=== PATIENT | male | born 1940 | race Caucasian/White ===

== ENCOUNTER → 2017-09-14 10:49 | Outpatient (CLI) | payer MEDICARE, SELFPAY ==
[2017-09-14 12:02] LABS: Absolute Lymphocyte Count 0.99 X10^3/ul (0.83-4.51); Absolute Neutrophil Count 6.1 X10^3/uL (2.0-7.7); Basophil# 0.03 X10^3/uL; Basophil% 0.4 % (0-1); Eosinophil# 0.18 X10^3/uL; Eosinophils% 2.3 % (0-5); Hemoglobin 9.7 g/dl (13.0-16.5); Lymphocyte # 0.99 X10^3/ul (4.0); Lymphocyte % 12.7 % (19-41); Mean Corp Hgb Conc 31.3 g/gl (32-36); Mean Corpuscular Hgb 34.4 pg (27.0-32.0); Mean Corpuscular Volume 109.9 fL (80-94); Mean Platelet Vol. 10.3 fl (6.2-12.0); Monocyte# 0.43 X10^3/uL; Monocyte% 5.5 % (0-10); Neutrophil # 6.14 X10^3/uL (2.7-7.7); Neutrophil % 78.8 % (47-70); Platelet Count 239 K/mm3 (150-450); RBC Distribution Width CV 14.2 % (11.6-14.6); RBC Distribution Width SD 55.8 fl (35.1-43.9); Red Blood Count 2.82 M/mm3 (4.6-6.2); White Blood Count 7.8 K/mm3 (4.4-11.0)
[2017-09-14 12:03] LABS: POSITIVE COUNT NO; POSITIVE DIFFERENTIAL NO; POSITIVE MORPHOLOGY NO
[2017-09-14 12:07] LABS: ALB/GLOB Ratio 0.5 RATIO (0.9-2.4); AST(SGOT) 14 U/L (15-37); Alanine Aminotransfer ALT/SGPT 16 U/L (16-61); Albumin, Serum 2.5 g/dL (3.2-5.0); Alkaline Phosphatase 128 U/L (45-117); Anion Gap 10 (5-15); BUN 34 mg/dL (7-18); BUN/Creat Ratio 19.5 RATIO (10-20); Calcium,Total 8.3 mg/dL (8.5-10.1); Chloride 110 mmol/L (98-107); Cholesterol 58 mg/dL (200); Creatinine, Serum 1.74 mg/dL (0.70-1.30); EST Glomerular Filtration Rate 41 mL/min (>60); Est Glom Filt Rate - Afr Amer 49 mL/min (>60); Globulin 5.4 g/dL (2.2-4.2); Glucose 94 mg/dL (74-106); High Density Lipoprotein 27 mg/dL; Potassium 4.1 mmol/L (3.5-5.1); Protein, Total 7.9 g/dL (6.4-8.2); Sodium Level 140 mmol/L (136-145); Triglycerides 82 mg/dL; Very Low Density Lipoprotein 16 mg/dL (5-40)
[2017-09-14 12:18] LABS: Hemoglobin A1c 6.7 % (4.2-6.3)
[2017-09-14 12:22] LABS: Microalbumin,Random Urine 16.5 mg/L (NO RANGE EST.); Microalbumin:Creatinine Ratio 15.1 mg/g CRE (<30 mg/g CRE)
== END ==
PROVIDERS: Family Provider Family Medicine; PCP Family Medicine; Visit Provider Family Medicine
DX: E11.40 Type 2 diabetes mellitus with diabetic neuropathy, unspecified (principal); E11.65 Type 2 diabetes mellitus with hyperglycemia; E78.5 Hyperlipidemia, unspecified; I50.9 Heart failure, unspecified; N18.3 Chronic kidney disease, stage 3 (moderate); Z79.899 Other long term (current) drug therapy
CPT/HCPCS: 80053; 80061; 82043; 82570; 83036; 85025

== ENCOUNTER 2017-09-19 09:06 | Inpatient (IN) | payer MEDICARE, SELFPAY ==
[2017-09-19] VITALS (11 sets, daily range): BP systolic 111–136; BP diastolic 52–69; PULSE 68–90; RESP 16–20; TEMP 36.1–37.3; O2SAT 94–98; BMI 42.5; BMI 40.2
--- NOTE | 2017-09-19 09:16 | RAD_ITS ---
STUDY: X-RAY - LEFT FOOT CLINICAL: Male, 77 years old. Ulcer. TECHNIQUE: 4view(s) of the foot. COMPARISON: None. FINDINGS: There is demineralization of the bones. Arthritic change of the hindfoot and midfoot. There is soft tissue lucency the plantar aspect of the heel consistent with ulcer. There is demineralization of the metatarsi. There is degenerative arthrosis of the metatarsophalangeal joint of the hallux . There are cystic regions. Normal tibial and fibular sesamoid bones. Normal interphalangeal joint of the great toe. Normal phalanges of the great toe. Arthrosis at the second through fifth metatarsophalangeal joints. Normal interphalangeal joints and phalanges of the lesser toes. The soft tissue structures are unremarkable. There is no demonstrated fracture. RAD/Foot min 3 Views IMPRESSION: No focal erosion. Soft tissue lucency consistent with ulcer. Demineralization. Arthritic change. Electronically Signed: Rupesh Carter MD at 10:20 EDT , Service support ,
--- NOTE | 2017-09-19 09:16 | RAD_ITS ---
STUDY: X-RAY - LEFT ANKLE REASON FOR EXAM: Male, 77 years old. Ulcer TECHNIQUE: 3 view(s) of the ankle. COMPARISON: None. FINDINGS: Demineralization of the visualized distal tibia and fibula. Spurring of the medial and lateral malleoli. Arthritic change at the tibiotalar articulation . Demineralization of the visualized talus and calcaneus. Mild arthritic change of the hindfoot. There are atherosclerotic calcifications. There is soft tissue lucency along the plantar aspect consistent with ulcer. RAD/Ankle min 3 Views IMPRESSION: Soft tissue ulcer. No focal erosion. Arthritic change. Demineralization. Electronically Signed: Rupesh Carter MD at 10:17 EDT , Service support ,
[2017-09-19] MEDS: 0.9% Normal Saline 1,000 ML 1000 ML IV (09:34)
--- NOTE | 2017-09-19 09:34 | ED.VISSUMM ---
- ER Visit Summary Date of Service: 09/19/17 Chief Complaint: Left foot infection History of Present Illness: The patient is a 77 M with a history of gout who presents with a left foot infection. Patient has noticed increased swelling, redness, and clear liquid drainage from his left foot and ankle. This is gradually worsening over the past 2 weeks. He takes aspirin. He does not take any other medications for gout specifically. Does report a history of CHF. Denies any history of DVT. Denies trauma. Denies fever. Physical Examination: Afebrile and vital signs unremarkable. Patient is alert and oriented. Sitting comfortably. Left foot and lower leg diffusely swollen, erythematous, warm, seeping serous fluid. Superficial ulcer to dorsal foot, medial left foot, and left heel. Neurovascularly intact distally. Test Results: Labs, ESR, CRP, cultures pending. X-rays of the foot and ankle are pending. Emergency Department Course and Treatment: Patient has signs of venous stasis from CHF. He also has a history of diabetes and gout. He has multiple foot and ankle ulcerations and signs of cellulitis. Labs, x-rays, cultures pending. Will start the patient on Zosyn and vancomycin. White count normal. No signs of sepsis. Hemoglobin 9.2. Glucose 44, BUN 55, creatinine 3.04. His creatinine has basically doubled. He received cookies and orange juice for his hypoglycemia. We will continue to monitor. ESR 80 and CRP 37. X-rays show chronic changes and skin ulcers. Blood cultures pending. Patient has acute kidney injury and says he has not urinated since yesterday. A Sosa catheter was placed to monitor urine output. Patient continued to be hypoglycemic. He has a normal mental status and no complaints. We will continue to have him eat and drink. We will continue to monitor. Patient will need inpatient care and the hospitalist was contacted. Treatment Plan: As above Disposition: Admission Impression: 1. Left leg cellulitis 2. Acute kidney injury 3. Anemia 4. Hypoglycemia This note was generated with [employer] dictation software. It may contain incorrect words, spelling, and punctuation that were not noted in review of the chart prior to signing ED Disposition - Plan for ED Patient: Chief Complaint: Lower Extremity Injury Referrals: Kian Valdez III, MD [Primary Care Provider] -
[2017-09-19 09:54] LABS: Absolute Lymphocyte Count 1.07 X10^3/ul (0.83-4.51); Absolute Neutrophil Count 5.7 X10^3/uL (2.0-7.7); Basophil# 0.02 X10^3/uL; Basophil% 0.3 % (0-1); Eosinophil# 0.16 X10^3/uL; Eosinophils% 2.2 % (0-5); Hemoglobin 9.2 g/dl (13.0-16.5); Lymphocyte # 1.07 X10^3/ul (4.0); Lymphocyte % 14.7 % (19-41); Mean Corp Hgb Conc 30.7 g/gl (32-36); Mean Corpuscular Hgb 33.3 pg (27.0-32.0); Mean Corpuscular Volume 108.7 fL (80-94); Mean Platelet Vol. 10.1 fl (6.2-12.0); Monocyte# 0.36 X10^3/uL; Monocyte% 4.9 % (0-10); Neutrophil # 5.66 X10^3/uL (2.7-7.7); Neutrophil % 77.8 % (47-70); Platelet Count 204 K/mm3 (150-450); RBC Distribution Width CV 15.1 % (11.6-14.6); RBC Distribution Width SD 59.5 fl (35.1-43.9); Red Blood Count 2.76 M/mm3 (4.6-6.2); White Blood Count 7.3 K/mm3 (4.4-11.0)
[2017-09-19 09:58] LABS: POSITIVE COUNT NO; POSITIVE DIFFERENTIAL NO; POSITIVE MORPHOLOGY NO
[2017-09-19 10:06] LABS: Erythrocyte Sedimentation Rate 80 mm/hr (0-20)
[2017-09-19 10:12] LABS: Anion Gap 11 (5-15); BUN 55 mg/dL (7-18); BUN/Creat Ratio 18.1 RATIO (10-20); Calcium,Total 8.2 mg/dL (8.5-10.1); Chloride 110 mmol/L (98-107); Creatinine, Serum 3.04 mg/dL (0.70-1.30); EST Glomerular Filtration Rate 21 mL/min (>60); Est Glom Filt Rate - Afr Amer 26 mL/min (>60); Estimated Creatinine Clearance 19.38 ml/min; Glucose 44 mg/dL (74-106); Potassium 4.4 mmol/L (3.5-5.1); Sodium Level 139 mmol/L (136-145)
--- NOTE | 2017-09-19 10:13 | ED.RN ---
DR ALSTON NOTIFIED OF BLOOD SUGAR RESULTS. PT GIVEN PEANUT BUTTER, ANJANA DOONES, AND ORANGE JUICE
[2017-09-19 10:41] LABS: Bedside Glucose 40 mg/dL (70-110)
[2017-09-19] MEDS: Dextrose 50%-Water 25 GM/50 ML DISP.SYRIN IV (11:16)
[2017-09-19] MEDS: Piperacil/Tazobactam 3.375 GM/50 ML ML IV ×2 (11:17→21:31)
[2017-09-19 11:20] LABS: Bedside Glucose 46 mg/dL (70-110)
--- NOTE | 2017-09-19 11:28 | ED.RN ---
PCU WILL CALL BACK.
--- NOTE | 2017-09-19 12:26 | VDLE_ITS ---
Reason For Study: swelling Procedure LEFT Exam performed portable in patient room. CFV is compressible, spontaneous, phasic, The exam was diagnostic. competent, and demonstrates normal A preliminary report was called and/or faxed augmentation. to the pt's RN. FV is compressible, spontaneous, phasic, competent and demonstrates normal augmentation. POP V is compressible, spontaneous, phasic, competent and demonstrates normal augmentation. T/P Trunk is compressible. PTV is compressible. LT PerV is compressible. GSV is harvested. Interpretation Summary There is no evidence of left lower extremity deep vein thrombosis. Surgically harvested left great saphenous vein. Ordering Physician: Sebastien Love Referring Physician: Kian Valdez Performed By: Lior Mar RVT
[2017-09-19 12:27] LABS: International Normalized Ratio 1.3
--- NOTE | 2017-09-19 12:28 | PCM.HP.STD ---
Problem List (1) Stage III chronic kidney disease Status: Chronic (2) Type 2 diabetes mellitus Status: Chronic (3) Status post coronary artery bypass graft Status: Chronic (4) Coronary artery disease Status: Chronic (5) Hyperlipidemia Status: Chronic (6) Hypertension Status: Chronic History of Present Illness Date of Admission: 09/19/17 Chief Complaint: Left foot/leg swelling and redness, pain. The patient is a 77 year old M with past medical history as mentioned above presented to the emergency room because of left foot/left leg swelling, redness and pain. The patient is poor informant and was not able to provide detailed history. He states that 2 weeks ago, he had acute on chronic flare up of left ankle gout with left ankle joint pain, swelling and erythema. Within couple of days, he started noticing swelling and erythema going up to the left leg, has been getting worse with increasing pain. He described this pain as dull aching pain, not radiating, could not rate his pain, no aggravating or relieving factors. He denies fever or chills. He mentioned that he has been getting gout flareups over the last 27 years. He had blisters on the dorsum of the left foot as well as the back of the left lower leg that was ruptured and he has been losing serous fluids from there and he described it as urine. He had a history of type 2 diabetes mellitus and he has been on glimepiride, metformin and pioglitazone. His most recent hemoglobin A1c was few days ago and it was 6.7. He mentioned that his blood sugar usually in the 60s-70s in the morning and in the emergency room today, blood sugar was 44 mg/dL. He had history of CAD status post CABG and that has been stable and he is on aspirin, statins, beta blockers and YOSSI inhibitors. His EKG revealed normal sinus rhythm without evidence of acute ischemic changes. He had a history of gout and he has been on allopurinol for maintenance. He has history of hypertension and his blood pressure has been under control with lisinopril and metoprolol. In the emergency room, his vital signs were stable, was afebrile. His routine blood work was remarkable for hemoglobin of 9.2 g/dL, BUN of 55 and creatinine of 3.04. His blood glucose was 44 mg/dL. His EKG revealed normal sinus rhythm, no evidence of acute ischemic changes. His ESR and C-reactive protein was elevated. Left ankle x-ray revealed soft tissue swelling/ulcer without evidence of acute fractures or focal erosion. X-ray of the left foot revealed soft tissue swelling/ulcer. He is being admitted for acute left lower extremity cellulitis, probably infected stage I left leg ulcers, acute on chronic renal failure, anemia and hypoglycemia. Past Medical History Past Medical History (Chronic Problems): Chronic Problems Stage III chronic kidney disease (Chronic) Type 2 diabetes mellitus (Chronic) Status post coronary artery bypass graft (Chronic) Coronary artery disease (Chronic) Hyperlipidemia (Chronic) Hypertension (Chronic) Allergies No Known Allergies Allergy (Verified 09/19/17 09:11) Home Medications: Ambulatory Orders Medication Instructions Recorded Aspirin 325 mg PO DAILY@0800 03/25/15 Furosemide 40 mg PO DAILY 03/25/15 Glimepiride 4 mg PO BID 03/25/15 Metformin [Metformin HCl] 500 mg PO BID 03/25/15 Allopurinol [Zyloprim] 300 mg PO DAILYCM #30 tablet 04/05/15 Atorvastatin Calcium [Lipitor] 40 mg PO QHS #30 tablet 04/05/15 Lisinopril [Zestril] 5 mg PO DAILY #30 tablet 04/05/15 Metoprolol Tartrate [Lopressor 100 mg PO BID #60 tablet 04/05/15 (beta dixon)] Pioglitazone [Actos] 45 mg PO DAILY 09/19/17 Surgical History: coronary bypass surgery, herniorrhaphy Psychiatric History: No pertinent psych hx Lives: Spouse/ Significant Other Smoking Status: Former smoker Alcohol: None Drugs: None - *Family History Maternal History Items: No pertinent history Paternal History Items: No pertinent history Review of Systems Constitutional: Denies: Anorexia, Chills, Fever, Weakness Eyes: Denies: Blurred vision, Double vision, Drainage, Redness HEENT: Denies: Difficulty Hearing, Ear Pain, Eye Pain, Nasal Congestion, Sore Throat Cardiovascular: Reports: Edema. Denies: Chest Pain, Chest Pressure, Chest Tightness, Heaviness, Light Headedness, Palpitations, Paroxysmal Noc. Dyspnea, Syncope Respiratory: Denies: Cough, Pleuritic Pain, Shortness of Breath, Sputum production, Wheezing Gastrointestinal: Denies: Abdominal Pain, Constipation, Diarrhea, Nausea, Vomiting Genitourinary: Denies: Dysuria, Frequency, Hematuria Musculoskeletal: Reports: Leg Pain. Denies: Arm Pain, Back Pain Skin: Denies: Dryness, Rash Neurological: Denies: Balance problems, Double vision, Change in Speech, Slurred speech, Confusion, Headaches, Incoordination, Numbness Psychiatric: Denies: Anxiety, Depression Endocrine: Denies: Change in Body Habitus, Polydipsia VTE Information - Inpt Only VTE Present on Admission: No VTE Mechan Device Prophylaxis: None VTE Pharm Prophylaxis ordered?: Yes - Physical Exam General: Alert, Oriented x3, Cooperative, No apparent distress HEENT: Atraumatic, PERRLA, EOMI Oral: Moist Mucosa, No Gingival or Mucosal Lesions/ Ulcerations Neck: Supple, No JVD, Negative Carotid Bruits, Trachea Midline, Thyroid Normal Size and Texture Lungs: Clear to auscultation, No rhonchi, No wheeze, No rales, Diminished Cardiovascular: Regular rate, Regular Rhythm, Normal S1, Normal S2, PMI Normal Abdomen: Bowel Sounds Present, Soft, Non Tender, Non-Distended, No Hepato-splenomegaly, Obese Extremities: No clubbing, No cyanosis, Edema - ++ Edema. Left lower extremity: Erythema and swelling from just below left knee down to the left foot, hot to palpation, nontender. Stage I multiple ulcers on the dorsum of the left foot measuring about 2 x 2 centimeters, left medial malleolar ulcer measuring about 3 x 3 cm and another ulcer at the back of the lower left leg measuring about 5 x 5 cm with oozing and serous drainage. Skin: No rashes, Ulcer/ Wound Lymphatic: No Cervical, Supraclavicular, or Inguinal Adenopathy Neurological: Cranial nerves II-XII grossly intact, Motor Exam 5/5 strength throughout Psych/Mental Status: Normal Affect, Appropriate, Alert and oriented to time, place, person, mood and affect Vital Signs Temp Pulse Resp BP Pulse Ox 97.7 F L 74 20 H 112/52 L 97 09/19/17 12:06 09/19/17 12:06 09/19/17 12:06 09/19/17 12:06 09/19/17 12:06 Oxygen Delivery Method Room Air Weight: 264 lb 8.875 oz Body Mass Index (BMI) 40.2 POC Glucose 09/19/17 11:13 POC Glucose 46 L Laboratory Tests 09/19/17 09/19/17 09/19/17 Range/Units 12:38 12:35 11:13 WBC (4.4-11.0) K/mm3 RBC (4.6-6.2) M/mm3 Hgb (13.0-16.5) g/dl Hct (40-54) % MCV (80-94) fL MCH (27.0-32.0) pg MCHC (32-36) g/gl RDW (11.6-14.6) % RDW Differential (35.1-43.9) fl Plt Count (150-450) K/mm3 MPV (6.2-12.0) fl Immature Gran % (Auto) (0.0-0.9) % Neut % (Auto) (47-70) % Lymph % (Auto) (19-41) % [place] % (Auto) (0-10) % Eos % (Auto) (0-5) % Baso % (Auto) (0-1) % Absolute Neuts (auto) (2.0-7.7) X10^3/uL Absolute Lymphs (auto) (0.83-4.51) X10^3/ul Total Counted ESR (0-20) mm/hr PT (11.7-14.9) SECONDS INR Sodium (136-145) mmol/L Potassium (3.5-5.1) mmol/L Chloride (98-107) mmol/L Carbon Dioxide (21.0-32.0) mmol/L Anion Gap (5-15) BUN (7-18) mg/dL Creatinine (0.70-1.30) mg/dL Estim Creat Clear Calc ml/min Est GFR (MDRD) Af Amer (>60) mL/min Est GFR (MDRD) Non-Af (>60) mL/min BUN/Creatinine Ratio (10-20) RATIO Glucose (74-106) mg/dL Uric Acid (3.5-7.2) mg/dL Calcium (8.5-10.1) mg/dL Iron (65-175) ug/dL TIBC (250-450) ug/dL Iron Saturation (15.0-55.0) % Ferritin (26-388) ng/mL Total Bilirubin (0.20-1.00) mg/dL Direct Bilirubin (0.00-0.30) mg/dL AST (15-37) U/L ALT (16-61) U/L Alkaline Phosphatase (45-117) U/L C-React Prot Ext Range (0.0-3.0) mg/L Total Protein (6.4-8.2) g/dL Albumin (3.2-5.0) g/dL Globulin (2.2-4.2) g/dL Urine Color Yellow (Yellow) Urine Clarity Clear (Clear) Urine pH 5.0 (5.0 - 8.0) Ur Specific [place] 1.020 (1.002-1.030) Urine Protein 30 H (Negative) mg/dl Urine Glucose (UA) Normal (Normal) mg/dl Urine Ketones Negative (Negative) mg/dl Urine Occult Blood 250 H (Negative) /ul Urine Nitrite Negative (Negative) Urine Bilirubin Negative (Negative) mg/dL Urine Urobilinogen Normal (Normal) mg/dl Ur Leukocyte Esterase 500 H (Negative) /ul POC Glucose 145 H 46 L (70-110) mg/dL 09/19/17 09/19/17 09/19/17 Range/Units 10:34 10:25 09:30 WBC (4.4-11.0) K/mm3 RBC (4.6-6.2) M/mm3 Hgb (13.0-16.5) g/dl Hct (40-54) % MCV (80-94) fL MCH (27.0-32.0) pg MCHC (32-36) g/gl RDW (11.6-14.6) % RDW Differential (35.1-43.9) fl Plt Count (150-450) K/mm3 MPV (6.2-12.0) fl Immature Gran % (Auto) (0.0-0.9) % Neut % (Auto) (47-70) % Lymph % (Auto) (19-41) % [place] % (Auto) (0-10) % Eos % (Auto) (0-5) % Baso % (Auto) (0-1) % Absolute Neuts (auto) (2.0-7.7) X10^3/uL Absolute Lymphs (auto) (0.83-4.51) X10^3/ul Total Counted ESR (0-20) mm/hr PT 16.0 H (11.7-14.9) SECONDS INR 1.3 Sodium (136-145) mmol/L Potassium (3.5-5.1) mmol/L Chloride (98-107) mmol/L Carbon Dioxide (21.0-32.0) mmol/L Anion Gap (5-15) BUN (7-18) mg/dL Creatinine (0.70-1.30) mg/dL Estim Creat Clear Calc ml/min Est GFR (MDRD) Af Amer (>60) mL/min Est GFR (MDRD) Non-Af (>60) mL/min BUN/Creatinine Ratio (10-20) RATIO Glucose (74-106) mg/dL Uric Acid 6.2 (3.5-7.2) mg/dL Calcium (8.5-10.1) mg/dL Iron 42 L (65-175) ug/dL TIBC 346 (250-450) ug/dL Iron Saturation 12.1 L (15.0-55.0) % Ferritin 87 (26-388) ng/mL Total Bilirubin 0.20 (0.20-1.00) mg/dL Direct Bilirubin 0.11 (0.00-0.30) mg/dL AST 15 (15-37) U/L ALT 11 L (16-61) U/L Alkaline Phosphatase 118 H (45-117) U/L C-React Prot Ext Range (0.0-3.0) mg/L Total Protein 7.5 (6.4-8.2) g/dL Albumin 2.5 L (3.2-5.0) g/dL Globulin 5.0 H (2.2-4.2) g/dL Urine Color (Yellow) Urine Clarity (Clear) Urine pH (5.0 - 8.0) Ur Specific [place] (1.002-1.030) Urine Protein (Negative) mg/dl Urine Glucose (UA) (Normal) mg/dl Urine Ketones (Negative) mg/dl Urine Occult Blood (Negative) /ul Urine Nitrite (Negative) Urine Bilirubin (Negative) mg/dL Urine Urobilinogen (Normal) mg/dl Ur Leukocyte Esterase (Negative) /ul POC Glucose 40 L* (70-110) mg/dL 09/19/17 09/19/17 Range/Units 09:30 09:30 WBC 7.3 (4.4-11.0) K/mm3 RBC 2.76 L (4.6-6.2) M/mm3 Hgb 9.2 L (13.0-16.5) g/dl Hct 30.0 L (40-54) % MCV 108.7 H (80-94) fL MCH 33.3 H (27.0-32.0) pg MCHC 30.7 L (32-36) g/gl RDW 15.1 H (11.6-14.6) % RDW Differential 59.5 H (35.1-43.9) fl Plt Count 204 (150-450) K/mm3 MPV 10.1 (6.2-12.0) fl Immature Gran % (Auto) 0.100 (0.0-0.9) % Neut % (Auto) 77.8 H (47-70) % Lymph % (Auto) 14.7 L (19-41) % [place] % (Auto) 4.9 (0-10) % Eos % (Auto) 2.2 (0-5) % Baso % (Auto) 0.3 (0-1) % Absolute Neuts (auto) 5.7 (2.0-7.7) X10^3/uL Absolute Lymphs (auto) 1.07 (0.83-4.51) X10^3/ul Total Counted Not Reportable ESR 80 H (0-20) mm/hr PT (11.7-14.9) SECONDS INR Sodium 139 (136-145) mmol/L Potassium 4.4 (3.5-5.1) mmol/L Chloride 110 H (98-107) mmol/L Carbon Dioxide 18.0 L (21.0-32.0) mmol/L Anion Gap 11 (5-15) BUN 55 H (7-18) mg/dL Creatinine 3.04 H (0.70-1.30) mg/dL Estim Creat Clear Calc 19.38 ml/min Est GFR (MDRD) Af Amer 26 L (>60) mL/min Est GFR (MDRD) Non-Af 21 L (>60) mL/min BUN/Creatinine Ratio 18.1 (10-20) RATIO Glucose 44 L* (74-106) mg/dL Uric Acid (3.5-7.2) mg/dL Calcium 8.2 L (8.5-10.1) mg/dL Iron (65-175) ug/dL TIBC (250-450) ug/dL Iron Saturation (15.0-55.0) % Ferritin (26-388) ng/mL Total Bilirubin (0.20-1.00) mg/dL Direct Bilirubin (0.00-0.30) mg/dL AST (15-37) U/L ALT (16-61) U/L Alkaline Phosphatase (45-117) U/L C-React Prot Ext Range 37.70 H (0.0-3.0) mg/L Total Protein (6.4-8.2) g/dL Albumin (3.2-5.0) g/dL Globulin (2.2-4.2) g/dL Urine Color (Yellow) Urine Clarity (Clear) Urine pH (5.0 - 8.0) Ur Specific [place] (1.002-1.030) Urine Protein (Negative) mg/dl Urine Glucose (UA) (Normal) mg/dl Urine Ketones (Negative) mg/dl Urine Occult Blood (Negative) /ul Urine Nitrite (Negative) Urine Bilirubin (Negative) mg/dL Urine Urobilinogen (Normal) mg/dl Ur Leukocyte Esterase (Negative) /ul POC Glucose (70-110) mg/dL Clinical Impression(s) from Imaging Studies Ankle X-Ray 09/19/17 09:16 IMPRESSION: Soft tissue ulcer. No focal erosion. Arthritic change. Demineralization. Electronically Signed: Rupesh Carter MD at 10:17 EDT , Service support , Foot X-Ray 09/19/17 09:16 IMPRESSION: No focal erosion. Soft tissue lucency consistent with ulcer. Demineralization. Arthritic change. Electronically Signed: Rupesh Carter MD at 10:20 EDT , Service support , Assessment/Plan This is a 77 years old male patient presented to the emergency room because of left leg/left foot pain, swelling and erythema in context of history of recent flareup, found to have acute left lower extremity cellulitis with infected left leg/foot ulcers, acute kidney injury on top of stage III chronic kidney disease, hypoglycemia and anemia. #1 acute left lower extremity cellulitis/infected left leg/left foot ulcers: Patient had chronic gout with frequent flareups, most recently was couple weeks ago. Since then, he has been having increasing left leg/left foot swelling and erythema as well as blistering that was ruptured. No evidence of sepsis or severe sepsis. X-ray of the left foot and left ankle reveals soft tissue swelling, no bony erosions. ESR and C-reactive protein are high. Plan: Admit to PCU, cardiac monitoring, blood culture, wound culture, venous Doppler to rule out DVT, start IV vancomycin and Zosyn, wound care nurse consult, podiatry consult, PT OT evaluation and treatment. #2 probable acute gouty arthritis of the left ankle/left foot: Left leg and left foot is diffusely red and erythematous, patient complained of left ankle pain. At this time, underlying acute gouty attacks cannot be ruled out. Plan: Check serum uric acid, start prednisone, hold allopurinol. #3 acute kidney injury on top of stage III chronic kidney disease: With oliguria. This is likely due to medication side effects including Lasix, metformin, glimepiride and allopurinol. Plan for IV fluids, input output chart, hold nephrotoxic drugs, repeat BMP tomorrow morning. #4 hypoglycemia: Blood sugar was in the 40s in the emergency room. Patient mentioned that his blood sugar in the mornings is around 60s-70s, he does check his blood sugar once a day. He was given D50 in the emergency room. Plan: IV fluids with D5 percent normal saline, Accu-Cheks every 4 hours, insulin sliding scale, hold metformin, glimepiride and pioglitazone. #5 anemia: Unknown if this is acute on chronic. His hemoglobin back in July, was 14.3. Few days ago, hemoglobin was 9.7 g/dL and admission hemoglobin is 9.2 g/dL. Patient denied any active bleeding from his body orifices. His macrocytic anemia, MCV is high. Platelet count is normal. Plan: Iron, serum ferritin, TIBC, B12, RBC folate, pro time and INR, stool for occult blood. #6 CAD status post CABG: Stable, no acute issues. EKG reviewed, no acute ischemic changes. Continue aspirin and metoprolol, hold lisinopril because of acute kidney injury. #7 type 2 diabetes mellitus: Regular diet, Accu-Cheks every 4 hours, insulin sliding scale, hold metformin, glimepiride and pioglitazone. #8 hypertension: Blood pressure stable, continue metoprolol, hold lisinopril. #9 hyperlipidemia: Continue statins. #10 DVT prophylaxis: Subcu heparin. This note was generated with [employer] dictation software. It may contain incorrect words, spelling, and punctuation that were not noted in checking the note before signing. Code Visit Inpatient E&M: 81650 Init Hosp L3
--- NOTE | 2017-09-19 12:34 | HP.PCM_ITS ---
Problem List (1) Stage III chronic kidney disease Status: Chronic (2) Type 2 diabetes mellitus Status: Chronic (3) Status post coronary artery bypass graft Status: Chronic (4) Coronary artery disease Status: Chronic (5) Hyperlipidemia Status: Chronic (6) Hypertension Status: Chronic History of Present Illness Date of Admission: 09/19/17 Chief Complaint: Left foot/leg swelling and redness, pain. The patient is a 77 year old M with past medical history as mentioned above presented to the emergency room because of left foot/left leg swelling, redness and pain. The patient is poor informant and was not able to provide detailed history. He states that 2 weeks ago, he had acute on chronic flare up of left ankle gout with left ankle joint pain, swelling and erythema. Within couple of days, he started noticing swelling and erythema going up to the left leg, has been getting worse with increasing pain. He described this pain as dull aching pain, not radiating, could not rate his pain, no aggravating or relieving factors. He denies fever or chills. He mentioned that he has been getting gout flareups over the last 27 years. He had blisters on the dorsum of the left foot as well as the back of the left lower leg that was ruptured and he has been losing serous fluids from there and he described it as urine. He had a history of type 2 diabetes mellitus and he has been on glimepiride, metformin and pioglitazone. His most recent hemoglobin A1c was few days ago and it was 6.7. He mentioned that his blood sugar usually in the 60s-70s in the morning and in the emergency room today, blood sugar was 44 mg/dL. He had history of CAD status post CABG and that has been stable and he is on aspirin, statins, beta blockers and YOSSI inhibitors. His EKG revealed normal sinus rhythm without evidence of acute ischemic changes. He had a history of gout and he has been on allopurinol for maintenance. He has history of hypertension and his blood pressure has been under control with lisinopril and metoprolol. In the emergency room, his vital signs were stable, was afebrile. His routine blood work was remarkable for hemoglobin of 9.2 g/dL, BUN of 55 and creatinine of 3.04. His blood glucose was 44 mg/dL. His EKG revealed normal sinus rhythm, no evidence of acute ischemic changes. His ESR and C-reactive protein was elevated. Left ankle x-ray revealed soft tissue swelling/ulcer without evidence of acute fractures or focal erosion. X-ray of the left foot revealed soft tissue swelling/ulcer. He is being admitted for acute left lower extremity cellulitis, probably infected stage I left leg ulcers, acute on chronic renal failure, anemia and hypoglycemia. Past Medical History Past Medical History (Chronic Problems): Chronic Problems Stage III chronic kidney disease (Chronic) Type 2 diabetes mellitus (Chronic) Status post coronary artery bypass graft (Chronic) Coronary artery disease (Chronic) Hyperlipidemia (Chronic) Hypertension (Chronic) Allergies No Known Allergies Allergy (Verified 09/19/17 09:11) Home Medications: Ambulatory Orders Medication Instructions Recorded Aspirin 325 mg PO DAILY@0800 03/25/15 Furosemide 40 mg PO DAILY 03/25/15 Glimepiride 4 mg PO BID 03/25/15 Metformin [Metformin HCl] 500 mg PO BID 03/25/15 Allopurinol [Zyloprim] 300 mg PO DAILYCM #30 tablet 04/05/15 Atorvastatin Calcium [Lipitor] 40 mg PO QHS #30 tablet 04/05/15 Lisinopril [Zestril] 5 mg PO DAILY #30 tablet 04/05/15 Metoprolol Tartrate [Lopressor 100 mg PO BID #60 tablet 04/05/15 (beta dixon)] Pioglitazone [Actos] 45 mg PO DAILY 09/19/17 Surgical History: coronary bypass surgery, herniorrhaphy Psychiatric History: No pertinent psych hx Lives: Spouse/ Significant Other Smoking Status: Former smoker Alcohol: None Drugs: None - *Family History Maternal History Items: No pertinent history Paternal History Items: No pertinent history Review of Systems Constitutional: Denies: Anorexia, Chills, Fever, Weakness Eyes: Denies: Blurred vision, Double vision, Drainage, Redness HEENT: Denies: Difficulty Hearing, Ear Pain, Eye Pain, Nasal Congestion, Sore Throat Cardiovascular: Reports: Edema. Denies: Chest Pain, Chest Pressure, Chest Tightness, Heaviness, Light Headedness, Palpitations, Paroxysmal Noc. Dyspnea, Syncope Respiratory: Denies: Cough, Pleuritic Pain, Shortness of Breath, Sputum production, Wheezing Gastrointestinal: Denies: Abdominal Pain, Constipation, Diarrhea, Nausea, Vomiting Genitourinary: Denies: Dysuria, Frequency, Hematuria Musculoskeletal: Reports: Leg Pain. Denies: Arm Pain, Back Pain Skin: Denies: Dryness, Rash Neurological: Denies: Balance problems, Double vision, Change in Speech, Slurred speech, Confusion, Headaches, Incoordination, Numbness Psychiatric: Denies: Anxiety, Depression Endocrine: Denies: Change in Body Habitus, Polydipsia VTE Information - Inpt Only VTE Present on Admission: No VTE Mechan Device Prophylaxis: None VTE Pharm Prophylaxis ordered?: Yes - Physical Exam General: Alert, Oriented x3, Cooperative, No apparent distress HEENT: Atraumatic, PERRLA, EOMI Oral: Moist Mucosa, No Gingival or Mucosal Lesions/ Ulcerations Neck: Supple, No JVD, Negative Carotid Bruits, Trachea Midline, Thyroid Normal Size and Texture Lungs: Clear to auscultation, No rhonchi, No wheeze, No rales, Diminished Cardiovascular: Regular rate, Regular Rhythm, Normal S1, Normal S2, PMI Normal Abdomen: Bowel Sounds Present, Soft, Non Tender, Non-Distended, No Hepato- splenomegaly, Obese Extremities: No clubbing, No cyanosis, Edema - ++ Edema. Left lower extremity: Erythema and swelling from just below left knee down to the left foot, hot to palpation, nontender. Stage I multiple ulcers on the dorsum of the left foot measuring about 2 x 2 centimeters, left medial malleolar ulcer measuring about 3 x 3 cm and another ulcer at the back of the lower left leg measuring about 5 x 5 cm with oozing and serous drainage. Skin: No rashes, Ulcer/ Wound Lymphatic: No Cervical, Supraclavicular, or Inguinal Adenopathy Neurological: Cranial nerves II-XII grossly intact, Motor Exam 5/5 strength throughout Psych/Mental Status: Normal Affect, Appropriate, Alert and oriented to time, place, person, mood and affect Vital Signs Temp Pulse Resp BP Pulse Ox 97.7 F L 74 20 H 112/52 L 97 09/19/17 12:06 09/19/17 12:06 09/19/17 12:06 09/19/17 12:06 09/19/17 12:06 Oxygen Delivery Method Room Air Weight: 264 lb 8.875 oz Body Mass Index (BMI) 40.2 POC Glucose 09/19/17 11:13 POC Glucose 46 L Laboratory Tests 3 09/19/17 09/19/17 09/19/17 Range/Units 12:38 12:35 11:13 WBC (4.4-11.0) K/mm3 RBC (4.6-6.2) M/mm3 Hgb (13.0-16.5) g/dl Hct (40-54) % MCV (80-94) fL MCH (27.0-32.0) pg MCHC (32-36) g/gl RDW (11.6-14.6) % RDW Differential (35.1-43.9) fl Plt Count (150-450) K/mm3 MPV (6.2-12.0) fl Immature Gran % (Auto) (0.0-0.9) % Neut % (Auto) (47-70) % Lymph % (Auto) (19-41) % [place] % (Auto) (0-10) % Eos % (Auto) (0-5) % Baso % (Auto) (0-1) % Absolute Neuts (auto) (2.0-7.7) X10^3/uL Absolute Lymphs (auto) (0.83-4.51) X10^3/ul Total Counted ESR (0-20) mm/hr PT (11.7-14.9) SECONDS INR Sodium (136-145) mmol/L Potassium (3.5-5.1) mmol/L Chloride (98-107) mmol/L Carbon Dioxide (21.0-32.0) mmol/L Anion Gap (5-15) BUN (7-18) mg/dL Creatinine (0.70-1.30) mg/dL Estim Creat Clear Calc ml/min Est GFR (MDRD) Af Amer (>60) mL/min Est GFR (MDRD) Non-Af (>60) mL/min BUN/Creatinine Ratio (10-20) RATIO Glucose (74-106) mg/dL Uric Acid (3.5-7.2) mg/dL Calcium (8.5-10.1) mg/dL Iron (65-175) ug/dL TIBC (250-450) ug/dL Iron Saturation (15.0-55.0) % Ferritin (26-388) ng/mL Total Bilirubin (0.20-1.00) mg/dL Direct Bilirubin (0.00-0.30) mg/dL AST (15-37) U/L ALT (16-61) U/L Alkaline Phosphatase (45-117) U/L C-React Prot Ext Range (0.0-3.0) mg/L Total Protein (6.4-8.2) g/dL Albumin (3.2-5.0) g/dL Globulin (2.2-4.2) g/dL Urine Color Yellow (Yellow) Urine Clarity Clear (Clear) Urine pH 5.0 (5.0 - 8.0) Ur Specific [place] 1.020 (1.002-1.030) Urine Protein 30 H (Negative) mg/dl Urine Glucose (UA) Normal (Normal) mg/dl Urine Ketones Negative (Negative) mg/dl Urine Occult Blood 250 H (Negative) /ul Urine Nitrite Negative (Negative) Urine Bilirubin Negative (Negative) mg/dL Urine Urobilinogen Normal (Normal) mg/dl Ur Leukocyte Esterase 500 H (Negative) /ul POC Glucose 145 H 46 L (70-110) mg/dL 3 09/19/17 09/19/17 09/19/17 Range/Units 10:34 10:25 09:30 WBC (4.4-11.0) K/mm3 RBC (4.6-6.2) M/mm3 Hgb (13.0-16.5) g/dl Hct (40-54) % MCV (80-94) fL MCH (27.0-32.0) pg MCHC (32-36) g/gl RDW (11.6-14.6) % RDW Differential (35.1-43.9) fl Plt Count (150-450) K/mm3 MPV (6.2-12.0) fl Immature Gran % (Auto) (0.0-0.9) % Neut % (Auto) (47-70) % Lymph % (Auto) (19-41) % [place] % (Auto) (0-10) % Eos % (Auto) (0-5) % Baso % (Auto) (0-1) % Absolute Neuts (auto) (2.0-7.7) X10^3/uL Absolute Lymphs (auto) (0.83-4.51) X10^3/ul Total Counted ESR (0-20) mm/hr PT 16.0 H (11.7-14.9) SECONDS INR 1.3 Sodium (136-145) mmol/L Potassium (3.5-5.1) mmol/L Chloride (98-107) mmol/L Carbon Dioxide (21.0-32.0) mmol/L Anion Gap (5-15) BUN (7-18) mg/dL Creatinine (0.70-1.30) mg/dL Estim Creat Clear Calc ml/min Est GFR (MDRD) Af Amer (>60) mL/min Est GFR (MDRD) Non-Af (>60) mL/min BUN/Creatinine Ratio (10-20) RATIO Glucose (74-106) mg/dL Uric Acid 6.2 (3.5-7.2) mg/dL Calcium (8.5-10.1) mg/dL Iron 42 L (65-175) ug/dL TIBC 346 (250-450) ug/dL Iron Saturation 12.1 L (15.0-55.0) % Ferritin 87 (26-388) ng/mL Total Bilirubin 0.20 (0.20-1.00) mg/dL Direct Bilirubin 0.11 (0.00-0.30) mg/dL AST 15 (15-37) U/L ALT 11 L (16-61) U/L Alkaline Phosphatase 118 H (45-117) U/L C-React Prot Ext Range (0.0-3.0) mg/L Total Protein 7.5 (6.4-8.2) g/dL Albumin 2.5 L (3.2-5.0) g/dL Globulin 5.0 H (2.2-4.2) g/dL Urine Color (Yellow) Urine Clarity (Clear) Urine pH (5.0 - 8.0) Ur Specific [place] (1.002-1.030) Urine Protein (Negative) mg/dl Urine Glucose (UA) (Normal) mg/dl Urine Ketones (Negative) mg/dl Urine Occult Blood (Negative) /ul Urine Nitrite (Negative) Urine Bilirubin (Negative) mg/dL Urine Urobilinogen (Normal) mg/dl Ur Leukocyte Esterase (Negative) /ul POC Glucose 40 L* (70-110) mg/dL 3 09/19/17 09/19/17 Range/Units 09:30 09:30 WBC 7.3 (4.4-11.0) K/mm3 RBC 2.76 L (4.6-6.2) M/mm3 Hgb 9.2 L (13.0-16.5) g/dl Hct 30.0 L (40-54) % MCV 108.7 H (80-94) fL MCH 33.3 H (27.0-32.0) pg MCHC 30.7 L (32-36) g/gl RDW 15.1 H (11.6-14.6) % RDW Differential 59.5 H (35.1-43.9) fl Plt Count 204 (150-450) K/mm3 MPV 10.1 (6.2-12.0) fl Immature Gran % (Auto) 0.100 (0.0-0.9) % Neut % (Auto) 77.8 H (47-70) % Lymph % (Auto) 14.7 L (19-41) % [place] % (Auto) 4.9 (0-10) % Eos % (Auto) 2.2 (0-5) % Baso % (Auto) 0.3 (0-1) % Absolute Neuts (auto) 5.7 (2.0-7.7) X10^3/uL Absolute Lymphs (auto) 1.07 (0.83-4.51) X10^3/ul Total Counted Not Reportable ESR 80 H (0-20) mm/hr PT (11.7-14.9) SECONDS INR Sodium 139 (136-145) mmol/L Potassium 4.4 (3.5-5.1) mmol/L Chloride 110 H (98-107) mmol/L Carbon Dioxide 18.0 L (21.0-32.0) mmol/L Anion Gap 11 (5-15) BUN 55 H (7-18) mg/dL Creatinine 3.04 H (0.70-1.30) mg/dL Estim Creat Clear Calc 19.38 ml/min Est GFR (MDRD) Af Amer 26 L (>60) mL/min Est GFR (MDRD) Non-Af 21 L (>60) mL/min BUN/Creatinine Ratio 18.1 (10-20) RATIO Glucose 44 L* (74-106) mg/dL Uric Acid (3.5-7.2) mg/dL Calcium 8.2 L (8.5-10.1) mg/dL Iron (65-175) ug/dL TIBC (250-450) ug/dL Iron Saturation (15.0-55.0) % Ferritin (26-388) ng/mL Total Bilirubin (0.20-1.00) mg/dL Direct Bilirubin (0.00-0.30) mg/dL AST (15-37) U/L ALT (16-61) U/L Alkaline Phosphatase (45-117) U/L C-React Prot Ext Range 37.70 H (0.0-3.0) mg/L Total Protein (6.4-8.2) g/dL Albumin (3.2-5.0) g/dL Globulin (2.2-4.2) g/dL Urine Color (Yellow) Urine Clarity (Clear) Urine pH (5.0 - 8.0) Ur Specific [place] (1.002-1.030) Urine Protein (Negative) mg/dl Urine Glucose (UA) (Normal) mg/dl Urine Ketones (Negative) mg/dl Urine Occult Blood (Negative) /ul Urine Nitrite (Negative) Urine Bilirubin (Negative) mg/dL Urine Urobilinogen (Normal) mg/dl Ur Leukocyte Esterase (Negative) /ul POC Glucose (70-110) mg/dL Clinical Impression(s) from Imaging Studies Ankle X-Ray 09/19/17 09:16 IMPRESSION: Soft tissue ulcer. No focal erosion. Arthritic change. Demineralization. Electronically Signed: Rupesh Carter MD at 10:17 EDT , Service support , Foot X-Ray 09/19/17 09:16 IMPRESSION: No focal erosion. Soft tissue lucency consistent with ulcer. Demineralization. Arthritic change. Electronically Signed: Rupesh Carter MD at 10:20 EDT , Service support , Assessment/Plan This is a 77 years old male patient presented to the emergency room because of left leg/left foot pain, swelling and erythema in context of history of recent flareup, found to have acute left lower extremity cellulitis with infected left leg/foot ulcers, acute kidney injury on top of stage III chronic kidney disease , hypoglycemia and anemia. #1 acute left lower extremity cellulitis/infected left leg/left foot ulcers: Patient had chronic gout with frequent flareups, most recently was couple weeks ago. Since then, he has been having increasing left leg/left foot swelling and erythema as well as blistering that was ruptured. No evidence of sepsis or severe sepsis. X-ray of the left foot and left ankle reveals soft tissue swelling, no bony erosions. ESR and C-reactive protein are high. Plan: Admit to PCU, cardiac monitoring, blood culture, wound culture, venous Doppler to rule out DVT, start IV vancomycin and Zosyn, wound care nurse consult, podiatry consult, PT OT evaluation and treatment. #2 probable acute gouty arthritis of the left ankle/left foot: Left leg and left foot is diffusely red and erythematous, patient complained of left ankle pain. At this time, underlying acute gouty attacks cannot be ruled out. Plan: Check serum uric acid, start prednisone, hold allopurinol. #3 acute kidney injury on top of stage III chronic kidney disease: With oliguria. This is likely due to medication side effects including Lasix, metformin, glimepiride and allopurinol. Plan for IV fluids, input output chart , hold nephrotoxic drugs, repeat BMP tomorrow morning. #4 hypoglycemia: Blood sugar was in the 40s in the emergency room. Patient mentioned that his blood sugar in the mornings is around 60s-70s, he does check his blood sugar once a day. He was given D50 in the emergency room. Plan: IV fluids with D5 percent normal saline, Accu-Cheks every 4 hours, insulin sliding scale, hold metformin, glimepiride and pioglitazone. #5 anemia: Unknown if this is acute on chronic. His hemoglobin back in July was 14.3. Few days ago, hemoglobin was 9.7 g/dL and admission hemoglobin is 9.2 g/dL. Patient denied any active bleeding from his body orifices. His macrocytic anemia, MCV is high. Platelet count is normal. Plan : Iron, serum ferritin, TIBC, B12, RBC folate, pro time and INR, stool for occult blood. #6 CAD status post CABG: Stable, no acute issues. EKG reviewed, no acute ischemic changes. Continue aspirin and metoprolol, hold lisinopril because of acute kidney injury. #7 type 2 diabetes mellitus: Regular diet, Accu-Cheks every 4 hours, insulin sliding scale, hold metformin, glimepiride and pioglitazone. #8 hypertension: Blood pressure stable, continue metoprolol, hold lisinopril. #9 hyperlipidemia: Continue statins. #10 DVT prophylaxis: Subcu heparin. This note was generated with [employer] dictation software. It may contain incorrect words, spelling, and punctuation that were not noted in checking the note before signing. Code Visit Inpatient E&M: 16936 Init Hosp L3
[2017-09-19 12:35] LABS: AST(SGOT) 15 U/L (15-37); Alanine Aminotransfer ALT/SGPT 11 U/L (16-61); Albumin, Serum 2.5 g/dL (3.2-5.0); Alkaline Phosphatase 118 U/L (45-117); Bilirubin, Direct 0.11 mg/dL (0.00-0.30); Ferritin 87 ng/mL (26-388); Iron 42 ug/dL (65-175); Iron Binding Capacity,Total 346 ug/dL (250-450); PERCENT IRON SATURATION 12.1 % (15.0-55.0); Protein, Total 7.5 g/dL (6.4-8.2); Uric Acid 6.2 mg/dL (3.5-7.2)
--- NOTE | 2017-09-19 12:45 | NURSING ---
this RN entered room to obtain urine sample from catheter. catheter was out and lying on bed. Pt denied pain. Reinserted new catheter without complications.
[2017-09-19 12:55] LABS: Bedside Glucose 145 mg/dL (70-110)
[2017-09-19 13:09] LABS: Mucous, Urine 0 SEEN /hpf (<or=2+); Squamous Epithelial Cells - UA 0 SEEN /hpf (0-5)
[2017-09-19 13:14] LABS: Color, Urine Yellow (Yellow); Glucose, Dipstick Normal (Normal); Ketone-Dipstick Negative (Negative); Leukocyte Esterase-Dipstick 500 /ul (Negative); Nitrite-Dipstick Negative (Negative); Occult Blood-Urine 250 /ul (Negative); Protein-Dipstick 30 mg/dl (Negative); Urine Bilirubin Dipstick Negative (Negative); Urine Clarity Clear (Clear); Urine Urobilinogen Normal (Normal)
[2017-09-19 13:25] LABS: Bacteria 1+ /hpf (None Seen); Red Blood Cells-Urine 10-25 SEEN /hpf (0-5); White Blood Cells 25-50 SEEN /hpf (0-5)
[2017-09-19] MEDS: Dextrose 5%/0.9% NaCl 1,000 ML 100 ML IV (13:25)
[2017-09-19] MEDS: predniSONE 20 MG Tablet 60 MG PO (13:27)
[2017-09-19] MEDS: Heparin Injection 5,000 UNITS/ML Syringe 5000 UNITS SC ×2 (13:27→21:31)
[2017-09-19 15:08] LABS: M R Staph aureus DNA By PCR Negative (Negative); Probe Check PASS; Specimen Processing Control PASS; Staph aureus DNA By PCR POSITIVE (Negative)
[2017-09-19 17:00] LABS: Bedside Glucose 195 mg/dL (70-110)
[2017-09-19] MEDS: Metoprolol Tartrate 100 MG Tablet PO (21:31)
[2017-09-19] MEDS: Atorvastatin Calcium 40 MG Tablet PO (21:31)
[2017-09-19 22:51] LABS: Bedside Glucose 339 mg/dL (70-110)
--- NOTE | 2017-09-19 23:35 | CON.PCM_ITS ---
Reason for Consult Date of Consultation: 09/19/17 Reason for Consultation: Left lower extremity ulcerations and cellulitis History of Present Illness: The patient is a 77 year old gentleman with history of multiple medical problems including diabetes, chronic kidney disease, CAD, and gout was seen for left foot/ankle ulcerations and cellulitis. Patient has ulcerations to the top of the foot, heel as well as the back of his leg. Patient relates the heel ulceration has been present for a couple of weeks, he relates he has been treating the ulcerations with bandaids and A+D ointment. He relates the left heel ulceration is painful when walking, but he relates he does not walk much and uses wheelchair. Patient attributes swelling and redness to his gout, he relates he has had gout for 27 years, relates to multiple acute gout attacked in the past. He has been started on prednisone for gout. He is on IV antibiotic therapy for the cellulitis. Patient was resting in bed, with no complaints, afebrile, and WBC normal. ESR and CRP are elevated. Uric acid normal. Past Medical History Past Medical History (Chronic Problems): Chronic Problems Stage III chronic kidney disease (Chronic) Type 2 diabetes mellitus (Chronic) Status post coronary artery bypass graft (Chronic) Coronary artery disease (Chronic) Hyperlipidemia (Chronic) Hypertension (Chronic) Allergies No Known Allergies Allergy (Verified 09/19/17 09:11) Home Medications: Ambulatory Orders Medication Instructions Recorded Aspirin 325 mg PO DAILY@0800 03/25/15 Furosemide 40 mg PO DAILY 03/25/15 Glimepiride 4 mg PO BID 03/25/15 Metformin [Metformin HCl] 500 mg PO BID 03/25/15 Allopurinol [Zyloprim] 300 mg PO DAILYCM #30 tablet 04/05/15 Atorvastatin Calcium [Lipitor] 40 mg PO QHS #30 tablet 04/05/15 Lisinopril [Zestril] 5 mg PO DAILY #30 tablet 04/05/15 Metoprolol Tartrate [Lopressor 100 mg PO BID #60 tablet 04/05/15 (beta dixon)] Pioglitazone [Actos] 45 mg PO DAILY 09/19/17 Surgical History: coronary bypass surgery, herniorrhaphy Psychiatric History: No pertinent psych hx Lives: Spouse/ Significant Other Smoking Status: Former smoker Alcohol: None Drugs: None - *Family History Maternal History Items: No pertinent history Paternal History Items: No pertinent history Review of Systems Constitutional: Denies: Chills, Fever, Malaise Gastrointestinal: Denies: Nausea, Vomiting Skin: Reports: Skin Changes, Wounds - Physical Exam General: Alert, Oriented x3, Cooperative, No apparent distress Extremities: Capillary Refill Less than 3 Seconds, Diminished Peripheral Pulses , - - Left foot with dorsal left foot ulceration measuring 2.4cm x 2.9cm and down to subcutaneous tissue layer prior to debridement with fibrotic nonviable tissue to base and margins, there is some maloder present, ulceration to the plantar left heel measuring 1.0cm x 1.0cm down to the fascia layer and with necrotic tissue to the base and margins prior to debridement, large ulceration to the posterior distal leg with fibrogranular base and serous drainage, there is a small ulceration to the anterior medial left ankle with fibrotic tissue as well, there ic cellulitis to the foot, ankle and to the leg with edema and increased temperature present; no open lesions to the right foot/ankle or leg, no cellulitis or drainage to the right foot/ankle/leg. CFT < 2 seconds to all toes bilateral. Pedal pulses nonpalpable bilateral, there is no evidence of acute ischemia to the foot or ankle bilateral. Sensation is significant diminished bilateral foot/ankle consistent with peripheral neuropathy. Toenails are chronicly thickened, and dystrophic bilateral. Motor function intact, however there is diffuse muscle weakness to the major muscle groups of the lower extremity. There is some pain on palpation to the plantar heel ulceration left foot, otherwise no other POP or pain on ROM to the foot or ankle bilateral. Musculoskeletal: No Tenderness to Palpation of Joints or Extremities - of the foot/ankle bilateral. Psych/Mental Status: Alert and oriented to time, place, person, mood and affect Vital Signs Temp Pulse Resp BP Pulse Ox 97.8 F 86 16 124/65 H 95 09/19/17 21:26 09/19/17 21:31 09/19/17 21:26 09/19/17 21:31 09/19/17 21:26 Oxygen Delivery Method Room Air Weight: 120 kg Body Mass Index (BMI) 40.2 Intake and Output for Last 24 Hours 09/17/17 09/18/17 09/19/17 23:59 23:59 23:59 Intake Total 974 / 974 Output Total 450 / 450 Balance 524 / 524 Microbiology Past 72 Hours 09/19/17 12:35 Gram Stain - Final Wound - Leg, Left Laboratory Tests Past 24 Hrs 09/19/17 09/19/17 09/19/17 12:35 12:35 13:25 RBC Folate Hemolysate Pending RBC Folate Pending Hematocrit Pending Urine Color Yellow Urine Clarity Clear Urine pH 5.0 Ur Specific [place] 1.020 Urine Protein 30 H Urine Glucose (UA) Normal Urine Ketones Negative Urine Occult Blood 250 H Urine Nitrite Negative Urine Bilirubin Negative Urine Urobilinogen Normal Ur Leukocyte Esterase 500 H Urine RBC 10-25 SEEN Urine WBC 25-50 SEEN Ur Squamous Epith Cells 0 SEEN Urine Bacteria 1+ Urine Mucus 0 SEEN S.aureus Protein A PCR POSITIVE H MRSA (PCR) Negative POC Glucose 09/19/17 09/19/17 09/19/17 21:29 16:53 12:38 POC Glucose 339 H 195 H 145 H 09/19/17 11:13 POC Glucose 46 L Assessment/Plan Cellulitis left lower extremity Left dorsal foot ulceration down to the subcutaneous tissue layer Left plantar heel ulceration with necrosis down to the fascia layer Left posterior leg ulceration down to the subcutaneous tissue layer Left anterior medial ankle ulceration down to the subcutaneous tissue layer Diabetes with peripheral neuropathy Peripheral Vascular Disease bilateral lower extremity History of Gout Reviewed findings and diagnostic data. Patient is on IV antibiotic therapy at this time - Vancomycin and Zosyn, wound culture has been obtained, and results pending. Left foot/ankle xrays reviewed, there is no clear evidence of osteomyelitis, there is soft tissue defect to the plantar heel consistent with deep ulceration which is present to that area, no gas seen. Given depth of ulceration to the plantar heel along with elevated ESR/CRP and cellulitis concern for possible osteomyelitis, will speak with medicine team regarding possible MRI for further evaluation. Otherwise there is no visible abscess; and recommend continuing with antibiotic therapy for associated cellulitis, local wound care, and follow culture results. Keep ulcerations offloaded at all times , no weight on left heel. Also concern for lower extremity arterial disease. Noninvasive lower extremity arterial studies were ordered for further evaluation. Ulcerations were debrided and dressings were applied as noted below. Podiatry will continue to follow, thank you for consultation. After obtaining patient consent, the ulceration dorsal left foot was debrided in excisional fashion using a 15 blade down to the subcutaneous tissue layer and the ulceration left plantar heel was debrided in excisional fashion using a 15 blade down to the fascia layer. Hemostasis was achieved with light pressure and gauze. No anesthesia was needed due to patient's neuropathy. Post debridement the left dorsal foot ulceration measured 2.5cm x 3.0cm and down to the subcutaneous tissue layer. Post debridement the left plantar heel ulceration measured 1.4cm x 1.5cm and down to the subcutaneous tissue layer.
[2017-09-20] VITALS (13 sets, daily range): BP systolic 106–136; BP diastolic 54–71; PULSE 57–93; RESP 16–24; TEMP 36.1–36.7; O2SAT 92–96
[2017-09-20 03:11] LABS: Bedside Glucose 354 mg/dL (70-110)
[2017-09-20] MEDS: Dextrose 5%/0.9% NaCl 1,000 ML 100 ML IV (05:48)
[2017-09-20] MEDS: Heparin Injection 5,000 UNITS/ML Syringe 5000 UNITS SC ×2 (05:50→14:06)
[2017-09-20 06:01] LABS: Bedside Glucose 370 mg/dL (70-110)
[2017-09-20 07:04] LABS: Absolute Lymphocyte Count 0.39 X10^3/ul (0.83-4.51); Absolute Neutrophil Count 6.6 X10^3/uL (2.0-7.7); Hematocrit 29.2 % (40-54); Hemoglobin 9.1 g/dl (13.0-16.5); Lymphocyte # 0.39 X10^3/ul (4.0); Lymphocyte % 5.5 % (19-41); Mean Corp Hgb Conc 31.2 g/gl (32-36); Mean Corpuscular Hgb 33.5 pg (27.0-32.0); Mean Corpuscular Volume 107.4 fL (80-94); Mean Platelet Vol. 10.7 fl (6.2-12.0); Monocyte# 0.02 X10^3/uL; Monocyte% 0.3 % (0-10); Neutrophil # 6.61 X10^3/uL (2.7-7.7); Neutrophil % 94.1 % (47-70); Platelet Count 193 K/mm3 (150-450); RBC Distribution Width CV 14.9 % (11.6-14.6); RBC Distribution Width SD 58.6 fl (35.1-43.9); Red Blood Count 2.72 M/mm3 (4.6-6.2)
[2017-09-20 07:14] LABS: Differential Indicated SCAN CRITERIA MET; POSITIVE COUNT NO; POSITIVE DIFFERENTIAL YES; POSITIVE MORPHOLOGY NO
[2017-09-20 07:26] LABS: Anisocytosis 2+; Differential Comment SCANNED; Macrocytosis 2+
[2017-09-20] MEDS: predniSONE 20 MG Tablet 60 MG PO (07:45)
[2017-09-20] MEDS: 0.9% Normal Saline 1,000 ML 75 ML IV ×2 (07:45→20:42)
[2017-09-20] MEDS: Aspirin 325 MG Tablet PO (07:46)
--- NOTE | 2017-09-20 07:51 | PCM.PROGNOTE ---
Subjective: Chief complaint: Follow-up after admission for left lower extremity cellulitis/infected left leg and left foot ulcers, acute kidney injury on top of stage III chronic kidney disease, anemia and hypoglycemia. Patient seen and examined. No acute events overnight. He still complaining of left flank pain, described as soreness, visiting yesterday he had bedside excisional debridement of the dorsum of the left foot ulcer as well as left plantar ulcer by virtual customer assistant yesterday. He denies fever chills. Denied chest pain or shortness of breath. Denied abdominal pain, nausea vomiting. His vital signs are stable. - Physical Exam General: Alert, Oriented x3, Cooperative, No apparent distress HEENT: Atraumatic, PERRLA, EOMI Oral: Moist Mucosa, No Gingival or Mucosal Lesions/ Ulcerations Neck: Supple, No JVD, Negative Carotid Bruits, Trachea Midline, Thyroid Normal Size and Texture Lungs: Clear to auscultation, No rhonchi, No wheeze, No rales, Diminished Cardiovascular: Regular rate, Regular Rhythm, Normal S1, Normal S2, PMI Normal Abdomen: Bowel Sounds Present, Soft, Non Tender, Non-Distended, No Hepato-splenomegaly, Obese Extremities: No clubbing, No cyanosis, Edema - ++ Edema. Skin: No rashes, Ulcer/ Wound, - - Left foot/leg: Erythema and swelling from just below the left knee down to the left foot. Dorsum of the left foot stage III skin ulcer. Posterior ulcer of the left leg stage III. Lymphatic: No Cervical, Supraclavicular, or Inguinal Adenopathy Neurological: Cranial nerves II-XII grossly intact, Motor Exam 5/5 strength throughout Psych/Mental Status: Normal Affect, Appropriate, Alert and oriented to time, place, person, mood and affect Vital Signs Temp Pulse Resp BP Pulse Ox 98.1 F 84 16 131/71 H 93 09/20/17 02:57 09/20/17 06:49 09/20/17 02:57 09/20/17 02:57 09/20/17 02:57 Oxygen Delivery Method Room Air Weight: 264 lb 8.875 oz Body Mass Index (BMI) 40.2 Intake and Output for Last 24 Hours 09/18/17 09/19/17 09/20/17 23:59 23:59 23:59 Intake Total 1503 / 1503 543 / 543 Output Total 925 / 925 300 / 300 Balance 578 / 578 243 / 243 Microbiology Past 72 Hours 09/19/17 12:35 Gram Stain - Final Wound - Leg, Left Laboratory Tests Past 24 Hrs 09/19/17 09/19/17 09/19/17 12:35 12:35 13:25 WBC RBC Hgb Hct MCV MCH MCHC RDW RDW Differential Plt Count MPV Immature Gran % (Auto) Neut % (Auto) Lymph % (Auto) [place] % (Auto) Eos % (Auto) Baso % (Auto) Absolute Neuts (auto) Absolute Lymphs (auto) Total Counted Differential Comment Anisocytosis Macrocytosis Sodium Potassium Chloride Carbon Dioxide Anion Gap BUN Creatinine Est GFR (MDRD) Af Amer Est GFR (MDRD) Non-Af BUN/Creatinine Ratio Glucose Calcium RBC Folate Hemolysate Pending RBC Folate Pending Hematocrit Pending Urine Color Yellow Urine Clarity Clear Urine pH 5.0 Ur Specific [place] 1.020 Urine Protein 30 H Urine Glucose (UA) Normal Urine Ketones Negative Urine Occult Blood 250 H Urine Nitrite Negative Urine Bilirubin Negative Urine Urobilinogen Normal Ur Leukocyte Esterase 500 H Urine RBC 10-25 SEEN Urine WBC 25-50 SEEN Ur Squamous Epith Cells 0 SEEN Urine Bacteria 1+ Urine Mucus 0 SEEN S.aureus Protein A PCR POSITIVE H MRSA (PCR) Negative 09/20/17 09/20/17 05:30 05:30 WBC 7.0 RBC 2.72 L Hgb 9.1 L Hct 29.2 L MCV 107.4 H MCH 33.5 H MCHC 31.2 L RDW 14.9 H RDW Differential 58.6 H Plt Count 193 MPV 10.7 Immature Gran % (Auto) 0.100 Neut % (Auto) 94.1 H Lymph % (Auto) 5.5 L [place] % (Auto) 0.3 Eos % (Auto) 0.0 Baso % (Auto) 0.0 Absolute Neuts (auto) 6.6 Absolute Lymphs (auto) 0.39 L Total Counted Not Reportable Differential Comment SCANNED Anisocytosis 2+ Macrocytosis 2+ Sodium Pending Potassium Pending Chloride Pending Carbon Dioxide Pending Anion Gap Pending BUN Pending Creatinine Pending Est GFR (MDRD) Af Amer Pending Est GFR (MDRD) Non-Af Pending BUN/Creatinine Ratio Pending Glucose Pending Calcium Pending RBC Folate Hemolysate RBC Folate Hematocrit Urine Color Urine Clarity Urine pH Ur Specific [place] Urine Protein Urine Glucose (UA) Urine Ketones Urine Occult Blood Urine Nitrite Urine Bilirubin Urine Urobilinogen Ur Leukocyte Esterase Urine RBC Urine WBC Ur Squamous Epith Cells Urine Bacteria Urine Mucus S.aureus Protein A PCR MRSA (PCR) POC Glucose 09/20/17 09/20/17 09/19/17 05:52 02:54 21:29 POC Glucose 370 H 354 H 339 H 09/19/17 09/19/17 09/19/17 16:53 12:38 11:13 POC Glucose 195 H 145 H 46 L Medical Necessity - Tobacco Use Smoking Status: Former smoker Assessment/Plan This is a 77 years old male patient presented to the emergency room because of left leg/left foot pain, swelling and erythema in context of history of recent flareup, found to have acute left lower extremity cellulitis with infected left leg/foot ulcers, acute kidney injury on top of stage III chronic kidney disease, hypoglycemia and anemia. #1 acute left lower extremity cellulitis/infected left leg/left foot stage III ulcers: Status post bedside excisional debridement that was done by podiatry medicine. He is on IV vancomycin and Zosyn. Blood and urine cultures are pending. Patient remained afebrile, no leukocytosis. X-ray of the left foot and left ankle reveals soft tissue swelling, no bony erosions. Podiatry medicine on the case, plan for MRI left leg and left foot to rule out osteomyelitis because of elevated ESR and C-reactive protein. #2 probable acute gouty arthritis of the left ankle/left foot: Uric acid is normal. Patient was started on prednisone yesterday. Left leg and left foot is diffusely red and erythematous, patient complained of left ankle pain. Plan as above. #3 acute kidney injury on top of stage III chronic kidney disease: He is on IV fluids, creatinine improved came down to 2.57. This is likely due to medication side effects including Lasix, metformin, glimepiride and allopurinol. Nephrotoxic medications held. Plan to repeat BMP tomorrow morning. #4 hypoglycemia: Patient has been on the 5% normal saline, sugar has been in the 300s. Plan to change fluids to normal saline at 75 cc/h, change sliding scale to medium dose, keep holding metformin, pioglitazone and restart glimepiride. #5 anemia: Seems to be combination of iron deficiency anemia as well as anemia of chronic disease. Serum iron and iron saturation are low, TIBC and serum ferritin are normal. Vitamin B12 and RBC folate are pending. Today's hemoglobin is 9.1 g/dL, remained stable. No indication for transfusion. Plan to start iron supplement. #6 CAD status post CABG: Stable, no acute issues. EKG reviewed, no acute ischemic changes. Continue aspirin and metoprolol, hold lisinopril because of acute kidney injury. #7 type 2 diabetes mellitus: Regular diet, Accu-Cheks every 4 hours, plan as above. #8 hypertension: Blood pressure stable, continue metoprolol, hold lisinopril. #9 hyperlipidemia: Continue statins. #10 DVT prophylaxis: Subcu heparin. This note was generated with [employer] dictation software. It may contain incorrect words, spelling, and punctuation that were not noted in checking the note before signing. Code Visit Inpatient E&M: 07367 Subs Hosp L2
--- NOTE | 2017-09-20 07:57 | PN_ITS ---
Subjective: Chief complaint: Follow-up after admission for left lower extremity cellulitis/ infected left leg and left foot ulcers, acute kidney injury on top of stage III chronic kidney disease, anemia and hypoglycemia. Patient seen and examined. No acute events overnight. He still complaining of left flank pain, described as soreness, visiting yesterday he had bedside excisional debridement of the dorsum of the left foot ulcer as well as left plantar ulcer by yard operator yesterday. He denies fever chills. Denied chest pain or shortness of breath. Denied abdominal pain, nausea vomiting. His vital signs are stable. - Physical Exam General: Alert, Oriented x3, Cooperative, No apparent distress HEENT: Atraumatic, PERRLA, EOMI Oral: Moist Mucosa, No Gingival or Mucosal Lesions/ Ulcerations Neck: Supple, No JVD, Negative Carotid Bruits, Trachea Midline, Thyroid Normal Size and Texture Lungs: Clear to auscultation, No rhonchi, No wheeze, No rales, Diminished Cardiovascular: Regular rate, Regular Rhythm, Normal S1, Normal S2, PMI Normal Abdomen: Bowel Sounds Present, Soft, Non Tender, Non-Distended, No Hepato- splenomegaly, Obese Extremities: No clubbing, No cyanosis, Edema - ++ Edema. Skin: No rashes, Ulcer/ Wound, - - Left foot/leg: Erythema and swelling from just below the left knee down to the left foot. Dorsum of the left foot stage III skin ulcer. Posterior ulcer of the left leg stage III. Lymphatic: No Cervical, Supraclavicular, or Inguinal Adenopathy Neurological: Cranial nerves II-XII grossly intact, Motor Exam 5/5 strength throughout Psych/Mental Status: Normal Affect, Appropriate, Alert and oriented to time, place, person, mood and affect Vital Signs Temp Pulse Resp BP Pulse Ox 98.1 F 84 16 131/71 H 93 09/20/17 02:57 09/20/17 06:49 09/20/17 02:57 09/20/17 02:57 09/20/17 02:57 Oxygen Delivery Method Room Air Weight: 264 lb 8.875 oz Body Mass Index (BMI) 40.2 Intake and Output for Last 24 Hours 09/18/17 09/19/17 09/20/17 23:59 23:59 23:59 Intake Total 1503 / 1503 543 / 543 Output Total 925 / 925 300 / 300 Balance 578 / 578 243 / 243 Microbiology Past 72 Hours 09/19/17 12:35 Gram Stain - Final Wound - Leg, Left Laboratory Tests Past 24 Hrs 09/19/17 09/19/17 09/19/17 12:35 12:35 13:25 WBC RBC Hgb Hct MCV MCH MCHC RDW RDW Differential Plt Count MPV Immature Gran % (Auto) Neut % (Auto) Lymph % (Auto) [place] % (Auto) Eos % (Auto) Baso % (Auto) Absolute Neuts (auto) Absolute Lymphs (auto) Total Counted Differential Comment Anisocytosis Macrocytosis Sodium Potassium Chloride Carbon Dioxide Anion Gap BUN Creatinine Est GFR (MDRD) Af Amer Est GFR (MDRD) Non-Af BUN/Creatinine Ratio Glucose Calcium RBC Folate Hemolysate Pending RBC Folate Pending Hematocrit Pending Urine Color Yellow Urine Clarity Clear Urine pH 5.0 Ur Specific [place] 1.020 Urine Protein 30 H Urine Glucose (UA) Normal Urine Ketones Negative Urine Occult Blood 250 H Urine Nitrite Negative Urine Bilirubin Negative Urine Urobilinogen Normal Ur Leukocyte Esterase 500 H Urine RBC 10-25 SEEN Urine WBC 25-50 SEEN Ur Squamous Epith Cells 0 SEEN Urine Bacteria 1+ Urine Mucus 0 SEEN S.aureus Protein A PCR POSITIVE H MRSA (PCR) Negative 09/20/17 09/20/17 05:30 05:30 WBC 7.0 RBC 2.72 L Hgb 9.1 L Hct 29.2 L MCV 107.4 H MCH 33.5 H MCHC 31.2 L RDW 14.9 H RDW Differential 58.6 H Plt Count 193 MPV 10.7 Immature Gran % (Auto) 0.100 Neut % (Auto) 94.1 H Lymph % (Auto) 5.5 L [place] % (Auto) 0.3 Eos % (Auto) 0.0 Baso % (Auto) 0.0 Absolute Neuts (auto) 6.6 Absolute Lymphs (auto) 0.39 L Total Counted Not Reportable Differential Comment SCANNED Anisocytosis 2+ Macrocytosis 2+ Sodium Pending Potassium Pending Chloride Pending Carbon Dioxide Pending Anion Gap Pending BUN Pending Creatinine Pending Est GFR (MDRD) Af Amer Pending Est GFR (MDRD) Non-Af Pending BUN/Creatinine Ratio Pending Glucose Pending Calcium Pending RBC Folate Hemolysate RBC Folate Hematocrit Urine Color Urine Clarity Urine pH Ur Specific [place] Urine Protein Urine Glucose (UA) Urine Ketones Urine Occult Blood Urine Nitrite Urine Bilirubin Urine Urobilinogen Ur Leukocyte Esterase Urine RBC Urine WBC Ur Squamous Epith Cells Urine Bacteria Urine Mucus S.aureus Protein A PCR MRSA (PCR) POC Glucose 09/20/17 09/20/17 09/19/17 05:52 02:54 21:29 POC Glucose 370 H 354 H 339 H 09/19/17 09/19/17 09/19/17 16:53 12:38 11:13 POC Glucose 195 H 145 H 46 L Medical Necessity - Tobacco Use Smoking Status: Former smoker Assessment/Plan This is a 77 years old male patient presented to the emergency room because of left leg/left foot pain, swelling and erythema in context of history of recent flareup, found to have acute left lower extremity cellulitis with infected left leg/foot ulcers, acute kidney injury on top of stage III chronic kidney disease , hypoglycemia and anemia. #1 acute left lower extremity cellulitis/infected left leg/left foot stage III ulcers: Status post bedside excisional debridement that was done by podiatry medicine. He is on IV vancomycin and Zosyn. Blood and urine cultures are pending. Patient remained afebrile, no leukocytosis. X-ray of the left foot and left ankle reveals soft tissue swelling, no bony erosions. Podiatry medicine on the case, plan for MRI left leg and left foot to rule out osteomyelitis because of elevated ESR and C-reactive protein. #2 probable acute gouty arthritis of the left ankle/left foot: Uric acid is normal. Patient was started on prednisone yesterday. Left leg and left foot is diffusely red and erythematous, patient complained of left ankle pain. Plan as above. #3 acute kidney injury on top of stage III chronic kidney disease: He is on IV fluids, creatinine improved came down to 2.57. This is likely due to medication side effects including Lasix, metformin, glimepiride and allopurinol. Nephrotoxic medications held. Plan to repeat BMP tomorrow morning. #4 hypoglycemia: Patient has been on the 5% normal saline, sugar has been in the 300s. Plan to change fluids to normal saline at 75 cc/h, change sliding scale to medium dose, keep holding metformin, pioglitazone and restart glimepiride. #5 anemia: Seems to be combination of iron deficiency anemia as well as anemia of chronic disease. Serum iron and iron saturation are low, TIBC and serum ferritin are normal. Vitamin B12 and RBC folate are pending. Today's hemoglobin is 9.1 g/dL, remained stable. No indication for transfusion. Plan to start iron supplement. #6 CAD status post CABG: Stable, no acute issues. EKG reviewed, no acute ischemic changes. Continue aspirin and metoprolol, hold lisinopril because of acute kidney injury. #7 type 2 diabetes mellitus: Regular diet, Accu-Cheks every 4 hours, plan as above. #8 hypertension: Blood pressure stable, continue metoprolol, hold lisinopril. #9 hyperlipidemia: Continue statins. #10 DVT prophylaxis: Subcu heparin. This note was generated with [employer] dictation software. It may contain incorrect words, spelling, and punctuation that were not noted in checking the note before signing. Code Visit Inpatient E&M: 12279 Subs Hosp L2
[2017-09-20 08:08] LABS: Anion Gap 12 (5-15); BUN 52 mg/dL (7-18); BUN/Creat Ratio 20.2 RATIO (10-20); Calcium,Total 8.1 mg/dL (8.5-10.1); Chloride 104 mmol/L (98-107); Creatinine, Serum 2.57 mg/dL (0.70-1.30); EST Glomerular Filtration Rate 26 mL/min (>60); Est Glom Filt Rate - Afr Amer 31 mL/min (>60); Estimated Creatinine Clearance 22.92 ml/min; Glucose 365 mg/dL (74-106); Sodium Level 135 mmol/L (136-145)
--- NOTE | 2017-09-20 08:43 | PN_ITS ---
Subjective: Patient seen this morning for follow up on left foot/ankle. Patient resting in bed with no complaints. No acute overnight events. - Physical Exam General: Alert, Oriented x3, Cooperative, No apparent distress Extremities: Capillary Refill Less than 3 Seconds, - - Left foot with dorsal left foot ulceration measuring 2.4cm x 2.9cm and down to subcutaneous tissue with fibrogranular base and viable margins, ulceration to the plantar left heel measuring 1.0cm x 1.0cm down to the fascia layer with viable margins and base ( resolved necrotic tissue), large ulceration to the posterior distal leg with fibrogranular base and viable margins, there is a small ulceration to the anterior medial left ankle with fibrotic tissue as well, there is resolving cellulitis to the foot, ankle and to the leg with edema and increased temperature present; ulcerations healing, CFT < 2 seconds to all toes bilateral. Pedal pulses nonpalpable bilateral, there is no evidence of acute ischemia to the foot or ankle bilateral. Sensation is significant diminished bilateral foot/ankle consistent with peripheral neuropathy. Toenails are chronicly thickened, and dystrophic bilateral. There is some pain on palpation to the plantar heel ulceration left foot, otherwise no other POP or pain on ROM to the foot or ankle bilateral. Vital Signs Temp Pulse Resp BP Pulse Ox 98.1 F 89 18 136/68 H 96 09/20/17 08:00 09/20/17 08:00 09/20/17 08:00 09/20/17 08:00 09/20/17 08:00 Oxygen Delivery Method Room Air Weight: 120 kg Body Mass Index (BMI) 40.2 Intake and Output for Last 24 Hours 09/18/17 09/19/17 09/20/17 23:59 23:59 23:59 Intake Total 1503 / 1503 543 / 543 Output Total 925 / 925 300 / 300 Balance 578 / 578 243 / 243 Microbiology Past 72 Hours 09/19/17 12:35 Gram Stain - Final Wound - Leg, Left Laboratory Tests Past 24 Hrs 09/19/17 09/19/17 09/19/17 12:35 12:35 13:25 WBC RBC Hgb Hct MCV MCH MCHC RDW RDW Differential Plt Count MPV Immature Gran % (Auto) Neut % (Auto) Lymph % (Auto) [place] % (Auto) Eos % (Auto) Baso % (Auto) Absolute Neuts (auto) Absolute Lymphs (auto) Total Counted Differential Comment Anisocytosis Macrocytosis Sodium Potassium Chloride Carbon Dioxide Anion Gap BUN Creatinine Estim Creat Clear Calc Est GFR (MDRD) Af Amer Est GFR (MDRD) Non-Af BUN/Creatinine Ratio Glucose Calcium RBC Folate Hemolysate Pending RBC Folate Pending Hematocrit Pending Urine Color Yellow Urine Clarity Clear Urine pH 5.0 Ur Specific [place] 1.020 Urine Protein 30 H Urine Glucose (UA) Normal Urine Ketones Negative Urine Occult Blood 250 H Urine Nitrite Negative Urine Bilirubin Negative Urine Urobilinogen Normal Ur Leukocyte Esterase 500 H Urine RBC 10-25 SEEN Urine WBC 25-50 SEEN Ur Squamous Epith Cells 0 SEEN Urine Bacteria 1+ Urine Mucus 0 SEEN S.aureus Protein A PCR POSITIVE H MRSA (PCR) Negative 09/20/17 09/20/17 05:30 05:30 WBC 7.0 RBC 2.72 L Hgb 9.1 L Hct 29.2 L MCV 107.4 H MCH 33.5 H MCHC 31.2 L RDW 14.9 H RDW Differential 58.6 H Plt Count 193 MPV 10.7 Immature Gran % (Auto) 0.100 Neut % (Auto) 94.1 H Lymph % (Auto) 5.5 L [place] % (Auto) 0.3 Eos % (Auto) 0.0 Baso % (Auto) 0.0 Absolute Neuts (auto) 6.6 Absolute Lymphs (auto) 0.39 L Total Counted Not Reportable Differential Comment SCANNED Anisocytosis 2+ Macrocytosis 2+ Sodium 135 L Potassium 5.0 Chloride 104 Carbon Dioxide 19.0 L Anion Gap 12 BUN 52 H Creatinine 2.57 H Estim Creat Clear Calc 22.92 Est GFR (MDRD) Af Amer 31 L Est GFR (MDRD) Non-Af 26 L BUN/Creatinine Ratio 20.2 H Glucose 365 H Calcium 8.1 L RBC Folate Hemolysate RBC Folate Hematocrit Urine Color Urine Clarity Urine pH Ur Specific [place] Urine Protein Urine Glucose (UA) Urine Ketones Urine Occult Blood Urine Nitrite Urine Bilirubin Urine Urobilinogen Ur Leukocyte Esterase Urine RBC Urine WBC Ur Squamous Epith Cells Urine Bacteria Urine Mucus S.aureus Protein A PCR MRSA (PCR) POC Glucose 09/20/17 09/20/17 09/19/17 05:52 02:54 21:29 POC Glucose 370 H 354 H 339 H 0309/19/17 09/19/17 16:53 12:38 11:13 POC Glucose 195 H 145 H 46 L Medical Necessity - Tobacco Use Smoking Status: Former smoker Assessment/Plan Cellulitis left lower extremity Left dorsal foot ulceration down to the subcutaneous tissue layer Left plantar heel ulceration with necrosis down to the fascia layer Left posterior leg ulceration down to the subcutaneous tissue layer Left anterior medial ankle ulceration down to the subcutaneous tissue layer Diabetes with peripheral neuropathy Peripheral Vascular Disease bilateral lower extremity History of Gout There has been clinical improvement. Patient is on IV antibiotic therapy at this time - Vancomycin and Zosyn, wound culture as well as blood cultures have been obtained, and results pending. Again left foot/ankle xrays reviewed, there is no clear evidence of osteomyelitis, there is soft tissue defect to the plantar heel consistent with deep ulceration which is present to that area, no gas seen. Given depth of ulceration to the plantar heel along with elevated ESR/ CRP and cellulitis concern for possible osteomyelitis, MRI ordered for further evaluation. Recommend continuing with antibiotic therapy for associated cellulitis, local wound care, and follow culture results. Keep ulcerations offloaded at all times, no weight on left heel. Also concern for lower extremity arterial disease. Noninvasive lower extremity arterial studies have been ordered for further evaluation. Dressing change completed: Wet to dry with Dakin's solution with gauze, kerlix, abd, and raymond dressing - change BID Discharge planning: Recommend home nursing for patient for dressing changes, and patient would benefit with follow up at wound center. Podiatry will continue to follow.
--- NOTE | 2017-09-20 09:03 | NURSING ---
PT & OT in room to attempt eval. Pt became agitated and refused to allow eval. Pt told therapy that once he gets into his house, he just sits in his chair and that's all he needs. Explained to pt the purpose and reasoning for eval. Pt still refused.
[2017-09-20] MEDS: Piperacil/Tazobactam 3.375 GM/50 ML ML IV ×3 (09:12→22:29)
[2017-09-20] MEDS: Metoprolol Tartrate 100 MG Tablet PO ×2 (09:13→22:30)
--- NOTE | 2017-09-20 10:12 | PCM.RX.CS ---
Consult Pharmacy has been consulted to manage selected antiobiotic: Vancomycin Type of Consult: New start Suspected Infection: Skin/Soft tissue Prior Doses of Antibiotics Received/Current Regimen: Vancomycin 2000 mg IV given on 09/19/17 at 15:00 Labs: Sodium 135 mmol/L (136-145) L 09/20/17 05:30 Potassium 5.0 mmol/L (3.5-5.1) 09/20/17 05:30 Chloride 104 mmol/L (98-107) 09/20/17 05:30 Carbon Dioxide 19.0 mmol/L (21.0-32.0) L 09/20/17 05:30 Anion Gap 12 (5-15) 09/20/17 05:30 BUN 52 mg/dL (7-18) H 09/20/17 05:30 Creatinine 2.57 mg/dL (0.70-1.30) H 09/20/17 05:30 Est GFR (MDRD) Af Amer 31 mL/min (>60) L 09/20/17 05:30 Est GFR (MDRD) Non-Af 26 mL/min (>60) L 09/20/17 05:30 BUN/Creatinine Ratio 20.2 RATIO (10-20) H 09/20/17 05:30 Glucose 365 mg/dL (74-106) H 09/20/17 05:30 Microbiology: Microbiology 09/19/17 12:35 Wound - Leg, Left Gram Stain - Final Weight used for dosin kg Estimated Creatinine Clearance: 22 Goal Trough: 10-15 mcg/mL Pharmacy Plan for Drug Dosing: Vancomycin 2000mg IV q48h which was started on 09/19/17 at 15:00. Pharmacy Service will continue to monitor and adjust dosing as required. Follow-Up Labs: Trough Vancomycin Labs to be done on [date and time ordered]: 09/23/17 at 14:30 before the dose at 15:00
[2017-09-20 10:56] LABS: Bedside Glucose 387 mg/dL (70-110)
[2017-09-20] MEDS: Glucerna Shake 120 ML LIQUID PO ×2 (11:30→17:05)
--- NOTE | 2017-09-20 14:12 | CASEMGMT ---
See attached assessment technician. Met face to face with patient earlier today. Denies anticipating any needs upon discharge. instructed that case management will remain available should any needs arise. Verb understanding. Gómez Billy RN, CCM.
[2017-09-20 14:21] LABS: Bedside Glucose 416 mg/dL (70-110)
[2017-09-20] MEDS: Ferrous Sulfate 325 MG Tablet PO (17:06)
[2017-09-20] MEDS: Glimepiride 4 MG Tablet PO (17:06)
[2017-09-20 17:16] LABS: Bedside Glucose 402 mg/dL (70-110)
[2017-09-20] MEDS: Atorvastatin Calcium 40 MG Tablet PO (22:30)
[2017-09-20 22:50] LABS: Bedside Glucose 312 mg/dL (70-110)
[2017-09-21] VITALS (12 sets, daily range): BP systolic 112–156; BP diastolic 60–75; PULSE 68–87; RESP 16–18; TEMP 36.2–36.9; O2SAT 93–97
[2017-09-21 04:36] LABS: Bedside Glucose 283 mg/dL (70-110)
[2017-09-21] MEDS: Piperacil/Tazobactam 3.375 GM/50 ML ML IV ×3 (05:32→22:16)
[2017-09-21 06:11] LABS: Absolute Lymphocyte Count 0.71 X10^3/ul (0.83-4.51); Absolute Neutrophil Count 11.6 X10^3/uL (2.0-7.7); Hemoglobin 8.6 g/dl (13.0-16.5); Lymphocyte # 0.71 X10^3/ul (4.0); Lymphocyte % 5.6 % (19-41); Mean Corp Hgb Conc 31.9 g/gl (32-36); Mean Corpuscular Hgb 34.3 pg (27.0-32.0); Mean Corpuscular Volume 107.6 fL (80-94); Mean Platelet Vol. 10.7 fl (6.2-12.0); Monocyte# 0.42 X10^3/uL; Monocyte% 3.3 % (0-10); Neutrophil # 11.56 X10^3/uL (2.7-7.7); Neutrophil % 90.9 % (47-70); Platelet Count 225 K/mm3 (150-450); RBC Distribution Width CV 14.2 % (11.6-14.6); RBC Distribution Width SD 54.9 fl (35.1-43.9); Red Blood Count 2.51 M/mm3 (4.6-6.2); White Blood Count 12.7 K/mm3 (4.4-11.0)
[2017-09-21 06:22] LABS: Anion Gap 10 (5-15); BUN 54 mg/dL (7-18); BUN/Creat Ratio 23.4 RATIO (10-20); Calcium,Total 8.3 mg/dL (8.5-10.1); Chloride 106 mmol/L (98-107); Creatinine, Serum 2.31 mg/dL (0.70-1.30); EST Glomerular Filtration Rate 29 mL/min (>60); Est Glom Filt Rate - Afr Amer 35 mL/min (>60); Glucose 215 mg/dL (74-106); POSITIVE COUNT NO; POSITIVE DIFFERENTIAL NO; POSITIVE MORPHOLOGY NO; Potassium 4.8 mmol/L (3.5-5.1); Sodium Level 135 mmol/L (136-145)
[2017-09-21 07:01] LABS: Bedside Glucose 222 mg/dL (70-110)
--- NOTE | 2017-09-21 07:53 | PN_ITS ---
Subjective: Chief complaint: Follow-up after admission for left lower extremity cellulitis/ infected left leg and left foot ulcers, acute kidney injury on top of stage III chronic kidney disease, anemia and hypoglycemia. Patient seen and examined. No acute events overnight. He denies any specific complaints. There is minimal soreness of the left leg, otherwise no complaints. Denies fever chills. Denied chest pain or shortness of breath. His vital signs are stable. - Physical Exam General: Alert, Oriented x3, Cooperative, No apparent distress HEENT: Atraumatic, PERRLA, EOMI Oral: Moist Mucosa, No Gingival or Mucosal Lesions/ Ulcerations Neck: Supple, No JVD, Negative Carotid Bruits, Trachea Midline, Thyroid Normal Size and Texture Lungs: Clear to auscultation, No rhonchi, No wheeze, No rales, Diminished Cardiovascular: Regular rate, Regular Rhythm, Normal S1, Normal S2, No murmurs Abdomen: Bowel Sounds Present, Soft, Non Tender, Non-Distended, Obese Extremities: No clubbing, No cyanosis, Edema - ++ Edema. Skin: No rashes, Ulcer/ Wound, - - Left foot/leg: Erythema and swelling from just below the left knee down to the left foot. Dorsum of the left foot stage III skin ulcer. Posterior ulcer of the left leg stage III. Lymphatic: No Cervical, Supraclavicular, or Inguinal Adenopathy Neurological: Cranial nerves II-XII grossly intact, Neuro grossly intact Psych/Mental Status: Normal Affect, Appropriate Vital Signs Temp Pulse Resp BP Pulse Ox 97.8 F 81 16 118/72 95 09/21/17 04:06 09/21/17 07:09 09/21/17 04:06 09/21/17 04:06 09/21/17 04:06 Oxygen Delivery Method Room Air Weight: 264 lb 8.875 oz Body Mass Index (BMI) 40.2 Intake and Output for Last 24 Hours 09/19/17 09/20/17 09/21/17 23:59 23:59 23:59 Intake Total 1503 / 1503 2775 / 2775 1154 / 1154 Output Total 925 / 925 950 / 950 250 / 250 Balance 578 / 578 1825 / 1825 904 / 904 Microbiology Past 72 Hours 09/19/17 12:35 Gram Stain - Final Wound - Leg, Left Wound Culture - Preliminary Beta hemolytic organism Laboratory Tests Past 24 Hrs 09/20/17 09/21/17 09/21/17 05:30 05:20 05:20 WBC 12.7 H RBC 2.51 L Hgb 8.6 L Hct 27.0 L MCV 107.6 H MCH 34.3 H MCHC 31.9 L RDW 14.2 RDW Differential 54.9 H Plt Count 225 MPV 10.7 Immature Gran % (Auto) 0.200 Neut % (Auto) 90.9 H Lymph % (Auto) 5.6 L [place] % (Auto) 3.3 Eos % (Auto) 0.0 Baso % (Auto) 0.0 Absolute Neuts (auto) 11.6 H Absolute Lymphs (auto) 0.71 L Total Counted Not Reportable Sodium 135 L 135 L Potassium 5.0 4.8 Chloride 104 106 Carbon Dioxide 19.0 L 19.0 L Anion Gap 12 10 BUN 52 H 54 H Creatinine 2.57 H 2.31 H Estim Creat Clear Calc 22.92 25.50 Est GFR (MDRD) Af Amer 31 L 35 L Est GFR (MDRD) Non-Af 26 L 29 L BUN/Creatinine Ratio 20.2 H 23.4 H Glucose 365 H 215 H Calcium 8.1 L 8.3 L POC Glucose 09/21/17 09/21/17 09/20/17 05:29 02:05 22:26 POC Glucose 222 H 283 H 312 H 09/20/17 09/20/17 09/20/17 17:04 14:04 10:47 POC Glucose 402 H 416 H 387 H Medical Necessity - Tobacco Use Smoking Status: Former smoker Assessment/Plan This is a 77 years old male patient presented to the emergency room because of left leg/left foot pain, swelling and erythema in context of history of recent flareup, found to have acute left lower extremity cellulitis with infected left leg/foot ulcers, acute kidney injury on top of stage III chronic kidney disease , hypoglycemia and anemia. #1 acute left lower extremity cellulitis/infected left leg/left foot stage III ulcers: Status post bedside excisional debridement that was done by podiatry medicine. He is on IV vancomycin and Zosyn. Wound culture revealed beta hemolytic organism, final is pending. Blood and urine cultures are pending. White blood cell count is slightly elevated today likely because of prednisone. X-ray of the left foot and left ankle reveals soft tissue swelling, no bony erosions. Plan for MRI left foot to rule out osteomyelitis and venous Doppler of the left leg to rule out DVT. #2 probable acute gouty arthritis of the left ankle/left foot: Uric acid is normal. He is on prednisone. Patient reported improvement of his left ankle pain. Plan to decrease prednisone to 40 mg p.o. daily. #3 acute kidney injury on top of stage III chronic kidney disease: He is on IV fluids, creatinine improved came down to 2.31, continued to improve slowly. This is likely due to medication side effects including Lasix, metformin, and allopurinol. Nephrotoxic medications held. #4 hypoglycemia: Blood sugar was elevated in the 300s-400s. D5% discontinued yesterday. He is back on glimepiride. Metformin and pioglitazone on hold. Plan to resume pioglitazone, keep holding metformin. #5 anemia: Seems to be combination of iron deficiency anemia as well as anemia of chronic disease. Serum iron and iron saturation are low, TIBC and serum ferritin are normal. Vitamin B12 and RBC folate are pending. Today's hemoglobin is 8.6 g/dL, remained stable. No indication for transfusion. He is on iron supplement. #6 CAD status post CABG: Stable, no acute issues. EKG reviewed, no acute ischemic changes. Continue aspirin and metoprolol, hold lisinopril because of acute kidney injury. #7 type 2 diabetes mellitus: Regular diet, Accu-Cheks every 4 hours, plan as above. #8 hypertension: Blood pressure stable, continue metoprolol, hold lisinopril. #9 hyperlipidemia: Continue statins. #10 DVT prophylaxis: Subcu heparin. This note was generated with [employer] dictation software. It may contain incorrect words, spelling, and punctuation that were not noted in checking the note before signing. Code Visit Inpatient E&M: 88209 Subs Hosp L2
[2017-09-21] MEDS: Glimepiride 4 MG Tablet PO ×2 (08:35→16:53)
[2017-09-21] MEDS: predniSONE 20 MG Tablet 40 MG PO (08:35)
[2017-09-21] MEDS: Aspirin 325 MG Tablet PO (08:35)
[2017-09-21] MEDS: Glucerna Shake 120 ML LIQUID PO ×3 (08:36→16:53)
[2017-09-21] MEDS: Ferrous Sulfate 325 MG Tablet PO ×2 (08:36→16:53)
--- NOTE | 2017-09-21 08:38 | MRI_ITS ---
STUDY: MRI LEFT HINDFOOT/MIDFOOT REASON FOR EXAM: Ulcerations of dorsal foot and plantar heel with cellulitis, pain and swelling. History of gout. TECHNIQUE: Standardized fat and water weighted pulse sequences were obtained in all 3 orthogonal planes. COMPARISON: Radiographs 09/19/2017. FINDINGS: Normal tibiotalar and posterior subtalar articulations. There is talonavicular arthrosis with small marginal osteophytes, chondral thinning (T1 sagittal 16) and a subchondral cyst of the proximal navicular. Normal calcaneocuboid articulation. Normal navicular-cuneiform articulations. Normal intercuneiform articulations. 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 There is no bone edema of the tarsal bones of the midfoot or hindfoot. Normal Lisfranc ligament. There is arthrosis of the first through fifth tarsometatarsal joints with chondral thinning (T1 sagittal images 12-24). There is no bone edema of the visualized metatarsals. There are osseous erosions of the first metatarsal head with adjacent tophi (T1 sagittal images 8-12). There is also a tophus adjacent to the fifth metatarsophalangeal joint (T1 sagittal image 28). There is a focal lesion of the medial tibialis anterior tendon at the level of the tibiotalar articulation (inversion recovery sagittal images 14-16; T2 coronal images 24-26) measuring 1.8 cm in length, suggestive of tophus. Normal extensor hallucis longus tendon. Normal extensor digitorum longus tendons. Normal peroneus longus tendon and distal insertion. Normal peroneus brevis tendon and distal insertion. There is atrophy with fat replacement of the intrinsic muscles of the visualized foot. There is edema in the subcutis adipose space without focal fluid collection to indicate soft tissue abscess. There is an ulcer of the heel. MRI/Lower Ext/No Jt/w/o IMPRESSION: Edema in the subcutis adipose space without demonstrated soft tissue abscess or osteomyelitis. 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 Talonavicular arthrosis and arthrosis of the first through fifth tarsometatarsal joints. 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 Atrophy of the intrinsic muscles of the foot suggestive of peripheral neuropathy. Electronically Signed: Richard Bunn MD at 10:35 EDT Tel , Service support ,
[2017-09-21 10:06] LABS: Vitamin B12 276 pg/mL (211-911)
--- NOTE | 2017-09-21 10:56 | CASEMGMT ---
SW spoke with patient and his , introduced self and role at [facility]. Discussed discharge options. They said the plan is home. Patient normally uses a walker at home. He said he is not allowed to walk right now as he cannot put weight on his foot. SW asked him if he is going to be able to manage at home with this restriction. They said they will be fine. SW told them SW will follow. Ladonna NG
[2017-09-21] MEDS: Metoprolol Tartrate 100 MG Tablet PO ×2 (11:18→22:15)
[2017-09-21] MEDS: 0.9% Normal Saline 1,000 ML 75 ML IV (11:25)
[2017-09-21 11:35] LABS: Bedside Glucose 225 mg/dL (70-110)
[2017-09-21] MEDS: oxyCODONE 5 MG Tablet PO (14:28)
[2017-09-21 15:16] LABS: Bedside Glucose 244 mg/dL (70-110)
--- NOTE | 2017-09-21 18:40 | LEAS ---
Arterial Study - Arterial Study Arterial Study: Bilateral lower extremity noninvasive arterial exam at rest Right lower extremity The right PT index is 1.08. The right DP index is not calculable due to artificially elevated systolic pressure greater than 254. The right digital index is 0.54. Doppler waveforms demonstrate triphasic flow at the right posterior tibial and biphasic flow at the dorsalis pedis. Volume pulse recordings do not demonstrate amplification at the calf ankle and digital waveforms are moderately depressed Left lower extremity The left PT and DP ankle-brachial indices are not calculable due to artificially elevated systolic pressures greater than 254. The left digital index is 0.5. The left posterior tibial and dorsalis pedis waveforms are biphasic. Volume pulse recordings do not demonstrate amplification at the calf. Ankle waveforms are moderately depressed. Digital waveforms are mildly depressed. Impression Findings are consistent with medial calcification of vessel white bilateral lower extremities making noninvasive interpretation less accurate. Digital indices are moderately depressed bilaterally consistent with at least moderate occlusive disease. While the right posterior tibial has a triphasic Doppler waveform the remainder of the waveforms are biphasic. Digital waveforms however are maintained bilaterally. The level of the occlusive disease cannot be determined bilaterally but findings would suggest likely multisegmental occlusive disease bilaterally. Findings would be at least consistent with moderate disease bilaterally Neville Valdez M.D., F.A.C.S.
[2017-09-21 18:45] LABS: Bedside Glucose 257 mg/dL (70-110)
--- NOTE | 2017-09-21 20:58 | PN_ITS ---
Subjective: This 77-year-old male was seen bedside for follow-up of left foot and leg ulcers. He is also being treated for cellulitis. He completed his foot MRI and his noninvasive vascular studies. He is very sleepy upon examination and reports he had a busy day. He denies leg or foot pain, fever, chill, nausea. - Physical Exam General: Oriented x3, Cooperative, Lethargic Extremities: No cyanosis, Capillary Refill Less than 3 Seconds, No Calf Tenderness - Negative Randi and Maier sign left, Diminished Peripheral Pulses, Edema - Bilateral lower extremities Skin: Ulcer/ Wound - No odor, no peripheral wound erythema or streaking, no purulence on expression, no vanessa necrosis. The plantar left heel ulcer probes very deep to the heel pad and not directly to bone. There is undermining at the site. The dorsal left foot ulcer is fibrous and superficial. The posterior left lower leg ulcer is pale granular base without exposed deep tissue., - - The skin is very atrophic and there is no hair present to bilateral lower extremities Musculoskeletal: No Tenderness to Palpation of Joints or Extremities, Muscle Wasting Neurological: - - Lack of epicritic sensation light touch bilateral lower extremities Psych/Mental Status: Normal Affect, Appropriate Vital Signs Temp Pulse Resp BP Pulse Ox 98.4 F 82 16 112/60 94 09/21/17 16:04 09/21/17 18:49 09/21/17 16:04 09/21/17 16:04 09/21/17 16:04 Oxygen Delivery Method Room Air Weight: 120 kg Body Mass Index (BMI) 40.2 Intake and Output for Last 24 Hours 09/19/17 09/20/17 09/21/17 23:59 23:59 23:59 Intake Total 1503 / 1503 2775 / 2775 3043 / 3043 Output Total 925 / 925 950 / 950 1000 / 1000 Balance 578 / 578 1825 / 1825 2043 / 2043 Microbiology Past 72 Hours 09/19/17 12:35 Gram Stain - Final Wound - Leg, Left Wound Culture - Preliminary Staphylococcus aureus GPC Poss Enterococcus sp Streptococcus group G 09/19/17 12:35 Urine Culture - Preliminary Urine, Clean Catch Culture exhibits no growth. 09/21/17 08:35 Stool Occult Blood (GORDO) - Final Stool Occult Blood Positive Laboratory Tests Past 24 Hrs 09/21/17 09/21/17 05:20 05:20 WBC 12.7 H RBC 2.51 L Hgb 8.6 L Hct 27.0 L MCV 107.6 H MCH 34.3 H MCHC 31.9 L RDW 14.2 RDW Differential 54.9 H Plt Count 225 MPV 10.7 Immature Gran % (Auto) 0.200 Neut % (Auto) 90.9 H Lymph % (Auto) 5.6 L [place] % (Auto) 3.3 Eos % (Auto) 0.0 Baso % (Auto) 0.0 Absolute Neuts (auto) 11.6 H Absolute Lymphs (auto) 0.71 L Total Counted Not Reportable Sodium 135 L Potassium 4.8 Chloride 106 Carbon Dioxide 19.0 L Anion Gap 10 BUN 54 H Creatinine 2.31 H Estim Creat Clear Calc 25.50 Est GFR (MDRD) Af Amer 35 L Est GFR (MDRD) Non-Af 29 L BUN/Creatinine Ratio 23.4 H Glucose 215 H Calcium 8.3 L POC Glucose 09/21/17 09/21/17 09/21/17 18:34 14:42 11:27 POC Glucose 257 H 244 H 225 H 09/21/17 09/21/17 09/20/17 05:29 02:05 22:26 POC Glucose 222 H 283 H 312 H Medical Necessity - Tobacco Use Smoking Status: Former smoker Assessment/Plan Cellulitis left lower extremity -resolving; no osteomyelitis suspected at this Left dorsal foot ulceration down to the subcutaneous tissue layer Left plantar heel ulceration with necrosis down to the fascia layer Left posterior leg ulceration down to the subcutaneous tissue layer Left anterior medial ankle ulceration down to the subcutaneous tissue layer Diabetes with peripheral neuropathy Peripheral Vascular Disease bilateral lower extremity History of Gout There has been continued clinical improvement. Patient is on IV antibiotic therapy at this time - Vancomycin and Zosyn, wound culture as well as blood cultures have been obtained, and results pending. Again left foot/ankle xrays reviewed, there is no clear evidence of osteomyelitis, there is soft tissue defect to the plantar heel consistent with deep ulceration which is present to that area, no gas seen. His imaging study, MRI obtained earlier today was reviewed and discussed. There is no drainable abscess or osteomyelitis identified at this time. I recommend continuing with antibiotic therapy for associated cellulitis, local wound care, and follow culture results. Keep ulcerations offloaded at all times, no weight on left heel. Infectious disease input is greatly appreciated. He understands he is at risk for limb loss. Also concern for lower extremity arterial disease. Noninvasive lower extremity arterial studies have been completed and reviewed. His findings are consistent with moderate vascular disease and multilevel disease is suspected. A vascular surgery consultation for the inpatient versus outpatient setting is recommended. Dressing change completed: Wet to dry with Betadine solution wicked gauze into the plantar left heel, Adaptic applied to other wounds, gauze, kerlix, abd, and raymond dressing. To change daily; a nursing order will be placed. To optimize healing by proper glycemic control and nutritional supplementation. Medical management and DVT prophylaxis per primary team. Discharge planning: Recommend home nursing for patient for dressing changes, and patient would benefit with follow up at wound center. Podiatry will continue to follow while in house. Nikole Hanson DPM [facility] [phone]
[2017-09-21] MEDS: Atorvastatin Calcium 40 MG Tablet PO (22:15)
[2017-09-21 22:31] LABS: Bedside Glucose 263 mg/dL (70-110)
[2017-09-22] VITALS (12 sets, daily range): BP systolic 114–155; BP diastolic 60–78; PULSE 73–95; RESP 16–18; TEMP 36.2–37; O2SAT 94–95
[2017-09-22] MEDS: 0.9% Normal Saline 1,000 ML 75 ML IV (00:30)
[2017-09-22 02:51] LABS: Bedside Glucose 230 mg/dL (70-110)
[2017-09-22] MEDS: Piperacil/Tazobactam 3.375 GM/50 ML ML IV ×3 (05:46→22:31)
[2017-09-22 06:41] LABS: Absolute Lymphocyte Count 1.13 X10^3/ul (0.83-4.51); Absolute Neutrophil Count 9.2 X10^3/uL (2.0-7.7); Hematocrit 26.1 % (40-54); Hemoglobin 8.3 g/dl (13.0-16.5); Lymphocyte # 1.13 X10^3/ul (4.0); Lymphocyte % 10.4 % (19-41); Mean Corp Hgb Conc 31.8 g/gl (32-36); Mean Corpuscular Hgb 34.6 pg (27.0-32.0); Mean Corpuscular Volume 108.8 fL (80-94); Mean Platelet Vol. 10.7 fl (6.2-12.0); Monocyte# 0.47 X10^3/uL; Monocyte% 4.3 % (0-10); Neutrophil # 9.22 X10^3/uL (2.7-7.7); POSITIVE COUNT NO; POSITIVE DIFFERENTIAL NO; POSITIVE MORPHOLOGY NO; Platelet Count 223 K/mm3 (150-450); RBC Distribution Width CV 14.3 % (11.6-14.6); RBC Distribution Width SD 54.6 fl (35.1-43.9); White Blood Count 10.9 K/mm3 (4.4-11.0)
[2017-09-22 06:58] LABS: Anion Gap 10 (5-15); BUN 57 mg/dL (7-18); BUN/Creat Ratio 29.2 RATIO (10-20); Calcium,Total 8.5 mg/dL (8.5-10.1); Chloride 110 mmol/L (98-107); Creatinine, Serum 1.95 mg/dL (0.70-1.30); EST Glomerular Filtration Rate 36 mL/min (>60); Est Glom Filt Rate - Afr Amer 43 mL/min (>60); Estimated Creatinine Clearance 30.21 ml/min; Glucose 183 mg/dL (74-106); Potassium 4.6 mmol/L (3.5-5.1); Sodium Level 139 mmol/L (136-145)
[2017-09-22 07:06] LABS: Bedside Glucose 172 mg/dL (70-110)
--- NOTE | 2017-09-22 09:50 | PCM.PROGNOTE ---
Subjective: Day #4 Patricia Patient is a 77-year-old male with a past medical history of type 2 diabetes mellitus, coronary artery disease (see status post CABG), chronic renal failure stage III, hyperlipidemia, gout and hypertension who presented to the emergency department at [facility] on 09/19/2017 complaining of swelling, redness and pain of the left fourth and left lower extremity. He had multiple ulcerations on the left foot and erythema extending to the tibial plateau. He was seen by Dr. Boykin and had bedside debridement. Non-invasive arterial studies on the LE's revealed at least moderate PVD. MRI of the left foot showed edema in the subcutis adipose space without demonstrated soft tissue abscess or osteomyelitis. There was a focal lesion in the tibialis anterior tendon suggestive of a tophus. There were erosive changes of the first metatarsal head with adjacent tophi. There was talonavicular arthrosis and arthrosis of the first through fifth tarsometatarsal joints. 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 ESR was 80 at admission and the CRP was 38. Serology from the wound drainage is positive for MSSA and negative for MRSA. He was started on prednisone for acute gouty arthritis and his blood sugars have been uncontrolled. Wound culture is still pending. Hemoccult stool is positive. He has been afebrile since admission. Vital signs are stable. Fluid balance is +[id number] since admission. Hemoglobin has dropped from 9.2-8.3 but I suspect at least a portion of this is due to hemodilution. Creatinine was 3.04 at admission and currently is 1.95. Creatinine on 09/14/2017 was 1.74. Cardiac catheterization in 2016 showed a left ventricular ejection fraction of 40%. The left main had severe distal disease. The LAD was totally occluded. The left circumflex artery was totally occluded. The RCA was totally occluded. The saphenous vein graft sequential to the diagonal vessel and circumflex artery was totally occluded. The saphenous vein graft to the right coronary artery was totally occluded. The left internal mammary artery to the left anterior descending artery was patent. Continued aggressive medical therapy was recommended and an AICD. He states the pain in his left foot is improved today. There is less swelling and less erythema of the left lower extremity. He denies any painful swallowing. Does tell me his stool was loose yesterday and he had 3-4 bowel movements yesterday. denies SOB but he is mostly in bed or in the chair and he does not sleep flat due to chronic back pain. - Physical Exam General: Alert, Oriented x3, Cooperative, No apparent distress, Well developed, Well nourished HEENT: Atraumatic, Normocephalic Oral: Moist Mucosa Neck: Negative Carotid Bruits, Trachea Midline Lungs: Diminished, Rales - in the bases, L>R, Wheezes - rare, - - He is not tachypneic, has no conversational dyspnea and has no accessory muscle use. Cardiovascular: Regular rate, Regular Rhythm, No murmurs, No rub noted, No Gallop, - - Telemetry shows normal sinus rhythm with no ectopy. Abdomen: Bowel Sounds Present, Non Tender, Non-Distended, Obese Extremities: No cyanosis, Diminished Peripheral Pulses, Edema Skin: Ulcer/ Wound - The wounds on the LLE are dry and the erythema is decreasing...minimal increased warmth to touch Musculoskeletal: No Muscle Wasting Psych/Mental Status: Normal Affect, Appropriate Vital Signs Temp Pulse Resp BP Pulse Ox 97.1 F L 82 16 114/67 95 09/22/17 04:01 09/22/17 07:36 09/22/17 04:01 09/22/17 04:01 09/22/17 04:01 Oxygen Delivery Method Room Air Weight: 264 lb 8.875 oz Body Mass Index (BMI) 40.2 Intake and Output for Last 24 Hours 09/20/17 09/21/17 09/22/17 23:59 23:59 23:59 Intake Total 2775 / 2775 3789 / 3789 473.9 / 473.9 Output Total 950 / 950 1275 / 1275 50 / 50 Balance 1825 / 1825 2514 / 2514 423.9 / 423.9 Microbiology Past 72 Hours 09/19/17 12:35 Gram Stain - Final Wound - Leg, Left Wound Culture - Preliminary Staphylococcus aureus Gram variable darcie Streptococcus group G 09/19/17 12:35 Urine Culture - Preliminary Urine, Clean Catch Culture exhibits no growth. 09/21/17 08:35 Stool Occult Blood (GORDO) - Final Stool Occult Blood Positive Laboratory Tests Past 24 Hrs 04/03/18 04/03/18 05:47 05:47 WBC 10.9 RBC 2.40 L Hgb 8.3 L Hct 26.1 L MCV 108.8 H MCH 34.6 H MCHC 31.8 L RDW 14.3 RDW Differential 54.6 H Plt Count 223 MPV 10.7 Immature Gran % (Auto) 0.300 Neut % (Auto) 85.0 H Lymph % (Auto) 10.4 L [place] % (Auto) 4.3 Eos % (Auto) 0.0 Baso % (Auto) 0.0 Absolute Neuts (auto) 9.2 H Absolute Lymphs (auto) 1.13 Total Counted Not Reportable Sodium 139 Potassium 4.6 Chloride 110 H Carbon Dioxide 19.0 L Anion Gap 10 BUN 57 H Creatinine 1.95 H Estim Creat Clear Calc 30.21 Est GFR (MDRD) Af Amer 43 L Est GFR (MDRD) Non-Af 36 L BUN/Creatinine Ratio 29.2 H Glucose 183 H Calcium 8.5 POC Glucose 09/22/17 09/22/17 09/21/17 05:42 01:31 21:58 POC Glucose 172 H 230 H 263 H 09/21/17 09/21/17 09/21/17 18:34 14:42 11:27 POC Glucose 257 H 244 H 225 H Medical Necessity - Tobacco Use Smoking Status: Former smoker Assessment/Plan impressions 1. Cellulitis of the LLE with ulcerations on the medial leg proximal to the ankle, the dorsum of the foot and the plantar surface over the heel. Currently on Zosyn and improving. 2. acute gouty arthritis - UA WNL. On Allopurinol. Suspect due to dietary indiscretion. Decrease the Prednisone to 20 mg daily. 3. DM II -well controlled, hemoglobin A1c 6.7% 4. Hemoccult positive stool with macrocytic anemia, TSH and B12 are within normal limits. 5. Acute renal failure on CRF stage III 6. Morbid obesity 7. PVD 8. CAD - S/P CABG 9. Hypertension 10. Hyperlipidemia 11. Ischemic cardiomyopathy with a left ventricular ejection fraction of 40% in 2016 continue the Zosyn consult Dr. Valdez for PVD. Pt has stage 3 CRF and would be at risk for acute renal failure if any dye....would need to consult nephrology prior to an angiogram Decrease the Prednisone to 20 mg daily Continue wound care - no tight compressive dressings Elevate the LLE when seated. DC the maintenance fluids and restart the Lasix Await the final culture on the GM variable darcie and the Group G strep to change the antibiotic Check a folate and a retic count
[2017-09-22 10:05] LABS: Bedside Glucose 202 mg/dL (70-110)
[2017-09-22] MEDS: Ferrous Sulfate 325 MG Tablet PO ×2 (10:53→17:39)
[2017-09-22] MEDS: Aspirin 325 MG Tablet PO (10:53)
[2017-09-22] MEDS: Glimepiride 4 MG Tablet PO ×2 (10:53→17:39)
[2017-09-22] MEDS: Pioglitazone Hydrochloride 45 MG Tablet PO (10:54)
[2017-09-22] MEDS: Metoprolol Tartrate 100 MG Tablet PO ×2 (10:55→22:32)
[2017-09-22] MEDS: predniSONE 20 MG Tablet PO (10:56)
[2017-09-22 11:25] LABS: Bedside Glucose 193 mg/dL (70-110)
--- NOTE | 2017-09-22 12:04 | NURSING ---
wound photo: left dorsal foot
--- NOTE | 2017-09-22 12:05 | NURSING ---
wound photo: left posterior/medial lower leg
--- NOTE | 2017-09-22 12:05 | NURSING ---
wound photo: left plantar heel
[2017-09-22 12:10] LABS: RET-HE 32.9 pg (30-35); Reticulocyte Count 1.22 % (0.5-1.5)
[2017-09-22 13:18] LABS: Phosphorus 2.7 mg/dL (2.5-4.9)
--- NOTE | 2017-09-22 13:22 | CASEMGMT ---
Patient participated in therapy today. He was an assist of 2 people to get up. SW spoke with patient's in the hallway and asked if she still felt patient would be fine for home. She said he will be fine. She said he is normally able to get himself up out of his chair with his walker. She said they will get him a lift chair and that would help a lot. SW told her SW is available should they change their minds. Plan: home as patient and his are declining SNF. Ladonna BULLOCK MSW
[2017-09-22] MEDS: Furosemide 40 MG/4 ML Vial IV (14:22)
[2017-09-22 16:09] LABS: Folate, Hemolysate Test 290.7 ng/mL (Not Estab.); Folate, RBC (Hct) Test 27.1 % (37.5-51.0)
[2017-09-22 16:19] LABS: Folates, RBC Test 1073 ng/mL (>498)
[2017-09-22 17:50] LABS: Bedside Glucose 203 mg/dL (70-110)
--- NOTE | 2017-09-22 19:28 | CON.PCM_ITS ---
Problem List (1) PAD (peripheral artery disease) Status: Acute Reason for Consult Date of Consultation: 09/22/17 History of Present Illness: The patient is a 77 year old M who has multiple significant medical comorbidities. He presents with cellulitis ulceration and arterial occlusive disease particularly of his left lower extremity. Dr. Summers has asked for a surgical consultation and electronic copy my surgical consult will be returned to her. The patient was admitted to the [facility] on August. Primary care physician is Dr. Kian Valdez, [facility]. The patient presented with acute left foot and leg swelling redness pain. He was found to have acute lower extremity cellulitis with infected foot ulcers with gout flare. In addition he has acute renal injury with stage III presentation. He also presents now with a chronic anemia. Dr. Boykin was consulted. He assisted with debriding the left foot ulcers. There was concern regarding the patient's left dorsal foot ulceration down to subcutaneous tissue. With the left plantar ulceration to the fascial level. Left posterior leg ulceration to the subcutaneous tissue. The left anterior medial ankle ulceration to the subcutaneous tissue. Wound cultures show Staphylococcus aureus insulin sensitive and Streptococcus group G and a gram variable darcie. An MRI shows edema but no abscess or osteomyelitis. There is atrophy of the intrinsic muscles of the foot suggestive of peripheral neuropathy. Venous duplex exam of the left lower extremity did not show acute deep vein thrombosis. Noninvasive arterial exam was limited due to the noncompressibility of vessels but was felt to be at least consistent with moderate occlusive disease bilaterally. Cardiac catheterization in 2016 showed a left ventricular ejection fraction of 40%. The left main had severe distal disease. The LAD was totally occluded. The left circumflex artery was totally occluded. The RCA was totally occluded. The saphenous vein graft sequential to the diagonal vessel and circumflex artery was totally occluded. The saphenous vein graft to the right coronary artery was totally occluded. The left internal mammary artery to the left anterior descending artery was patent. Continued aggressive medical therapy was recommended and an AICD. His laboratory of today shows a white count of 10.9 with a hemoglobin of 8.3 and hematocrit 26.1 and a platelet count of 223,000. MCV is elevated at 108 and MCH is 34.6 and MCHC is 31.8 reticulocyte count is 1.22. With an immature reticulocyte fraction of 18.5. BUN is currently 57 and creatinine 1.95. The patient however has received significant IV fluids. Current glucose is 203. Past Medical History Past Medical History (Chronic Problems): Chronic Problems Stage III chronic kidney disease (Chronic) Type 2 diabetes mellitus (Chronic) Status post coronary artery bypass graft (Chronic) Coronary artery disease (Chronic) Hyperlipidemia (Chronic) Hypertension (Chronic) Allergies No Known Allergies Allergy (Verified 09/19/17 09:11) Home Medications: Ambulatory Orders Medication Instructions Recorded Aspirin 325 mg PO DAILY@0800 03/25/15 Furosemide 40 mg PO DAILY 03/25/15 Glimepiride 4 mg PO BID 03/25/15 Metformin [Metformin HCl] 500 mg PO BID 03/25/15 Allopurinol [Zyloprim] 300 mg PO DAILYCM #30 tablet 04/05/15 Atorvastatin Calcium [Lipitor] 40 mg PO QHS #30 tablet 04/05/15 Lisinopril [Zestril] 5 mg PO DAILY #30 tablet 04/05/15 Metoprolol Tartrate [Lopressor 100 mg PO BID #60 tablet 04/05/15 (beta dixon)] Pioglitazone [Actos] 45 mg PO DAILY 09/19/17 Surgical History: coronary bypass surgery, herniorrhaphy Psychiatric History: No pertinent psych hx Lives: Spouse/ Significant Other Smoking Status: Former smoker Alcohol: None Drugs: None - *Family History Maternal History Items: No pertinent history Paternal History Items: No pertinent history Review of Systems Constitutional: Reports: Weakness. Denies: Anorexia HEENT: Denies: Difficulty Swallowing Cardiovascular: Reports: Chest Pain Respiratory: Reports: Shortness of breath at rest, Shortness of breath upon exertion Gastrointestinal: Denies: Abdominal Pain Genitourinary: Reports: Retention Musculoskeletal: Reports: - - Noted malodor from his left leg. Neurological: Reports: Balance problems Patient Problems: Active and Suspected Problems PAD (peripheral artery disease) (Acute) - Physical Exam General: Alert, Oriented x3, Cooperative, No apparent distress Oral: Moist Mucosa Neck: Negative Carotid Bruits Lungs: - - Diminished in the bases Cardiovascular: Regular rate, - - Bilateral carotids and brachials are 3+. Bilateral radials are diminished at 1+. Bilateral femorals difficult to palpate it 1-2+. Bilateral popliteals 2+. I cannot palpate either PT or DP pulse Abdomen: Bowel Sounds Present, - - Markedly overweight, marked amount of ecchymosis bilateral lower quadrants from needle injection sites Extremities: - - All extremities are significantly edematous. Bilateral lower extremities are markedly edematous and nonpitting. Dressings are in place to the left lower extremity I did not attempt removal at this time. Digits demonstrate chronic atrophy hair loss there is diminished capillary refill although there is some warmth and refill noted. Neurological: - - Initial light touch sensation to the feet Vital Signs Temp Pulse Resp BP Pulse Ox 98.3 F 83 18 145/78 H 95 09/22/17 15:57 09/22/17 15:57 09/22/17 15:57 09/22/17 15:57 09/22/17 15:57 Oxygen Delivery Method Room Air Weight: 264 lb 8.875 oz Body Mass Index (BMI) 40.2 Intake and Output for Last 24 Hours 09/20/17 09/21/17 09/22/17 23:59 23:59 23:59 Intake Total 2775 / 2775 3789 / 3789 1998.9 / 1998.9 Output Total 950 / 950 1275 / 1275 2100 / 2100 Balance 1825 / 1825 2514 / 2514 -101.1 / -101.1 Microbiology Past 72 Hours 09/19/17 12:35 Urine Culture - Final Urine, Clean Catch Culture exhibits no growth. 09/19/17 12:35 Gram Stain - Final Wound - Leg, Left Wound Culture - Preliminary Staphylococcus aureus Gram variable darcie Streptococcus group G 09/21/17 08:35 Stool Occult Blood (GORDO) - Final Stool Occult Blood Positive Laboratory Tests Past 24 Hrs 09/19/17 09/22/17 09/22/17 13:25 05:47 05:47 WBC 10.9 RBC 2.40 L Hgb 8.3 L Hct 26.1 L MCV 108.8 H MCH 34.6 H MCHC 31.8 L RDW 14.3 RDW Differential 54.6 H Plt Count 223 MPV 10.7 Immature Gran % (Auto) 0.300 Neut % (Auto) 85.0 H Lymph % (Auto) 10.4 L Calvert % (Auto) 4.3 Eos % (Auto) 0.0 Baso % (Auto) 0.0 Absolute Neuts (auto) 9.2 H Absolute Lymphs (auto) 1.13 Total Counted Not Reportable Immature Plt Fraction Retic Count Immature Retic Fraction Retic Hgb Equivalent Sodium 139 Potassium 4.6 Chloride 110 H Carbon Dioxide 19.0 L Anion Gap 10 BUN 57 H Creatinine 1.95 H Estim Creat Clear Calc 30.21 Est GFR (MDRD) Af Amer 43 L Est GFR (MDRD) Non-Af 36 L BUN/Creatinine Ratio 29.2 H Glucose 183 H Calcium 8.5 Phosphorus RBC Folate Hemolysate 290.7 RBC Folate 1073 Hematocrit 27.1 L 09/22/17 09/22/17 09/22/17 05:47 05:47 12:06 WBC RBC Hgb Hct MCV MCH MCHC RDW RDW Differential Plt Count MPV Immature Gran % (Auto) Neut % (Auto) Lymph % (Auto) Calvert % (Auto) Eos % (Auto) Baso % (Auto) Absolute Neuts (auto) Absolute Lymphs (auto) Total Counted Immature Plt Fraction 4.0 Retic Count 1.22 Immature Retic Fraction 18.50 H Retic Hgb Equivalent 32.9 Sodium Potassium Chloride Carbon Dioxide Anion Gap BUN Creatinine Estim Creat Clear Calc Est GFR (MDRD) Af Amer Est GFR (MDRD) Non-Af BUN/Creatinine Ratio Glucose Calcium Phosphorus 2.7 RBC Folate Hemolysate Pending RBC Folate Pending Hematocrit Pending POC Glucose 09/22/17 09/22/17 09/22/17 16:02 11:09 09:59 POC Glucose 203 H 193 H 202 H 09/22/17 09/22/17 09/21/17 05:42 01:31 21:58 POC Glucose 172 H 230 H 263 H Assessment/Plan Active and Suspected Problems PAD (peripheral artery disease) (Acute) Complex 77-year-old gentleman. He has a multitude of contributing factors to his lower extremity cellulitis and ulcerations. These include diabetes and obesity and peripheral neuropathy and gout and acute and chronic renal failure and marked anasarca and peripheral vascular occlusive disease and end-stage cardiac disease At this point I am not in favor of attempting endovascular treatment of his left lower extremity. I believe that imaging with carbon dioxide would be technically very challenging. The most remarkable finding that I know is his global anasarca. I believe that his wound healing being significantly compromise by the degree of his fluid retention. I have discussed with Dr. Summers and I think that a renal consult would be appropriate. The patient may actually need to have dialysis discussed with him. Even gaining vascular access for that will be challenging. I do not believe that I could further investigate his lower the arterial system with carbon dioxide alone and I believe that in his current state of health that any contrast would likely lead to further acute renal deterioration. The patient has had an opportunity to ask and have questions answered. He is agreeable to nephrology consultation. I appreciate the opportunity of assisting with his surgical care Neville Valdez M.D., F.A.C.S.
[2017-09-22] MEDS: Famotidine 20 MG Tablet PO (22:43)
[2017-09-22] MEDS: Atorvastatin Calcium 40 MG Tablet PO (22:43)
[2017-09-22 23:46] LABS: Bedside Glucose 274 mg/dL (70-110)
[2017-09-23] VITALS (11 sets, daily range): BP systolic 128–147; BP diastolic 63–72; PULSE 77–100; RESP 18–20; TEMP 36.1–36.8; O2SAT 94–97
[2017-09-23 03:31] LABS: Bedside Glucose 215 mg/dL (70-110)
[2017-09-23 05:53] LABS: Hematocrit 25.5 % (40-54)
[2017-09-23 06:13] LABS: Anion Gap 9 (5-15); BUN 61 mg/dL (7-18); BUN/Creat Ratio 34.1 RATIO (10-20); Calcium,Total 8.6 mg/dL (8.5-10.1); Chloride 111 mmol/L (98-107); Creatinine, Serum 1.79 mg/dL (0.70-1.30); EST Glomerular Filtration Rate 39 mL/min (>60); Est Glom Filt Rate - Afr Amer 47 mL/min (>60); Estimated Creatinine Clearance 32.91 ml/min; Glucose 160 mg/dL (74-106); Potassium 4.5 mmol/L (3.5-5.1); Sodium Level 140 mmol/L (136-145)
--- NOTE | 2017-09-23 06:21 | ECHOCS_ITS ---
Reason For Study: CHF Procedure This was a 2D Doppler, Color Flow transthoracic echocardiogram. The study was technically difficult. Ok to use Definity per Dr. Tran. Exam performed portable in patient room. Left Ventricle Moderately dilated left ventricle. The estimated ejection fraction is 40 %. Stage 2 diastolic dysfunction. There is moderate global hypokinesis of the left ventricle. Right Ventricle Moderately dilated right ventricle. Normal systolic function. Atria The left atrium is moderately enlarged. Normal right atrium. Normal atrial septum. Mitral Valve Mild diffuse mitral valve thickening. Moderate mitral annular calcification extending into the posterior leaflet. Mild (1+) mitral valve insufficiency. Tricuspid Valve Normal tricuspid valve. Mild (1+) tricuspid valve insufficiency. Right ventricular systolic pressure estimated to be 56 mmHg. Moderate pulmonary hypertension. Aortic Valve Trisinus/trileaflet aortic valve. Mild diffuse aortic valve thickening. Pulmonic Valve Normal pulmonic valve. Great Vessels Normal aortic root. Normal arch. The inferior vena cava is dilated. Pericardium/Pleural No pericardial effusion. Medication Definity0.5ml given slow IV push to enhance endocardial definition. MMode/2D Measurements & Calculations LVIDd: 5.6 cm IVSd: 1.1 cm Ao root diam: 3.3 cm LVIDs: 4.6 cm LVPWd: 1.1 cm LA dimension: 5.1 cm RVDd: 4.6 cm FS: 18.4 % LAV(MOD-bp): 78.3 ml LAV(MOD-bp) Indexed: 34.0 ml/m2 LA A4 area: 26.3 cm2 RA A4 area: 18.4 cm2 LAV(MOD-sp2): 66.8 ml LAV(MOD-sp4): 82.9 ml Time Measurements MV dec time: 0.13 sec Doppler Measurements & Calculations MV E max yohan: 121.9 cm/sec Lat Peak E' Yohan: 6.0 cm/sec Med Peak E' Yohan: 3.0 cm/sec MV A max yohan: 88.6 cm/sec E/E' lat: 20.3 E/E' med: 41.0 MV E/A: 1.4 MV V2 max: 152.6 cm/sec MV P1/2t max yohan: 145.7 cm/sec Ao V2 max: 182.4 cm/sec MV max P.3 mmHg MV P1/2t: 64.2 msec Ao max P.3 mmHg MV V2 mean: 89.2 cm/sec MV dec slope: 664.3 cm/sec2 Ao V2 mean: 137.0 cm/sec MV mean P.6 mmHg MVA(P1/2t): 3.4 cm2 Ao mean P.1 mmHg MV V2 VTI: 41.8 cm Ao V2 VTI: 39.0 cm LV V1 max: 111.7 cm/sec PA V2 max: 102.4 cm/sec TR max yohan: 354.9 cm/sec LV V1 max P.0 mmHg TR max P.4 mmHg LV V1 mean P.2 mmHg LV V1 mean: 86.2 cm/sec LV V1 VTI: 23.7 cm Interpretation Summary Moderately dilated left ventricle. The estimated ejection fraction is 40 %. Stage 2 diastolic dysfunction. There is moderate global hypokinesis of the left ventricle. Moderately dilated right ventricle. The left atrium is moderately enlarged. Mild (1+) mitral valve insufficiency. Right ventricular systolic pressure estimated to be 56 mmHg. Moderate pulmonary hypertension. The inferior vena cava is dilated Compared to echo report dated 03/26/2015, LV function has remained the same, RVSP has increased from 32 to 56 mm Hg. Ordering Physician: Dali Summers Referring Physician: Kian Valdez Performed By: No Meneses RDCS, RVT
[2017-09-23] MEDS: Piperacil/Tazobactam 3.375 GM/50 ML ML IV (06:36)
[2017-09-23] MEDS: Furosemide 100 MG/10 ML Vial 60 MG IV ×3 (06:41→23:09)
[2017-09-23 07:06] LABS: Bedside Glucose 134 mg/dL (70-110)
[2017-09-23] MEDS: Famotidine 20 MG Tablet PO ×2 (10:00→23:08)
[2017-09-23] MEDS: Aspirin 325 MG Tablet PO (10:00)
[2017-09-23] MEDS: Ferrous Sulfate 325 MG Tablet PO ×2 (10:00→17:35)
[2017-09-23] MEDS: Glimepiride 4 MG Tablet PO ×2 (10:01→17:35)
[2017-09-23] MEDS: predniSONE 20 MG Tablet PO (10:01)
[2017-09-23] MEDS: Pioglitazone Hydrochloride 45 MG Tablet PO (10:01)
[2017-09-23] MEDS: Metoprolol Tartrate 100 MG Tablet PO ×2 (10:11→23:09)
--- NOTE | 2017-09-23 10:14 | CASEMGMT ---
This RN CM to room to speak with pt/ regarding HHC at discharge. Pt/ refuse HHC at this time. Advised that if they change their mind at any point, to ask for CM, voices understanding. SStaten RN CM
--- NOTE | 2017-09-23 11:14 | CASEMGMT ---
Addendum entered by Rebecca Car 09/23/17 12:04: Call from Emy at [facility] and she states they are able to accept pt at this time and that HHC will be paid at 100%. Advised Emy that is teachable for dressing changes, voices understanding. Nohemi, floating operator, aware that pt to be set up with [facility], voices understanding. Pt/ updated on all at this time, voice understanding. Annette SANDOVAL CM Original Note: Addendum entered by Rebecca Car 09/23/17 11:43: This RN CM received call from Emy at [facility] and referral given to her for pt at this time. Emy states she will call this RN CM back when she knows whether or not they can accept pt for sure. Annette SANDOVAL CM Original Note: This RN CM received message from pt's requesting this RN CM call her on her cell phone in regards to HHC at this time. Call placed to at this time and she states that she and pt are now interested in HHC and would like to go with [facility], if they take their insurance. Call to Emy at [facility] and she states that she is on the other line and will call this RN CM back when able. Annette SANDOVAL CM
[2017-09-23 11:50] LABS: Bedside Glucose 196 mg/dL (70-110)
[2017-09-23] MEDS: 0.9% NaCl Peripheral Flush Adult/Peds IV (14:03)
--- NOTE | 2017-09-23 14:11 | PCM.PROGNOTE ---
Patient Problems: Active and Suspected Problems PAD (peripheral artery disease) (Acute) Subjective: Remains afebrile. Vital signs are stable. Urine output on 09/22/2017 was 3000 cc. He had an additional 2000 cc out since midnight. Lab was personally reviewed. Hemoglobin is 8.0 today despite diuresis. Electrolytes are stable. Creatinine is down to 1.79 from 3.04 at admission. The wound culture is positive for methicillin sensitive Staphylococcus aureus, Pasteurella Canis and group G strep. He until just recently had a dog at home. He tells me that he is urinating more since the Lasix has been increased. He has never seen a pig farm manager. I reviewed Dr. Valdez's input and appreciate his input. Denies CP, Lightheadedness - Physical Exam General: Alert, Oriented x3, Cooperative, No apparent distress HEENT: Atraumatic Oral: Moist Mucosa Neck: Supple Lungs: Rales - minimal in the bases only, no wheezig today Cardiovascular: Regular rate, Regular Rhythm, Normal S1, No rub noted, No Gallop Abdomen: Bowel Sounds Present, Soft, Non Tender, Non-Distended, Obese Extremities: Edema Skin: No rashes, - - will examione the wound in the AM when the dressing is changed Vital Signs Temp Pulse Resp BP Pulse Ox 97.6 F L 100 18 133/63 H 97 09/23/17 10:04 09/23/17 11:17 09/23/17 10:04 09/23/17 10:11 09/23/17 10:04 Oxygen Delivery Method Room Air Weight: 264 lb 8.875 oz Body Mass Index (BMI) 40.2 Intake and Output for Last 24 Hours 09/21/17 09/22/17 09/23/17 23:59 23:59 23:59 Intake Total 3789 / 3789 2080.4 / 2080.4 764.5 / 764.5 Output Total 1275 / 1275 3000 / 3000 1999 / 1999 Balance 2514 / 2514 -919.6 / -919.6 -1235.5 / -1235.5 Microbiology Past 72 Hours 09/23/17 08:45 C. difficile DNA Amplification - Final Stool 09/19/17 12:35 Gram Stain - Final Wound - Leg, Left Wound Culture - Final Staphylococcus aureus Pasteurella canis Streptococcus group G 09/19/17 12:35 Urine Culture - Final Urine, Clean Catch Culture exhibits no growth. 09/21/17 08:35 Stool Occult Blood (GORDO) - Final Stool Occult Blood Positive Laboratory Tests Past 24 Hrs 09/19/17 09/23/17 09/23/17 13:25 05:15 05:15 Hgb 8.0 L Hct 25.5 L Sodium 140 Potassium 4.5 Chloride 111 H Carbon Dioxide 20.0 L Anion Gap 9 BUN 61 H Creatinine 1.79 H Estim Creat Clear Calc 32.91 Est GFR (MDRD) Af Amer 47 L Est GFR (MDRD) Non-Af 39 L BUN/Creatinine Ratio 34.1 H Glucose 160 H Calcium 8.6 RBC Folate Hemolysate 290.7 RBC Folate 1073 Hematocrit 27.1 L POC Glucose 09/23/17 09/23/17 09/23/17 11:46 06:48 03:16 POC Glucose 196 H 134 H 215 H 09/22/17 09/22/17 22:27 16:02 POC Glucose 274 H 203 H Medical Necessity - Tobacco Use Smoking Status: Former smoker Assessment/Plan Active and Suspected Problems PAD (peripheral artery disease) (Acute) impressions 1. Cellulitis of the LLE with ulcerations on the medial leg proximal to the ankle, the dorsum of the foot and the plantar surface over the heel. transitioned to Rocephin today. MSSA, Pasturella and Group G strep 2. acute gouty arthritis - UA WNL. On Allopurinol. Suspect due to dietary indiscretion. Decrease the Prednisone to 20 mg daily. Denies ankle pain today. He does not have prednisone at home to start if he has a flare up. He does not follow a low purine diet. 3. DM II -well controlled, hemoglobin A1c 6.7% 4. Hemoccult positive stool with macrocytic anemia, TSH and B12 are within normal limits. The retic count is not elevated. 5. Acute renal failure on CRF stage III 6. Morbid obesity 7. PVD 8. CAD - S/P CABG 9. Hypertension 10. Hyperlipidemia 11. Ischemic cardiomyopathy with a left ventricular ejection fraction of 40% in 2016. Repeat ECHO this admission still with a 40% EF. He has stage 2 diastolic dysfunction, a moderately dilate RV with a RV pressure estimated at 56(previously 32) consistent with moderate Pulmonary HTN. THe IVC is dilated Continue Rocephin and local wound care Check a serum protein and urine protein electrophoresis Consult Dr. Monet Whyte from nephrology Lasix increased to 60 mg IV every 8 hours Continue subcutaneous heparin for DVT prophylaxis Recheck lab in the a.m. Ultrasound of the kidneys and bladder Consult the graves registration specialist to instruct in a low purine diet Will give him a RX at [place] for a small amount of prednisone to keep at home for gouty flares. He tells me they are infrequent.....he used to take Clinoril for flares but this was stopped 4 years ago....probably due to renal failure Need to look at his GI tract at some point since he is anemia and has heme + stool check iron studies Code Visit Inpatient E&M: 69784 Subs Hosp L2
--- NOTE | 2017-09-23 14:18 | PN_ITS ---
Patient Problems: Active and Suspected Problems PAD (peripheral artery disease) (Acute) Subjective: Remains afebrile. Vital signs are stable. Urine output on 09/22/2017 was 3000 cc. He had an additional 2000 cc out since midnight. Lab was personally reviewed. Hemoglobin is 8.0 today despite diuresis. Electrolytes are stable. Creatinine is down to 1.79 from 3.04 at admission. The wound culture is positive for methicillin sensitive Staphylococcus aureus, Pasteurella Canis and group G strep. He until just recently had a dog at home. He tells me that he is urinating more since the Lasix has been increased. He has never seen a activities counselor. I reviewed Dr. Valdez's input and appreciate his input. Denies CP, Lightheadedness - Physical Exam General: Alert, Oriented x3, Cooperative, No apparent distress HEENT: Atraumatic Oral: Moist Mucosa Neck: Supple Lungs: Rales - minimal in the bases only, no wheezig today Cardiovascular: Regular rate, Regular Rhythm, Normal S1, No rub noted, No Gallop Abdomen: Bowel Sounds Present, Soft, Non Tender, Non-Distended, Obese Extremities: Edema Skin: No rashes, - - will examione the wound in the AM when the dressing is changed Vital Signs Temp Pulse Resp BP Pulse Ox 97.6 F L 100 18 133/63 H 97 09/23/17 10:04 09/23/17 11:17 09/23/17 10:04 09/23/17 10:11 09/23/17 10:04 Oxygen Delivery Method Room Air Weight: 264 lb 8.875 oz Body Mass Index (BMI) 40.2 Intake and Output for Last 24 Hours 09/21/17 09/22/17 09/23/17 23:59 23:59 23:59 Intake Total 3789 / 3789 2080.4 / 2080.4 764.5 / 764.5 Output Total 1275 / 1275 3000 / 3000 1999 / 1999 Balance 2514 / 2514 -919.6 / -919.6 -1235.5 / -1235.5 Microbiology Past 72 Hours 09/23/17 08:45 C. difficile DNA Amplification - Final Stool 09/19/17 12:35 Gram Stain - Final Wound - Leg, Left Wound Culture - Final Staphylococcus aureus Pasteurella canis Streptococcus group G 09/19/17 12:35 Urine Culture - Final Urine, Clean Catch Culture exhibits no growth. 09/21/17 08:35 Stool Occult Blood (GORDO) - Final Stool Occult Blood Positive Laboratory Tests Past 24 Hrs 09/19/17 09/23/17 09/23/17 13:25 05:15 05:15 Hgb 8.0 L Hct 25.5 L Sodium 140 Potassium 4.5 Chloride 111 H Carbon Dioxide 20.0 L Anion Gap 9 BUN 61 H Creatinine 1.79 H Estim Creat Clear Calc 32.91 Est GFR (MDRD) Af Amer 47 L Est GFR (MDRD) Non-Af 39 L BUN/Creatinine Ratio 34.1 H Glucose 160 H Calcium 8.6 RBC Folate Hemolysate 290.7 RBC Folate 1073 Hematocrit 27.1 L POC Glucose 09/23/17 09/23/17 09/23/17 11:46 06:48 03:16 POC Glucose 196 H 134 H 215 H 09/22/17 09/22/17 22:27 16:02 POC Glucose 274 H 203 H Medical Necessity - Tobacco Use Smoking Status: Former smoker Assessment/Plan Active and Suspected Problems PAD (peripheral artery disease) (Acute) impressions 1. Cellulitis of the LLE with ulcerations on the medial leg proximal to the ankle, the dorsum of the foot and the plantar surface over the heel. transitioned to Rocephin today. MSSA, Pasturella and Group G strep 2. acute gouty arthritis - UA WNL. On Allopurinol. Suspect due to dietary indiscretion. Decrease the Prednisone to 20 mg daily. Denies ankle pain today. He does not have prednisone at home to start if he has a flare up. He does not follow a low purine diet. 3. DM II -well controlled, hemoglobin A1c 6.7% 4. Hemoccult positive stool with macrocytic anemia, TSH and B12 are within normal limits. The retic count is not elevated. 5. Acute renal failure on CRF stage III 6. Morbid obesity 7. PVD 8. CAD - S/P CABG 9. Hypertension 10. Hyperlipidemia 11. Ischemic cardiomyopathy with a left ventricular ejection fraction of 40% in 2016. Repeat ECHO this admission still with a 40% EF. He has stage 2 diastolic dysfunction, a moderately dilate RV with a RV pressure estimated at 56 (previously 32) consistent with moderate Pulmonary HTN. THe IVC is dilated Continue Rocephin and local wound care Check a serum protein and urine protein electrophoresis Consult Dr. Monet Whyte from nephrology Lasix increased to 60 mg IV every 8 hours Continue subcutaneous heparin for DVT prophylaxis Recheck lab in the a.m. Ultrasound of the kidneys and bladder Consult the continuous process tanner rotary drum to instruct in a low purine diet Will give him a RX at [place] for a small amount of prednisone to keep at home for gouty flares. He tells me they are infrequent.....he used to take Clinoril for flares but this was stopped 4 years ago....probably due to renal failure Need to look at his GI tract at some point since he is anemia and has heme + stool check iron studies Code Visit Inpatient E&M: 47325 Subs Hosp L2
--- NOTE | 2017-09-23 14:49 | CASEMGMT ---
Dressing supplies script signed by Dr. Summers and copy given to Emy from [facility] HHC at this time. Advised Emy to call in regards to HHC discussion, voices understanding. Annette SANDOVAL CM
[2017-09-23 16:09] LABS: Folate, Hemolysate Test 346.1 ng/mL (Not Estab.); Folate, RBC (Hct) Test 27.9 % (37.5-51.0)
[2017-09-23 17:21] LABS: Bedside Glucose 290 mg/dL (70-110)
[2017-09-23 21:32] LABS: Ferritin 101 ng/mL (26-388); Iron 68 ug/dL (65-175); Iron Binding Capacity,Total 307 ug/dL (250-450); PERCENT IRON SATURATION 22.1 % (15.0-55.0)
[2017-09-23] MEDS: Atorvastatin Calcium 40 MG Tablet PO (23:06)
[2017-09-23 23:25] LABS: Bedside Glucose 297 mg/dL (70-110)
[2017-09-24] VITALS (14 sets, daily range): BP systolic 114–137; BP diastolic 62–74; PULSE 76–104; RESP 16–20; TEMP 36.1–36.8; O2SAT 94–97
[2017-09-24 02:51] LABS: Bedside Glucose 212 mg/dL (70-110)
[2017-09-24] MEDS: Furosemide 100 MG/10 ML Vial 60 MG IV ×3 (05:32→22:21)
--- NOTE | 2017-09-24 05:55 | US_ITS ---
STUDY: RENAL ULTRASOUND - COMPLETE REASON FOR EXAM: Male, 77 years old. Renal insufficiency TECHNIQUE: Ultrasound evaluation of the kidneys was performed with real-time and static gage-scale imaging. COMPARISON: None available. FINDINGS: RIGHT KIDNEY: Normal location of the right kidney, which is normal in size. The right kidney measures 10.2 cm. There is a normal cortex of the right kidney. There is no right renal mass or cyst. There are no right renal calculi. There is no right hydronephrosis. DISTAL RIGHT URETER: There is non-visualization of the distal right ureter. There is no demonstrated right ureterovesical junction calculus. There is no demonstrated right ureteral jet. LEFT KIDNEY: Normal location of the left kidney, which is normal in size. The left kidney measures 11.3 cm. There is a normal cortex of the left kidney. There is no left renal mass or cyst. There are no left renal calculi. There is no left hydronephrosis. DISTAL LEFT URETER: There is non-visualization of the distal left ureter. There is no demonstrated left ureterovesical junction calculus. There is no demonstrated left ureteral jet. BLADDER: The bladder is underdistended due to the presence of a Sosa catheter and is not well evaluated. US/Kidney and Bladder IMPRESSION: Normal kidneys. No hydronephrosis. Electronically Signed: Иван Bowden, at 18:41 EDT Tel , Service support ,
[2017-09-24 06:29] LABS: Hematocrit 26.6 % (40-54); Hemoglobin 8.8 g/dl (13.0-16.5); Red Blood Count 2.52 M/mm3 (4.6-6.2); White Blood Count 10.7 K/mm3 (4.4-11.0)
[2017-09-24 06:30] LABS: Mean Corp Hgb Conc 33.1 g/gl (32-36); Mean Corpuscular Hgb 34.9 pg (27.0-32.0); Mean Corpuscular Volume 105.6 fL (80-94); Mean Platelet Vol. 9.6 fl (6.2-12.0); Platelet Count 229 K/mm3 (150-450); RBC Distribution Width SD 52.1 fl (35.1-43.9)
[2017-09-24 06:33] LABS: Scan Indicated on CBC? Y/N NO
[2017-09-24 07:05] LABS: Bedside Glucose 145 mg/dL (70-110)
[2017-09-24 07:07] LABS: Anion Gap 11 (5-15); BUN 63 mg/dL (7-18); Calcium,Total 8.4 mg/dL (8.5-10.1); Chloride 106 mmol/L (98-107); Creatinine, Serum 1.75 mg/dL (0.70-1.30); EST Glomerular Filtration Rate 40 mL/min (>60); Est Glom Filt Rate - Afr Amer 49 mL/min (>60); Estimated Creatinine Clearance 33.66 ml/min; Glucose 135 mg/dL (74-106); Phosphorus 2.4 mg/dL (2.5-4.9); Potassium 4.1 mmol/L (3.5-5.1); Sodium Level 141 mmol/L (136-145)
[2017-09-24] MEDS: Ferrous Sulfate 325 MG Tablet PO ×2 (08:07→16:47)
[2017-09-24] MEDS: predniSONE 20 MG Tablet PO (08:08)
[2017-09-24] MEDS: Aspirin 325 MG Tablet PO (08:08)
[2017-09-24] MEDS: Glimepiride 4 MG Tablet PO ×2 (08:08→16:47)
--- NOTE | 2017-09-24 09:26 | PN_ITS ---
Patient Problems: Active and Suspected Problems PAD (peripheral artery disease) (Acute) Subjective: This 77-year-old male with multiple comorbidities was seen bedside for resolving cellulitis and multiple left lower extremity ulcers. He denies fever , chill, nausea, vomiting. He is bedside with his family. The home health discharge triage nurse is also bedside and was reviewing his care plan and home set up. He is resting comfortably in his chair with Parker wraps in place to both legs. - Physical Exam General: Alert, Oriented x3, Cooperative Extremities: No cyanosis, Capillary Refill Less than 3 Seconds - All digits left foot, No Calf Tenderness - Negative Randi and Maier sign bilateral, Diminished Peripheral Pulses, Edema - +3 bilateral lower extremities, - - No pain with wound manipulation left lower extremity Skin: Ulcer/ Wound - No purulence, no odor, no necrosis left foot and leg ulcers. The cellulitis and streaking have resolved. The plantar heel ulcer measures 1.4 x 1.6 x 1.8 cm (pre-debridement 1.3 x 1.5 x 1.8 cm) with granular and fibrous tissue that is partially devitalized. There is no probing to bone. The dorsal left foot ulcer measures 3.8 x 2.8 x 0.1 cm (pre-debridement 3.7 x 2.7 x 0.1 cm) and is fibrous and moist. The left posterior leg ulcer is pale granular measures 5.2 x 7.5 x 0.1 cm (pre-debridement 5.1 x 7.4 x 0.1 cm). His skin is atrophic and hairless left Musculoskeletal: No Tenderness to Palpation of Joints or Extremities, Muscle Wasting, - - Active range of motion left foot toes Neurological: - - Lack of epicritic sensation light touch consistent with neuropathy Psych/Mental Status: Normal Affect, Appropriate Vital Signs Temp Pulse Resp BP Pulse Ox 97.8 F 78 18 128/74 H 95 09/24/17 04:00 09/24/17 06:56 09/24/17 04:00 09/24/17 04:00 09/24/17 04:00 Oxygen Delivery Method Room Air Weight: 120 kg Body Mass Index (BMI) 40.2 Intake and Output for Last 24 Hours 09/22/17 09/23/17 09/24/17 23:59 23:59 23:59 Intake Total 2080.4 / 2080.4 1314.5 / 1314.5 Output Total 3000 / 3000 6400 / 6400 1400 / 1400 Balance -919.6 / -919.6 -5085.5 / -5085.5 -1400 / -1400 Microbiology Past 72 Hours 09/23/17 08:45 C. difficile DNA Amplification - Final Stool 09/19/17 12:35 Gram Stain - Final Wound - Leg, Left Wound Culture - Final Staphylococcus aureus Pasteurella canis Streptococcus group G 09/19/17 12:35 Urine Culture - Final Urine, Clean Catch Culture exhibits no growth. 09/21/17 08:35 Stool Occult Blood (GORDO) - Final Stool Occult Blood Positive Laboratory Tests Past 24 Hrs 09/23/17 09/24/17 09/24/17 05:15 06:20 06:20 WBC 10.7 RBC 2.52 L Hgb 8.8 L Hct 26.6 L MCV 105.6 H MCH 34.9 H MCHC 33.1 RDW 14.0 RDW Differential 52.1 H Plt Count 229 MPV 9.6 Sodium Potassium Chloride Carbon Dioxide Anion Gap BUN Creatinine Estim Creat Clear Calc Est GFR (MDRD) Af Amer Est GFR (MDRD) Non-Af BUN/Creatinine Ratio Glucose Calcium Phosphorus Iron 68 TIBC 307 Iron Saturation 22.1 Ferritin 101 Total Protein (PEP) Pending Albumin (PEP) Pending Globulin (PEP) Pending Albumin/Globulin (PEP) Pending Nflft-9-Iahamhqwr Pending Gaunc-0-Oaqcyosef Pending Beta Globulins Pending Gamma Globulins Pending M-Ken Pending 09/24/17 06:20 WBC RBC Hgb Hct MCV MCH MCHC RDW RDW Differential Plt Count MPV Sodium 141 Potassium 4.1 Chloride 106 Carbon Dioxide 24.0 Anion Gap 11 BUN 63 H Creatinine 1.75 H Estim Creat Clear Calc 33.66 Est GFR (MDRD) Af Amer 49 L Est GFR (MDRD) Non-Af 40 L BUN/Creatinine Ratio 36.0 H Glucose 135 H Calcium 8.4 L Phosphorus 2.4 L Iron TIBC Iron Saturation Ferritin Total Protein (PEP) Albumin (PEP) Globulin (PEP) Albumin/Globulin (PEP) Jmhzr-2-Tpufovnxj Iofph-7-Mssqtgbzl Beta Globulins Gamma Globulins M-Ken POC Glucose 04/05/18 04/05/18 04/04/18 06:45 02:42 23:04 POC Glucose 145 H 212 H 297 H 09/23/17 09/23/17 17:12 11:46 POC Glucose 290 H 196 H Medical Necessity - Tobacco Use Smoking Status: Former smoker Assessment/Plan Active and Suspected Problems PAD (peripheral artery disease) (Acute) Cellulitis left lower extremity - resolved Left dorsal foot ulceration down to the subcutaneous tissue layer Left plantar heel ulceration with necrosis down to the fascia layer Left posterior leg ulceration down to the subcutaneous tissue layer Diabetes with peripheral neuropathy Peripheral Vascular Disease bilateral lower extremity Chronic kidney disease Other comorbidities I reviewed and discussed his case with his home health triage nurse, family, and patient. There has been continued clinical improvement. Subcutaneous debridement was performed with a 15 blade and he tolerated this well. Verbal consent was obtained and no local anesthetic was required due to his neuropathic state. Pressure was applied to maintain hemostasis and a dressing was immediately applied. To continue IV antibiotic therapy at this time - Rocephin. His previous wound cultures are reviewed. To complete course is advised; labs will be monitored. There is also a concern for lower extremity arterial disease. Vascular surgery consultation with Dr. Valdez is appreciated. No intervention is planned at this time. It is okay to discharge from a podiatry standpoint. I recommend he follows up the wound care center 1 week. Wound debridement was performed today. I recommend the following dressing change be completed: Wet to dry with Betadine solution wicked gauze into the plantar left heel, Adaptic applied to other wounds, gauze, kerlix, abd, and parker dressing. To optimize healing by proper glycemic control and nutritional supplementation. Medical management and DVT prophylaxis per primary team and kidney injury per nephrology. Nikole Hanson DPM [facility] [phone]
--- NOTE | 2017-09-24 09:26 | PCM.DC.POD ---
Weight Bearing Status: No weight bearing - left Keep extremity elevated above heart level: Left Leg Call your doctor if your incision/area has: Continuous Slow Oozing, Sudden Increased Bleeding, Increased Pain/ Swelling, Increased Redness, Foul Smelling Discharge, Swelling at the incision site Call your doctor if you observe: Fever of 101 or Higher, Coldness, Increased Pain, Calf discomfort, Uncontrolled pain Cleanse incision/area with: - - change left heel dressing daily with betadine wicked gauze, adaptic and to the dorsal foot and posterior leg ulcer sites. secure with gauze, kerlix, and raymond wraps. Allergies/Adverse Reactions: Allergies No Known Allergies Allergy (Verified 09/19/17 09:11) Medications to take at Discharge Aspirin 325 mg PO DAILY@0800 03/25/15 Furosemide 40 mg PO DAILY 03/25/15 Glimepiride 4 mg PO BID 03/25/15 Metformin [Metformin HCl] 500 mg PO BID 03/25/15 Allopurinol [Zyloprim] 300 mg PO DAILYCM #30 tablet 04/05/15 Atorvastatin Calcium [Lipitor] 40 mg PO QHS #30 tablet 04/05/15 Lisinopril [Zestril] 5 mg PO DAILY #30 tablet 04/05/15 Metoprolol Tartrate [Lopressor (beta dixon)] 100 mg PO BID #60 tablet 04/05/15 Pioglitazone [Actos] 45 mg PO DAILY 09/19/17 Primary Care Physician: Kian Valdez III, MD [Primary Care Provider] - Please Follow Up With: Nikole Hanson DPM When: 1 week at the wound healing center; call to confirm appointment time Proposed Discharge Date: 09/24/17
[2017-09-24] MEDS: Metoprolol Tartrate 100 MG Tablet PO ×2 (09:44→22:23)
[2017-09-24] MEDS: Famotidine 20 MG Tablet PO ×2 (09:44→22:24)
[2017-09-24] MEDS: Pioglitazone Hydrochloride 45 MG Tablet PO (09:44)
[2017-09-24] MEDS: 0.9% NaCl Peripheral Flush Adult/Peds IV ×2 (09:45→14:55)
[2017-09-24 09:51] LABS: Folates, RBC Test 1241 ng/mL (>498)
--- NOTE | 2017-09-24 11:21 | PCM.PROGNOTE ---
Patient Problems: Active and Suspected Problems PAD (peripheral artery disease) (Acute) Subjective: Afebrile since admission. Vital signs stable. 97% saturated on room air. Fluid balance is -2488 since admission. And output on 09/23/2017 was 6400. All lab was personally reviewed. White blood cell count today is 10.7. Hemoglobin is 8.8 up from 8.0 yesterday with diuresis. BUN is 63 today and the creatinine is 1.75, down from 3.04 on 09/19/2017. Phosphorus is mildly decreased at 2.4. Blood sugars reviewed. Metformin was discontinued at admission secondary to renal failure. He is currently on Amaryl 4 mg twice daily and Actos 45 mg daily. He is being covered with a sliding insulin scale. Denies shortness of breath. Denies lightheadedness, chest pain, nausea/vomiting. Denies lower extremity pain. Objective: - Physical Exam General: Alert, Oriented x3, Cooperative, No apparent distress HEENT: Atraumatic Oral: Moist Mucosa Neck: Supple Lungs: CTA today but diminished, rales have resolved Cardiovascular: Regular rate, Regular Rhythm, Normal S1, No rub noted, No Gallop Telemetry: Normal sinus rhythm with no significant ectopy Abdomen: Bowel Sounds Present, Soft, Non Tender, Non-Distended, Obese Extremities: Edema is improving.....less on the R because he has had YOSSI wrap on the RLE Skin: No rashes, The L heel ulcer was debrided by Dr. Hanson at the bedside today and it is bleeding the ulceration on the dorsum of the left foot has a very pale base and is nonhealing. No significant granulation tissue. - Physical Exam Vital Signs Temp Pulse Resp BP Pulse Ox 97 F L 95 18 127/68 H 97 09/24/17 09:42 09/24/17 09:44 09/24/17 09:42 09/24/17 09:44 09/24/17 09:42 Oxygen Delivery Method Room Air Weight: 264 lb 8.875 oz Body Mass Index (BMI) 40.2 Intake and Output for Last 24 Hours 09/22/17 09/23/17 09/24/17 23:59 23:59 23:59 Intake Total 2080.4 / 2080.4 1314.5 / 1314.5 Output Total 3000 / 3000 6400 / 6400 1400 / 1400 Balance -919.6 / -919.6 -5085.5 / -5085.5 -1400 / -1400 Microbiology Past 72 Hours 09/23/17 08:45 C. difficile DNA Amplification - Final Stool 09/19/17 12:35 Gram Stain - Final Wound - Leg, Left Wound Culture - Final Staphylococcus aureus Pasteurella canis Streptococcus group G 09/19/17 12:35 Urine Culture - Final Urine, Clean Catch Culture exhibits no growth. 09/21/17 08:35 Stool Occult Blood (GORDO) - Final Stool Occult Blood Positive Laboratory Tests Past 24 Hrs 09/22/17 09/23/17 09/24/17 12:06 05:15 06:20 WBC RBC Hgb Hct MCV MCH MCHC RDW RDW Differential Plt Count MPV Sodium Potassium Chloride Carbon Dioxide Anion Gap BUN Creatinine Estim Creat Clear Calc Est GFR (MDRD) Af Amer Est GFR (MDRD) Non-Af BUN/Creatinine Ratio Glucose Calcium Phosphorus Iron 68 TIBC 307 Iron Saturation 22.1 Ferritin 101 Total Protein (PEP) Pending Albumin (PEP) Pending Globulin (PEP) Pending Albumin/Globulin (PEP) Pending Aacwu-8-Qzdptwiln Pending Nlnzy-2-Dbdzozsrf Pending Beta Globulins Pending Gamma Globulins Pending M-Ken Pending RBC Folate Hemolysate 346.1 RBC Folate 1241 Hematocrit 27.9 L 09/24/17 09/24/17 06:20 06:20 WBC 10.7 RBC 2.52 L Hgb 8.8 L Hct 26.6 L MCV 105.6 H MCH 34.9 H MCHC 33.1 RDW 14.0 RDW Differential 52.1 H Plt Count 229 MPV 9.6 Sodium 141 Potassium 4.1 Chloride 106 Carbon Dioxide 24.0 Anion Gap 11 BUN 63 H Creatinine 1.75 H Estim Creat Clear Calc 33.66 Est GFR (MDRD) Af Amer 49 L Est GFR (MDRD) Non-Af 40 L BUN/Creatinine Ratio 36.0 H Glucose 135 H Calcium 8.4 L Phosphorus 2.4 L Iron TIBC Iron Saturation Ferritin Total Protein (PEP) Albumin (PEP) Globulin (PEP) Albumin/Globulin (PEP) Wyaap-1-Gmlfesejt Hlwop-9-Uzravedsk Beta Globulins Gamma Globulins M-Ken RBC Folate Hemolysate RBC Folate Hematocrit POC Glucose 09/24/17 09/24/17 09/23/17 06:45 02:42 23:04 POC Glucose 145 H 212 H 297 H 09/23/17 09/23/17 17:12 11:46 POC Glucose 290 H 196 H Medical Necessity - Tobacco Use Smoking Status: Former smoker Assessment/Plan Active and Suspected Problems PAD (peripheral artery disease) (Acute) impressions 1. Cellulitis of the LLE with ulcerations on the medial leg proximal to the ankle, the dorsum of the foot and the plantar surface over the heel. transitioned to Rocephin 09/23/17 MSSA, Pasturella and Group G strep 2. acute gouty arthritis - UA WNL. On Allopurinol. Suspect due to dietary indiscretion. Decrease the Prednisone to 20 mg daily. Denies ankle pain today. He does not have prednisone at home to start if he has a flare up. He does not follow a low purine diet. He has been seen by the sole leveling machine operator and he, his and his daughter have been instructed in a low purine diet. 3. DM II -mealtime BS's are high since Metformin was discontinued. He has never had insulin in the past. should no be on Metformin with Stage 3 CRF. Start Levemir at HS....DC the prednisone today. If the blood sugars remain elevated may need to start novolog at meals. 4. Hemoccult positive stool with macrocytic anemia, TSH and B12 are within normal limits. The retic count is not elevated. Iron studies are not consistent with iron deficiency. SPE and UPE are pending 5. Acute renal failure on CRF stage III - seen by Dr. Whyte and he will follow up with her post DC 6. Morbid obesity 7. PVD 8. CAD - S/P CABG 9. Hypertension 10. Hyperlipidemia 11. Ischemic cardiomyopathy with a left ventricular ejection fraction of 40% in 2016. Repeat ECHO this admission still with a 40% EF. He has stage 2 diastolic dysfunction, a moderately dilate RV with a RV pressure estimated at 56(previously 32) consistent with moderate Pulmonary HTN. THe IVC is dilated 12. Pulmonary hypertension - moderate continue to diurese Discussed with Dr. Pato COHEN the prednisone Continue the low purine diet YOSSI wraps to both LE's Recheck a renal profile in the AM Check an erythropoietin level Start Levemir nightly Continue Rocephin to complete 10 days of therapy Code Visit Inpatient E&M: 90929 Subs Hosp L2
--- NOTE | 2017-09-24 11:36 | PN_ITS ---
Patient Problems: Active and Suspected Problems PAD (peripheral artery disease) (Acute) Subjective: Afebrile since admission. Vital signs stable. 97% saturated on room air. Fluid balance is -2488 since admission. And output on 09/23/2017 was 6400. All lab was personally reviewed. White blood cell count today is 10.7. Hemoglobin is 8.8 up from 8.0 yesterday with diuresis. BUN is 63 today and the creatinine is 1.75, down from 3.04 on 09/19/2017. Phosphorus is mildly decreased at 2.4. Blood sugars reviewed. Metformin was discontinued at admission secondary to renal failure. He is currently on Amaryl 4 mg twice daily and Actos 45 mg daily. He is being covered with a sliding insulin scale. Denies shortness of breath. Denies lightheadedness, chest pain, nausea/ vomiting. Denies lower extremity pain. Objective: - Physical Exam General: Alert, Oriented x3, Cooperative, No apparent distress HEENT: Atraumatic Oral: Moist Mucosa Neck: Supple Lungs: CTA today but diminished, rales have resolved Cardiovascular: Regular rate, Regular Rhythm, Normal S1, No rub noted, No Gallop Telemetry: Normal sinus rhythm with no significant ectopy Abdomen: Bowel Sounds Present, Soft, Non Tender, Non-Distended, Obese Extremities: Edema is improving.....less on the R because he has had YOSSI wrap on the RLE Skin: No rashes, The L heel ulcer was debrided by Dr. Hanson at the bedside today and it is bleeding the ulceration on the dorsum of the left foot has a very pale base and is nonhealing. No significant granulation tissue. - Physical Exam Vital Signs Temp Pulse Resp BP Pulse Ox 97 F L 95 18 127/68 H 97 09/24/17 09:42 09/24/17 09:44 09/24/17 09:42 09/24/17 09:44 09/24/17 09:42 Oxygen Delivery Method Room Air Weight: 264 lb 8.875 oz Body Mass Index (BMI) 40.2 Intake and Output for Last 24 Hours 09/22/17 09/23/17 09/24/17 23:59 23:59 23:59 Intake Total 2080.4 / 2080.4 1314.5 / 1314.5 Output Total 3000 / 3000 6400 / 6400 1400 / 1400 Balance -919.6 / -919.6 -5085.5 / -5085.5 -1400 / -1400 Microbiology Past 72 Hours 09/23/17 08:45 C. difficile DNA Amplification - Final Stool 09/19/17 12:35 Gram Stain - Final Wound - Leg, Left Wound Culture - Final Staphylococcus aureus Pasteurella canis Streptococcus group G 09/19/17 12:35 Urine Culture - Final Urine, Clean Catch Culture exhibits no growth. 09/21/17 08:35 Stool Occult Blood (GORDO) - Final Stool Occult Blood Positive Laboratory Tests Past 24 Hrs 09/22/17 09/23/17 09/24/17 12:06 05:15 06:20 WBC RBC Hgb Hct MCV MCH MCHC RDW RDW Differential Plt Count MPV Sodium Potassium Chloride Carbon Dioxide Anion Gap BUN Creatinine Estim Creat Clear Calc Est GFR (MDRD) Af Amer Est GFR (MDRD) Non-Af BUN/Creatinine Ratio Glucose Calcium Phosphorus Iron 68 TIBC 307 Iron Saturation 22.1 Ferritin 101 Total Protein (PEP) Pending Albumin (PEP) Pending Globulin (PEP) Pending Albumin/Globulin (PEP) Pending Ercbh-8-Vuyjzkudx Pending Efysb-5-Dgjxbxyqh Pending Beta Globulins Pending Gamma Globulins Pending M-Ken Pending RBC Folate Hemolysate 346.1 RBC Folate 1241 Hematocrit 27.9 L 09/24/17 09/24/17 06:20 06:20 WBC 10.7 RBC 2.52 L Hgb 8.8 L Hct 26.6 L MCV 105.6 H MCH 34.9 H MCHC 33.1 RDW 14.0 RDW Differential 52.1 H Plt Count 229 MPV 9.6 Sodium 141 Potassium 4.1 Chloride 106 Carbon Dioxide 24.0 Anion Gap 11 BUN 63 H Creatinine 1.75 H Estim Creat Clear Calc 33.66 Est GFR (MDRD) Af Amer 49 L Est GFR (MDRD) Non-Af 40 L BUN/Creatinine Ratio 36.0 H Glucose 135 H Calcium 8.4 L Phosphorus 2.4 L Iron TIBC Iron Saturation Ferritin Total Protein (PEP) Albumin (PEP) Globulin (PEP) Albumin/Globulin (PEP) Alare-3-Pwvwqzqst Bmlja-8-Nbdldktvf Beta Globulins Gamma Globulins M-Ken RBC Folate Hemolysate RBC Folate Hematocrit POC Glucose 09/24/17 09/24/17 09/23/17 06:45 02:42 23:04 POC Glucose 145 H 212 H 297 H 09/23/17 09/23/17 17:12 11:46 POC Glucose 290 H 196 H Medical Necessity - Tobacco Use Smoking Status: Former smoker Assessment/Plan Active and Suspected Problems PAD (peripheral artery disease) (Acute) impressions 1. Cellulitis of the LLE with ulcerations on the medial leg proximal to the ankle, the dorsum of the foot and the plantar surface over the heel. transitioned to Rocephin 09/23/17 MSSA, Pasturella and Group G strep 2. acute gouty arthritis - UA WNL. On Allopurinol. Suspect due to dietary indiscretion. Decrease the Prednisone to 20 mg daily. Denies ankle pain today. He does not have prednisone at home to start if he has a flare up. He does not follow a low purine diet. He has been seen by the cattle brander and he, his and his daughter have been instructed in a low purine diet. 3. DM II -mealtime BS's are high since Metformin was discontinued. He has never had insulin in the past. should no be on Metformin with Stage 3 CRF. Start Levemir at HS....DC the prednisone today. If the blood sugars remain elevated may need to start novolog at meals. 4. Hemoccult positive stool with macrocytic anemia, TSH and B12 are within normal limits. The retic count is not elevated. Iron studies are not consistent with iron deficiency. SPE and UPE are pending 5. Acute renal failure on CRF stage III - seen by Dr. Whyte and he will follow up with her post DC 6. Morbid obesity 7. PVD 8. CAD - S/P CABG 9. Hypertension 10. Hyperlipidemia 11. Ischemic cardiomyopathy with a left ventricular ejection fraction of 40% in 2016. Repeat ECHO this admission still with a 40% EF. He has stage 2 diastolic dysfunction, a moderately dilate RV with a RV pressure estimated at 56 (previously 32) consistent with moderate Pulmonary HTN. THe IVC is dilated 12. Pulmonary hypertension - moderate continue to diurese Discussed with Dr. Pato COHEN the prednisone Continue the low purine diet YOSSI wraps to both LE's Recheck a renal profile in the AM Check an erythropoietin level Start Levemir nightly Continue Rocephin to complete 10 days of therapy Code Visit Inpatient E&M: 36205 Subs Hosp L2
[2017-09-24 12:06] LABS: Bedside Glucose 282 mg/dL (70-110)
--- NOTE | 2017-09-24 13:26 | PCM.CONS.R ---
Consultation - Renal 09/24/17 PCP/ Referring MD: Requesting physician: Dali Summers Primary care physician: Kian Valdez Reason for Consultation:: ALEJANDRO on CKD stage 3 - History of Present Illness History of Present Illness: The patient is a 77 year old obese M who presented to the emergency room for left foot/leg swelling, redness and pain past several days. He was started on IV antibiotic therapy for his cellulitis. Leukocytosis has been improving. The patient is poor, limited historian. He states the pain and redness started of as an acute on chronic gouty flare. Swelling and erythema worsened up the leg. He denies fever or chills. He mentioned that he has been getting gout flareups over the last 27 years. He had a history of type 2 diabetes mellitus and he has been on glimepiride, metformin and pioglitazone. His most recent hemoglobin A1c was few days ago and it was 6.7. He has CAD status post CABG stable without chest pain, SOB on aspirin, statins, beta blockers and YOSSI inhibitors. Consulted for acute renal failure. He has a baseline creatinine of 1.3-1.6 since 2014. Creatinine was 1.74 in August 2017. Creatinine on admission was 2.0 improved down to 1.75 today. His metformin and lisinopril were discontinued on admission. Urinalysis from September 19 showed trace proteinuria with specific gravity of 1.20. He had significant leg edema on admission that has improved with IV Lasix. He has good diuretic effect with this. He has been on Lasix at home, dose is unclear. Echocardiogram from September 23 showed LVEF of 40%. Had moderate pulmonary hypertension with RVSP of 56 mmHg along with moderately dilated right ventricle and left atrial enlargement. Denies any history of prostate problems. He did have trouble urinating over the weekend. Currently has a Alanis catheter in place with good urinary output. - Allergies Allergies: Allergies No Known Allergies Allergy (Verified 09/19/17 09:11) - Current Medications Current Medications: Current Medications Acetaminophen (Tylenol) 650 mg PO Q6H PRN PRN PRN Reason: Fever, headache, pain Aspirin (Aspirin) 325 mg PO DAILY@0800 [facility] Last Admin: 09/24/17 08:08 Dose: 325 mg Atorvastatin Calcium (Lipitor) 40 mg PO QHS [facility] Last Admin: 09/23/17 23:06 Dose: 40 mg Dextrose (D50w Syringe) 0 gm IV X1 PRN; Protocol PRN Reason: Hypoglycemia Famotidine (Pepcid) 20 mg PO BID [facility] Last Admin: 09/24/17 09:44 Dose: 20 mg [facility]ous S[facility] Last Admin: 09/24/17 08:07 Dose: 325 mg Furosemide (Lasix) 60 mg IV Q8 [facility] Last Admin: 09/24/17 05:32 Dose: 60 mg Glimepiride (Amaryl) [facility] Last Admin: 09/24/17 08:08 Dose: 4 mg Glucagon () 1 mg IM .X1 PRN PRN Reason: Hypoglycemia Heparin Sodium (Porcine) (Heparin Na) 5,000 unit SC Q8 [facility] Last Admin: 09/24/17 05:32 Dose: 5,000 u Ceftriaxone Sodium 2 gm/ (Sodium Chloride) 50 mls @ 100 mls/hr IV Q24 [facility] Last Admin: 09/24/17 09:45 Dose: 100 mls/hr Insulin Aspart (Novolog Flexpen (Bkc)) 0 units SC ACHS & 3AM [facility] PRN Reason: Protocol Last Admin: 09/24/17 12:06 Dose: 10 units Magnesium Hydroxide (Milk Of Magnesia) 30 ml PO DAILY PRN PRN PRN Reason: Constipation Metoprolol Tartrate (Lopressor (Beta Flaquito)) 100 mg PO BID [facility] Last Admin: 09/24/17 09:44 Dose: 100 mg Nutritional Formula (Rito - [place] Flavor) [facility] Last Admin: 09/24/17 08:07 Dose: 1 packet Ondansetron HCl (Zofran) 4 mg IV Q6H PRN PRN PRN Reason: NAUSEA/VOMITING Oxycodone HCl (Oxyir) 5 mg PO Q6H PRN PRN PRN Reason: SEVERE PAIN (6-10/10) Last Admin: 09/21/17 14:28 Dose: 5 mg Pioglitazone HCl (Actos) 45 mg PO DAILY [facility] Last Admin: 09/24/17 09:44 Dose: 45 mg Prednisone () 20 mg PO DAILY@0800 [facility] Last Admin: 09/24/17 08:08 Dose: 20 mg Sodium Chloride () 5 - 30 ml IV UD PRN PRN Reason: SALINE FLUSH Last Admin: 09/24/17 09:45 Dose: 10 ml - Past Medical History Past Medical History (Chronic Problems): Chronic Problems Stage III chronic kidney disease (Chronic) Type 2 diabetes mellitus (Chronic) Status post coronary artery bypass graft (Chronic) Coronary artery disease (Chronic) Hyperlipidemia (Chronic) Hypertension (Chronic) - Past Surgical History Surgical History: coronary bypass surgery, herniorrhaphy - Social History Smoking Status: Former smoker Alcohol: None Drugs: None - Family History Maternal History Items: No pertinent history Paternal History Items: No pertinent history Review of Systems Constitutional: Reports: Weakness, Fatigue. Denies: Anorexia, Chills, Fever Eyes: Denies: Blurred vision HEENT: Denies: Head Aches Cardiovascular: Reports: Edema. Denies: Chest Pain Respiratory: Denies: Cough, Shortness of Breath Gastrointestinal: Denies: Abdominal Pain, Constipation, Diarrhea, Nausea, Vomiting Genitourinary: Denies: Dysuria, Incontinence, Retention Patient Problems: Active and Suspected Problems PAD (peripheral artery disease) (Acute) - Physical Exam General: Alert, Oriented x3, Cooperative, - - Limited historian, family at bedside. Morbidly obese HEENT: PERRLA, EOMI Oral: Dry Mucosa Neck: Supple, No JVD Lungs: Clear to auscultation, Diminished Cardiovascular: Regular rate, No rub noted Abdomen: Bowel Sounds Present, Soft, Non Tender, Non-Distended, Obese Extremities: Edema, - - Legs wrapped Skin: - - This improved Musculoskeletal: No Muscle Wasting Lymphatic: No Cervical, Supraclavicular, or Inguinal Adenopathy Neurological: Cranial nerves II-XII grossly intact Psych/Mental Status: Normal Affect, Appropriate, Alert and oriented to time, place, person, mood and affect Vital Signs Temp Pulse Resp BP Pulse Ox 97 F L 81 18 127/68 H 97 09/24/17 09:42 09/24/17 12:54 09/24/17 09:42 09/24/17 09:44 09/24/17 09:42 Oxygen Delivery Method Room Air Weight: 120 kg Body Mass Index (BMI) 40.2 Intake and Output for Last 24 Hours 09/22/17 09/23/17 09/24/17 23:59 23:59 23:59 Intake Total 2080.4 / 2080.4 1314.5 / 1314.5 701 / 701 Output Total 3000 / 3000 6400 / 6400 2800 / 2800 Balance -919.6 / -919.6 -5085.5 / -5085.5 -2099 / -2099 Microbiology Past 72 Hours 09/23/17 08:45 C. difficile DNA Amplification - Final Stool 09/19/17 12:35 Gram Stain - Final Wound - Leg, Left Wound Culture - Final Staphylococcus aureus Pasteurella canis Streptococcus group G 09/19/17 12:35 Urine Culture - Final Urine, Clean Catch Culture exhibits no growth. Laboratory Tests Past 24 Hrs 09/22/17 09/23/17 09/24/17 12:06 05:15 06:20 WBC RBC Hgb Hct MCV MCH MCHC RDW RDW Differential Plt Count MPV Sodium Potassium Chloride Carbon Dioxide Anion Gap BUN Creatinine Estim Creat Clear Calc Est GFR (MDRD) Af Amer Est GFR (MDRD) Non-Af BUN/Creatinine Ratio Glucose Calcium Phosphorus Iron 68 TIBC 307 Iron Saturation 22.1 Ferritin 101 Total Protein (PEP) Pending Albumin (PEP) Pending Globulin (PEP) Pending Albumin/Globulin (PEP) Pending Yextf-3-Srayobbir Pending Imvnb-3-Gcqbswsow Pending Beta Globulins Pending Gamma Globulins Pending M-Ken Pending RBC Folate Hemolysate 346.1 RBC Folate 1241 Hematocrit 27.9 L 09/24/17 09/24/17 06:20 06:20 WBC 10.7 RBC 2.52 L Hgb 8.8 L Hct 26.6 L MCV 105.6 H MCH 34.9 H MCHC 33.1 RDW 14.0 RDW Differential 52.1 H Plt Count 229 MPV 9.6 Sodium 141 Potassium 4.1 Chloride 106 Carbon Dioxide 24.0 Anion Gap 11 BUN 63 H Creatinine 1.75 H Estim Creat Clear Calc 33.66 Est GFR (MDRD) Af Amer 49 L Est GFR (MDRD) Non-Af 40 L BUN/Creatinine Ratio 36.0 H Glucose 135 H Calcium 8.4 L Phosphorus 2.4 L Iron TIBC Iron Saturation Ferritin Total Protein (PEP) Albumin (PEP) Globulin (PEP) Albumin/Globulin (PEP) Pgwvr-3-Gphilkdxy Hxmxd-3-Eiatgyhag Beta Globulins Gamma Globulins M-Ken RBC Folate Hemolysate RBC Folate Hematocrit POC Glucose 09/24/17 09/24/17 09/24/17 11:50 06:45 02:42 POC Glucose 282 H 145 H 212 H 09/23/17 09/23/17 23:04 17:12 POC Glucose 297 H 290 H Clinical Impression(s) from Imaging Studies Ankle X-Ray 09/19/17 09:16 IMPRESSION: Soft tissue ulcer. No focal erosion. Arthritic change. Demineralization. Electronically Signed: Rupesh Carter MD at 10:17 EDT , Service support , Foot X-Ray 09/19/17 09:16 IMPRESSION: No focal erosion. Soft tissue lucency consistent with ulcer. Demineralization. Arthritic change. Electronically Signed: Rupesh Carter MD at 10:20 EDT , Service support , Lower Extremity MRI 09/21/17 08:38 IMPRESSION: Edema in the subcutis adipose space without demonstrated soft tissue abscess or osteomyelitis. 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 Talonavicular arthrosis and arthrosis of the first through fifth tarsometatarsal joints. 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 Atrophy of the intrinsic muscles of the foot suggestive of peripheral neuropathy. Electronically Signed: Richard Bunn MD at 10:35 EDT Tel , Service support , Assessment/Plan Active and Suspected Problems PAD (peripheral artery disease) (Acute) 1. Acute on CKD stage III. Creatinine at 3.04 with baseline creatinine 1.3 to 1.6 since 2015. Acute event likely due to prerenal event from acute gout, YOSSI inhibitor vs urinary retention. Likely has underlying diabetic nephropathy with trace proteinuria. Lisinopril was on hold due to worsening renal function. Agree with discontinuation of metformin for acute kidney injury. Had trouble urinating now with alanis to CD with good uop on iv lasix. Does not appear to have been on NSAIDs at home. No recent IV contrast exposure. Will need to watch for urinary retention after alanis removed. Avoid NSAIDs for gout 2. Cellulitis left lower extremity with foot ulcer. Cellulitis improved with IV antibiotic therapy. Blood cx no growth so far. 3. Diabetes mellitus type 2. 4. Hypertension with stable blood pressure 5. Morbid obesity 6. 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 Continue oral Lasix therapy 40 mg once a day to twice a day upon discharge. 7. Check renal ultrasound, spot urine protein creatinine ratio. 8. CAD status post CABG with ischemic cardiomyopathy EF [address] Valdez on consult. 10. Acute gouty attack. Check uric acid. 11. Anemia with adequate iron stores. Epo level ordered by primary service
--- NOTE | 2017-09-24 13:36 | CON.PCM_ITS ---
Consultation - Renal 09/24/17 PCP/ Referring MD: Requesting physician: Dali Summers Primary care physician: Kian Valdez Reason for Consultation:: ALEJANDRO on CKD stage 3 - History of Present Illness History of Present Illness: The patient is a 77 year old obese M who presented to the emergency room for left foot/leg swelling, redness and pain past several days. He was started on IV antibiotic therapy for his cellulitis. Leukocytosis has been improving. The patient is poor, limited historian. He states the pain and redness started of as an acute on chronic gouty flare. Swelling and erythema worsened up the leg. He denies fever or chills. He mentioned that he has been getting gout flareups over the last 27 years. He had a history of type 2 diabetes mellitus and he has been on glimepiride, metformin and pioglitazone. His most recent hemoglobin A1c was few days ago and it was 6.7. He has CAD status post CABG stable without chest pain, SOB on aspirin, statins, beta blockers and YOSSI inhibitors. Consulted for acute renal failure. He has a baseline creatinine of 1.3-1.6 since 2014. Creatinine was 1.74 in August 2017. Creatinine on admission was 2.0 improved down to 1.75 today. His metformin and lisinopril were discontinued on admission. Urinalysis from September 19 showed trace proteinuria with specific gravity of 1.20. He had significant leg edema on admission that has improved with IV Lasix. He has good diuretic effect with this. He has been on Lasix at home, dose is unclear. Echocardiogram from September 23 showed LVEF of 40%. Had moderate pulmonary hypertension with RVSP of 56 mmHg along with moderately dilated right ventricle and left atrial enlargement. Denies any history of prostate problems. He did have trouble urinating over the weekend. Currently has a Alanis catheter in place with good urinary output. - Allergies Allergies: Allergies No Known Allergies Allergy (Verified 09/19/17 09:11) - Current Medications Current Medications: Current Medications Acetaminophen (Tylenol) 650 mg PO Q6H PRN PRN PRN Reason: Fever, headache, pain Aspirin (Aspirin) 325 mg PO DAILY@0800 [facility] Last Admin: 09/24/17 08:08 Dose: 325 mg Atorvastatin Calcium (Lipitor) 40 mg PO QHS [facility] Last Admin: 09/23/17 23:06 Dose: 40 mg Dextrose (D50w Syringe) 0 gm IV X1 PRN; Protocol PRN Reason: Hypoglycemia Famotidine (Pepcid) 20 mg PO BID [facility] Last Admin: 09/24/17 09:44 Dose: 20 mg [facility] Admin: 09/24/17 08:07 Dose: 325 mg Furosemide (Lasix) 60 mg IV Q8 [facility] Last Admin: 09/24/17 05:32 Dose: 60 mg [facility]) [facility] Last Admin: 09/24/17 08:08 Dose: 4 mg Glucagon () 1 mg IM .X1 PRN PRN Reason: Hypoglycemia Heparin Sodium (Porcine) (Heparin Na) 5,000 unit SC Q8 [facility] Last Admin: 09/24/17 05:32 Dose: 5,000 u Ceftriaxone Sodium 2 gm/ (Sodium Chloride) 50 mls @ 100 mls/hr IV Q24 [facility] Last Admin: 09/24/17 09:45 Dose: 100 mls/hr Insulin Aspart (Novolog Flexpen (Bkc)) 0 units SC ACHS & 3AM [facility] PRN Reason: Protocol Last Admin: 09/24/17 12:06 Dose: 10 units Magnesium Hydroxide (Milk Of Magnesia) 30 ml PO DAILY PRN PRN PRN Reason: Constipation Metoprolol Tartrate (Lopressor (Beta Flaquito)) 100 mg PO BID [facility] Last Admin: 09/24/17 09:44 Dose: 100 mg Nutritional Formula (Rito - [place] Flavor) [facility] Last Admin: 09/24/17 08:07 Dose: 1 packet Ondansetron HCl (Zofran) 4 mg IV Q6H PRN PRN PRN Reason: NAUSEA/VOMITING Oxycodone HCl (Oxyir) 5 mg PO Q6H PRN PRN PRN Reason: SEVERE PAIN (6-10/10) Last Admin: 09/21/17 14:28 Dose: 5 mg Pioglitazone HCl (Actos) 45 mg PO DAILY [facility] Last Admin: 09/24/17 09:44 Dose: 45 mg Prednisone () 20 mg PO DAILY@0800 [facility] Last Admin: 09/24/17 08:08 Dose: 20 mg Sodium Chloride () 5 - 30 ml IV UD PRN PRN Reason: SALINE FLUSH Last Admin: 09/24/17 09:45 Dose: 10 ml - Past Medical History Past Medical History (Chronic Problems): Chronic Problems Stage III chronic kidney disease (Chronic) Type 2 diabetes mellitus (Chronic) Status post coronary artery bypass graft (Chronic) Coronary artery disease (Chronic) Hyperlipidemia (Chronic) Hypertension (Chronic) - Past Surgical History Surgical History: coronary bypass surgery, herniorrhaphy - Social History Smoking Status: Former smoker Alcohol: None Drugs: None - Family History Maternal History Items: No pertinent history Paternal History Items: No pertinent history Review of Systems Constitutional: Reports: Weakness, Fatigue. Denies: Anorexia, Chills, Fever Eyes: Denies: Blurred vision HEENT: Denies: Head Aches Cardiovascular: Reports: Edema. Denies: Chest Pain Respiratory: Denies: Cough, Shortness of Breath Gastrointestinal: Denies: Abdominal Pain, Constipation, Diarrhea, Nausea, Vomiting Genitourinary: Denies: Dysuria, Incontinence, Retention Patient Problems: Active and Suspected Problems PAD (peripheral artery disease) (Acute) - Physical Exam General: Alert, Oriented x3, Cooperative, - - Limited historian, family at bedside. Morbidly obese HEENT: PERRLA, EOMI Oral: Dry Mucosa Neck: Supple, No JVD Lungs: Clear to auscultation, Diminished Cardiovascular: Regular rate, No rub noted Abdomen: Bowel Sounds Present, Soft, Non Tender, Non-Distended, Obese Extremities: Edema, - - Legs wrapped Skin: - - This improved Musculoskeletal: No Muscle Wasting Lymphatic: No Cervical, Supraclavicular, or Inguinal Adenopathy Neurological: Cranial nerves II-XII grossly intact Psych/Mental Status: Normal Affect, Appropriate, Alert and oriented to time, place, person, mood and affect Vital Signs Temp Pulse Resp BP Pulse Ox 97 F L 81 18 127/68 H 97 09/24/17 09:42 09/24/17 12:54 09/24/17 09:42 09/24/17 09:44 09/24/17 09:42 Oxygen Delivery Method Room Air Weight: 120 kg Body Mass Index (BMI) 40.2 Intake and Output for Last 24 Hours 09/22/17 09/23/17 09/24/17 23:59 23:59 23:59 Intake Total 2080.4 / 2080.4 1314.5 / 1314.5 701 / 701 Output Total 3000 / 3000 6400 / 6400 2800 / 2800 Balance -919.6 / -919.6 -5085.5 / -5085.5 -2099 / -2099 Microbiology Past 72 Hours 09/23/17 08:45 C. difficile DNA Amplification - Final Stool 09/19/17 12:35 Gram Stain - Final Wound - Leg, Left Wound Culture - Final Staphylococcus aureus Pasteurella canis Streptococcus group G 09/19/17 12:35 Urine Culture - Final Urine, Clean Catch Culture exhibits no growth. Laboratory Tests Past 24 Hrs 09/22/17 09/23/17 09/24/17 12:06 05:15 06:20 WBC RBC Hgb Hct MCV MCH MCHC RDW RDW Differential Plt Count MPV Sodium Potassium Chloride Carbon Dioxide Anion Gap BUN Creatinine Estim Creat Clear Calc Est GFR (MDRD) Af Amer Est GFR (MDRD) Non-Af BUN/Creatinine Ratio Glucose Calcium Phosphorus Iron 68 TIBC 307 Iron Saturation 22.1 Ferritin 101 Total Protein (PEP) Pending Albumin (PEP) Pending Globulin (PEP) Pending Albumin/Globulin (PEP) Pending Wlukj-1-Bjhzeqsgy Pending Dqgpp-1-Mysyrcyah Pending Beta Globulins Pending Gamma Globulins Pending M-Ken Pending RBC Folate Hemolysate 346.1 RBC Folate 1241 Hematocrit 27.9 L 09/24/17 09/24/17 06:20 06:20 WBC 10.7 RBC 2.52 L Hgb 8.8 L Hct 26.6 L MCV 105.6 H MCH 34.9 H MCHC 33.1 RDW 14.0 RDW Differential 52.1 H Plt Count 229 MPV 9.6 Sodium 141 Potassium 4.1 Chloride 106 Carbon Dioxide 24.0 Anion Gap 11 BUN 63 H Creatinine 1.75 H Estim Creat Clear Calc 33.66 Est GFR (MDRD) Af Amer 49 L Est GFR (MDRD) Non-Af 40 L BUN/Creatinine Ratio 36.0 H Glucose 135 H Calcium 8.4 L Phosphorus 2.4 L Iron TIBC Iron Saturation Ferritin Total Protein (PEP) Albumin (PEP) Globulin (PEP) Albumin/Globulin (PEP) Bnjjq-5-Kbnhrznjp Tdemc-2-Qnulxmpgm Beta Globulins Gamma Globulins M-Ken RBC Folate Hemolysate RBC Folate Hematocrit POC Glucose 09/24/17 09/24/17 09/24/17 11:50 06:45 02:42 POC Glucose 282 H 145 H 212 H 09/23/17 09/23/17 23:04 17:12 POC Glucose 297 H 290 H Clinical Impression(s) from Imaging Studies Ankle X-Ray 09/19/17 09:16 IMPRESSION: Soft tissue ulcer. No focal erosion. Arthritic change. Demineralization. Electronically Signed: Rupesh Carter MD at 10:17 EDT , Service support , Foot X-Ray 09/19/17 09:16 IMPRESSION: No focal erosion. Soft tissue lucency consistent with ulcer. Demineralization. Arthritic change. Electronically Signed: Rupesh Carter MD at 10:20 EDT , Service support , Lower Extremity MRI 09/21/17 08:38 IMPRESSION: Edema in the subcutis adipose space without demonstrated soft tissue abscess or osteomyelitis. 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 Talonavicular arthrosis and arthrosis of the first through fifth tarsometatarsal joints. 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 Atrophy of the intrinsic muscles of the foot suggestive of peripheral neuropathy. Electronically Signed: Richard Bunn MD at 10:35 EDT Tel , Service support , Assessment/Plan Active and Suspected Problems PAD (peripheral artery disease) (Acute) 1. Acute on CKD stage III. Creatinine at 3.04 with baseline creatinine 1.3 to 1.6 since 2015. Acute event likely due to prerenal event from acute gout, YOSSI inhibitor vs urinary retention. Likely has underlying diabetic nephropathy with trace proteinuria. Lisinopril was on hold due to worsening renal function. Agree with discontinuation of metformin for acute kidney injury. Had trouble urinating now with alanis to CD with good uop on iv lasix. Does not appear to have been on NSAIDs at home. No recent IV contrast exposure. Will need to watch for urinary retention after alanis removed. Avoid NSAIDs for gout 2. Cellulitis left lower extremity with foot ulcer. Cellulitis improved with IV antibiotic therapy. Blood cx no growth so far. 3. Diabetes mellitus type 2. 4. Hypertension with stable blood pressure 5. Morbid obesity 6. 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 Continue oral Lasix therapy 40 mg once a day to twice a day upon discharge. 7. Check renal ultrasound, spot urine protein creatinine ratio. 8. CAD status post CABG with ischemic cardiomyopathy EF [address] Valdez on consult. 10. Acute gouty attack. Check uric acid. 11. Anemia with adequate iron stores. Epo level ordered by primary service
[2017-09-24 16:40] LABS: Bedside Glucose 289 mg/dL (70-110)
[2017-09-24 18:07] LABS: Protein, Urine (Random) < 6.0 mg/dL (<11.9)
[2017-09-24 18:08] LABS: Creatinine, Urine (random) < 13.00 mg/dL (NO RANGE EST.)
[2017-09-24] MEDS: Atorvastatin Calcium 40 MG Tablet PO (22:23)
[2017-09-24 22:36] LABS: Bedside Glucose 335 mg/dL (70-110)
[2017-09-25] VITALS (12 sets, daily range): BP systolic 122–143; BP diastolic 62–72; PULSE 80–94; RESP 18–20; TEMP 36.5–36.8; O2SAT 94–97
[2017-09-25 04:01] LABS: Bedside Glucose 189 mg/dL (70-110)
[2017-09-25 06:04] LABS: Albumin, Serum 2.6 g/dL (3.2-5.0); BUN 64 mg/dL (7-18); BUN/Creat Ratio 39.5 RATIO (10-20); Calcium,Total 8.7 mg/dL (8.5-10.1); Chloride 103 mmol/L (98-107); Creatinine, Serum 1.62 mg/dL (0.70-1.30); EST Glomerular Filtration Rate 44 mL/min (>60); Est Glom Filt Rate - Afr Amer 53 mL/min (>60); Estimated Creatinine Clearance 36.36 ml/min; Glucose 175 mg/dL (74-106); Phosphorus 2.6 mg/dL (2.5-4.9); Potassium 3.8 mmol/L (3.5-5.1); Sodium Level 139 mmol/L (136-145); Uric Acid 5.6 mg/dL (3.5-7.2)
[2017-09-25] MEDS: Furosemide 100 MG/10 ML Vial 60 MG IV ×3 (06:28→21:06)
[2017-09-25 07:10] LABS: Bedside Glucose 143 mg/dL (70-110)
[2017-09-25] MEDS: Metoprolol Tartrate 100 MG Tablet PO ×2 (08:53→21:07)
[2017-09-25] MEDS: Pioglitazone Hydrochloride 45 MG Tablet PO (08:53)
[2017-09-25] MEDS: Ferrous Sulfate 325 MG Tablet PO ×2 (08:54→17:14)
[2017-09-25] MEDS: Glimepiride 4 MG Tablet PO ×2 (08:54→17:13)
[2017-09-25] MEDS: Famotidine 20 MG Tablet PO ×2 (08:55→21:07)
[2017-09-25] MEDS: Aspirin 325 MG Tablet PO (08:57)
[2017-09-25] MEDS: 0.9% NaCl Peripheral Flush Adult/Peds IV ×2 (08:59→13:07)
[2017-09-25 11:46] LABS: Bedside Glucose 198 mg/dL (70-110)
--- NOTE | 2017-09-25 11:53 | CASEMGMT ---
Pt's updated on all at this time, voices understanding and states that [facility] is planning on coming out Thursday to see pt, as pt's daughter will be off and be able to be there also. Annette SANDOVAL CM
--- NOTE | 2017-09-25 12:52 | PCM.PN.REN ---
Patient Problems: Active and Suspected Problems PAD (peripheral artery disease) (Acute) Subjective: Continues to diurese well with IV Lasix. Creatinine improved to 1.62. Still with left leg edema but improved since admission. Denied any chest pain or shortness of breath. Cellulitis in the left lower extremity improving on IV antibiotic therapy. - Physical Exam General: Alert, Oriented x3, Cooperative, No apparent distress Oral: Moist Mucosa Neck: Supple Lungs: Clear to auscultation, Diminished Cardiovascular: Regular rate Abdomen: Bowel Sounds Present, Soft, Non Tender, Non-Distended, Obese Extremities: Edema - LLE >RLE Skin: - - Cellulitis left lower extremity improving with antibiotics Musculoskeletal: No Muscle Wasting Neurological: Cranial nerves II-XII grossly intact Psych/Mental Status: Normal Affect, Appropriate, Alert and oriented to time, place, person, mood and affect Vital Signs Temp Pulse Resp BP Pulse Ox 97.8 F 84 18 122/62 H 96 09/25/17 08:47 09/25/17 11:45 09/25/17 08:47 09/25/17 08:47 09/25/17 08:47 Oxygen Delivery Method Room Air Weight: 120 kg Body Mass Index (BMI) 40.2 Intake and Output for Last 24 Hours 09/23/17 09/24/17 09/25/17 23:59 23:59 23:59 Intake Total 1314.5 / 1314.5 1221 / 1221 Output Total 6400 / 6400 6125 / 6125 1200 / 1200 Balance -5085.5 / -5085.5 -4904 / -4904 -1200 / -1200 Microbiology Past 72 Hours 09/23/17 08:45 C. difficile DNA Amplification - Final Stool 09/19/17 12:35 Gram Stain - Final Wound - Leg, Left Wound Culture - Final Staphylococcus aureus Pasteurella canis Streptococcus group G 09/19/17 12:35 Urine Culture - Final Urine, Clean Catch Culture exhibits no growth. Laboratory Tests Past 24 Hrs 09/24/17 09/24/17 09/24/17 14:15 16:55 16:55 Sodium Potassium Chloride Carbon Dioxide BUN Creatinine Estim Creat Clear Calc Est GFR (MDRD) Af Amer Est GFR (MDRD) Non-Af BUN/Creatinine Ratio Glucose Uric Acid Calcium Phosphorus Erythropoietin Pending Albumin U Random Total Protein Urine Creatinine < 13.00 Urine Total Protein Pending Urine Albumin Pending U Motex-4-Ubdcncnl Pending U Qpplq-6-Dvwwvegk Pending U Beta Globulin Pending U Gamma Globulin Pending U PEP M-Ken Pending 09/24/17 09/25/17 16:55 05:10 Sodium 139 Potassium 3.8 Chloride 103 Carbon Dioxide 28.0 BUN 64 H Creatinine 1.62 H Estim Creat Clear Calc 36.36 Est GFR (MDRD) Af Amer 53 L Est GFR (MDRD) Non-Af 44 L BUN/Creatinine Ratio 39.5 H Glucose 175 H Uric Acid 5.6 Calcium 8.7 Phosphorus 2.6 Erythropoietin Albumin 2.6 L U Random Total Protein < 6.0 Urine Creatinine Urine Total Protein Urine Albumin U Yxobv-3-Fufubpgx U Scmdx-3-Szhofrzc U Beta Globulin U Gamma Globulin U PEP M-Ken POC Glucose 09/25/17 09/25/17 09/25/17 11:29 06:45 03:53 POC Glucose 198 H 143 H 189 H 09/24/17 09/24/17 22:19 16:34 POC Glucose 335 H 289 H Medical Necessity - Tobacco Use Smoking Status: Former smoker Assessment/Plan Active and Suspected Problems PAD (peripheral artery disease) (Acute) 1. Acute on CKD stage III due to urinary retention. Creatinine back to baseline at 1.62 today with Sosa catheter. Acute event likely due to prerenal event from acute gout, YOSSI inhibitor vs urinary retention. Likely has underlying diabetic nephropathy with trace proteinuria. Lisinopril was on hold due to worsening renal function. Agree with discontinuation of metformin for acute kidney injury. 2. Cellulitis left lower extremity with foot ulcer. Cellulitis improved with IV antibiotic therapy. Blood cx no growth so far. 3. Diabetes mellitus type 2. 4. Hypertension with stable blood pressure 5. Morbid obesity 6. 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 Continue oral Lasix therapy 40 mg once a day to twice a day upon discharge. 7. Renal ultrasound unremarkable, spot urine protein creatinine ratio without proteinuria. 8. Anemia with adequate iron stores. Epo level ordered by primary service
[2017-09-25 16:10] LABS: PROEL- A/G Ratio 0.8 (0.7-1.7); PROEL- Alpha-1 Globulin 0.3 g/dL (0.0-0.4); PROEL- Alpha-2 Globulin 0.9 g/dL (0.4-1.0); PROEL- Beta Globulin 1.1 g/dL (0.7-1.3); PROEL- Gamma Globulin 1.6 g/dL (0.4-1.8); PROEL- Globulin, Total 3.9 g/dL (2.2-3.9); PROEL- TOTAL PROTEIN 6.9 g/dL (6.0-8.5)
[2017-09-25 17:01] LABS: Bedside Glucose 222 mg/dL (70-110)
--- NOTE | 2017-09-25 19:04 | PCM.PROGNOTE ---
Patient Problems: Active and Suspected Problems PAD (peripheral artery disease) (Acute) Subjective: Afebrile, vital signs stable, 94% on room air. Fluid balance is -8297 since admission. Creatinine continues to improve with diuresis and today is 1.62, down from 3.04 at admission. Blood sugars are coming under better control. No gout pain today Requesting a BSC for home at [place]. Sosa discontinued today and no problem voiding Objective: - Physical Exam General: Alert, Oriented x3, Cooperative, No apparent distress HEENT: Atraumatic Oral: Moist Mucosa Neck: Supple Lungs: CTA today but diminished, rales, no wheezes Cardiovascular: Regular rate, Regular Rhythm, Normal S1, No rub noted, No Gallop Telemetry: Normal sinus rhythm with no significant ectopy, has a lot of interference Abdomen: Bowel Sounds Present, Soft, Non Tender, Non-Distended, Obese Extremities: Edema is improving. Skin: No rashes, The L heel ulcer was debrided by Dr. Hanson on 09/24. The ulceration on the dorsum of the left foot has a very pale base and is nonhealing. No significant granulation tissue. - Physical Exam Vital Signs Temp Pulse Resp BP Pulse Ox 97.7 F L 82 18 143/72 H 94 09/25/17 14:23 09/25/17 15:07 09/25/17 14:23 09/25/17 14:23 09/25/17 14:23 Oxygen Delivery Method Room Air Weight: 264 lb 8.875 oz Body Mass Index (BMI) 40.2 Intake and Output for Last 24 Hours 09/23/17 09/24/17 09/25/17 23:59 23:59 23:59 Intake Total 1314.5 / 1314.5 1221 / 1221 1120 / 1120 Output Total 6400 / 6400 6125 / 6125 3425 / 3425 Balance -5085.5 / -5085.5 -4904 / -4904 -2305 / -2305 Microbiology Past 72 Hours 09/23/17 08:45 C. difficile DNA Amplification - Final Stool 09/19/17 12:35 Gram Stain - Final Wound - Leg, Left Wound Culture - Final Staphylococcus aureus Pasteurella canis Streptococcus group G Laboratory Tests Past 24 Hrs 09/24/17 09/24/17 09/25/17 06:20 14:15 05:10 Sodium 139 Potassium 3.8 Chloride 103 Carbon Dioxide 28.0 BUN 64 H Creatinine 1.62 H Estim Creat Clear Calc 36.36 Est GFR (MDRD) Af Amer 53 L Est GFR (MDRD) Non-Af 44 L BUN/Creatinine Ratio 39.5 H Glucose 175 H Uric Acid 5.6 Calcium 8.7 Phosphorus 2.6 Erythropoietin 21.0 H Total Protein (PEP) 6.9 Albumin 2.6 L Albumin (PEP) 3.0 Globulin (PEP) 3.9 Albumin/Globulin (PEP) 0.8 Dymwn-0-Ckfasehhi 0.3 Lluxm-3-Xmgmtffvy 0.9 Beta Globulins 1.1 Gamma Globulins 1.6 M-Ken PEP Note Comment PEP Interpretation Comment POC Glucose 09/25/17 09/25/17 09/25/17 16:23 11:29 06:45 POC Glucose 222 H 198 H 143 H 09/25/17 09/24/17 03:53 22:19 POC Glucose 189 H 335 H Medical Necessity - Tobacco Use Smoking Status: Former smoker Assessment/Plan Active and Suspected Problems PAD (peripheral artery disease) (Acute) impressions 1. Cellulitis of the LLE with ulcerations on the medial leg proximal to the ankle, the dorsum of the foot and the plantar surface over the heel. transitioned to Rocephin 09/23/17 MSSA, Pasturella and Group G strep 2. acute gouty arthritis - UA WNL. On Allopurinol. Suspect due to dietary indiscretion. Decrease the Prednisone to 20 mg daily. Denies ankle pain today. He does not have prednisone at home to start if he has a flare up. He does not follow a low purine diet. He has been seen by the sales product specialist and he, his and his daughter have been instructed in a low purine diet. 3. DM II -mealtime BS's are high since Metformin was discontinued. He has never had insulin in the past. should no be on Metformin with Stage 3 CRF. Start Levemir at HS....DC the prednisone today. If the blood sugars remain elevated may need to start novolog at meals. 4. Hemoccult positive stool with macrocytic anemia, TSH and B12 are within normal limits. The retic count is not elevated. Iron studies are not consistent with iron deficiency. SPE and UPE are pending 5. Acute renal failure on CRF stage III - seen by Dr. Whyte and he will follow up with her post DC 6. Morbid obesity 7. PVD 8. CAD - S/P CABG 9. Hypertension 10. Hyperlipidemia 11. Ischemic cardiomyopathy with a left ventricular ejection fraction of 40% in 2016. Repeat ECHO this admission still with a 40% EF. He has stage 2 diastolic dysfunction, a moderately dilate RV with a RV pressure estimated at 56(previously 32) consistent with moderate Pulmonary HTN. THe IVC is dilated 12. Pulmonary hypertension - moderate Discussed with Dr. Whyte. Will continue Lasix IV for 1 more day and convert to p.o. Lasix 40 mg twice daily in the a.m. Check a postvoid residual since the Sosa catheter has been discontinued to ensure that he is no longer retaining urine Change the Levemir to 15 units nightly and 20 units every morning discontinue the sliding scale Continue Amaryl and Actos No metformin at discharge secondary to renal failure Will DC on Omnicef for 3 additional days tomorrow to complete 10 days of treatment. Will follow up with Dr. Hanson in the wound care center 1 week post discharge encouraged him to wear the YOSSI wraps or compression stockings to help control the LE edema due to obesity with venous insufficiency and pulmonary HTN Encouraged weight loss Code Visit Inpatient E&M: 77916 Subs Hosp L2
--- NOTE | 2017-09-25 19:18 | PN_ITS ---
Patient Problems: Active and Suspected Problems PAD (peripheral artery disease) (Acute) Subjective: Afebrile, vital signs stable, 94% on room air. Fluid balance is -8297 since admission. Creatinine continues to improve with diuresis and today is 1.62, down from 3.04 at admission. Blood sugars are coming under better control. No gout pain today Requesting a BSC for home at [place]. Sosa discontinued today and no problem voiding Objective: - Physical Exam General: Alert, Oriented x3, Cooperative, No apparent distress HEENT: Atraumatic Oral: Moist Mucosa Neck: Supple Lungs: CTA today but diminished, rales, no wheezes Cardiovascular: Regular rate, Regular Rhythm, Normal S1, No rub noted, No Gallop Telemetry: Normal sinus rhythm with no significant ectopy, has a lot of interference Abdomen: Bowel Sounds Present, Soft, Non Tender, Non-Distended, Obese Extremities: Edema is improving. Skin: No rashes, The L heel ulcer was debrided by Dr. Hanson on 09/24. The ulceration on the dorsum of the left foot has a very pale base and is nonhealing. No significant granulation tissue. - Physical Exam Vital Signs Temp Pulse Resp BP Pulse Ox 97.7 F L 82 18 143/72 H 94 09/25/17 14:23 09/25/17 15:07 09/25/17 14:23 09/25/17 14:23 09/25/17 14:23 Oxygen Delivery Method Room Air Weight: 264 lb 8.875 oz Body Mass Index (BMI) 40.2 Intake and Output for Last 24 Hours 09/23/17 09/24/17 09/25/17 23:59 23:59 23:59 Intake Total 1314.5 / 1314.5 1221 / 1221 1120 / 1120 Output Total 6400 / 6400 6125 / 6125 3425 / 3425 Balance -5085.5 / -5085.5 -4904 / -4904 -2305 / -2305 Microbiology Past 72 Hours 09/23/17 08:45 C. difficile DNA Amplification - Final Stool 09/19/17 12:35 Gram Stain - Final Wound - Leg, Left Wound Culture - Final Staphylococcus aureus Pasteurella canis Streptococcus group G Laboratory Tests Past 24 Hrs 09/24/17 09/24/17 09/25/17 06:20 14:15 05:10 Sodium 139 Potassium 3.8 Chloride 103 Carbon Dioxide 28.0 BUN 64 H Creatinine 1.62 H Estim Creat Clear Calc 36.36 Est GFR (MDRD) Af Amer 53 L Est GFR (MDRD) Non-Af 44 L BUN/Creatinine Ratio 39.5 H Glucose 175 H Uric Acid 5.6 Calcium 8.7 Phosphorus 2.6 Erythropoietin 21.0 H Total Protein (PEP) 6.9 Albumin 2.6 L Albumin (PEP) 3.0 Globulin (PEP) 3.9 Albumin/Globulin (PEP) 0.8 Duvka-9-Esovncwfj 0.3 Dfyky-0-Xkyfjwzbw 0.9 Beta Globulins 1.1 Gamma Globulins 1.6 M-Ken PEP Note Comment PEP Interpretation Comment POC Glucose 09/25/17 09/25/17 09/25/17 16:23 11:29 06:45 POC Glucose 222 H 198 H 143 H 09/25/17 09/24/17 03:53 22:19 POC Glucose 189 H 335 H Medical Necessity - Tobacco Use Smoking Status: Former smoker Assessment/Plan Active and Suspected Problems PAD (peripheral artery disease) (Acute) impressions 1. Cellulitis of the LLE with ulcerations on the medial leg proximal to the ankle, the dorsum of the foot and the plantar surface over the heel. transitioned to Rocephin 09/23/17 MSSA, Pasturella and Group G strep 2. acute gouty arthritis - UA WNL. On Allopurinol. Suspect due to dietary indiscretion. Decrease the Prednisone to 20 mg daily. Denies ankle pain today. He does not have prednisone at home to start if he has a flare up. He does not follow a low purine diet. He has been seen by the port warden and he, his and his daughter have been instructed in a low purine diet. 3. DM II -mealtime BS's are high since Metformin was discontinued. He has never had insulin in the past. should no be on Metformin with Stage 3 CRF. Start Levemir at HS....DC the prednisone today. If the blood sugars remain elevated may need to start novolog at meals. 4. Hemoccult positive stool with macrocytic anemia, TSH and B12 are within normal limits. The retic count is not elevated. Iron studies are not consistent with iron deficiency. SPE and UPE are pending 5. Acute renal failure on CRF stage III - seen by Dr. Whyte and he will follow up with her post DC 6. Morbid obesity 7. PVD 8. CAD - S/P CABG 9. Hypertension 10. Hyperlipidemia 11. Ischemic cardiomyopathy with a left ventricular ejection fraction of 40% in 2016. Repeat ECHO this admission still with a 40% EF. He has stage 2 diastolic dysfunction, a moderately dilate RV with a RV pressure estimated at 56 (previously 32) consistent with moderate Pulmonary HTN. THe IVC is dilated 12. Pulmonary hypertension - moderate Discussed with Dr. Whyte. Will continue Lasix IV for 1 more day and convert to p.o. Lasix 40 mg twice daily in the a.m. Check a postvoid residual since the Sosa catheter has been discontinued to ensure that he is no longer retaining urine Change the Levemir to 15 units nightly and 20 units every morning discontinue the sliding scale Continue Amaryl and Actos No metformin at discharge secondary to renal failure Will DC on Omnicef for 3 additional days tomorrow to complete 10 days of treatment. Will follow up with Dr. Hanson in the wound care center 1 week post discharge encouraged him to wear the YOSSI wraps or compression stockings to help control the LE edema due to obesity with venous insufficiency and pulmonary HTN Encouraged weight loss Code Visit Inpatient E&M: 53525 Subs Hosp L2
[2017-09-25] MEDS: Atorvastatin Calcium 40 MG Tablet PO (21:07)
[2017-09-26 00:26] LABS: Bedside Glucose 309 mg/dL (70-110)
[2017-09-26 02:18] VITALS: BP 116/63; PULSE 82; RESP 20; TEMP 37; O2SAT 93
[2017-09-26 02:31] LABS: Bedside Glucose 207 mg/dL (70-110)
[2017-09-26 03:13] VITALS: PULSE 80
[2017-09-26 05:37] VITALS: BP 129/72; PULSE 86; RESP 16; TEMP 37; O2SAT 95
[2017-09-26] MEDS: Furosemide 100 MG/10 ML Vial 60 MG IV (05:41)
[2017-09-26] MEDS: 0.9% NaCl Peripheral Flush Adult/Peds IV (05:43)
[2017-09-26 06:46] LABS: Anion Gap 8 (5-15); BUN 67 mg/dL (7-18); BUN/Creat Ratio 42.7 RATIO (10-20); Calcium,Total 8.8 mg/dL (8.5-10.1); Chloride 100 mmol/L (98-107); Creatinine, Serum 1.57 mg/dL (0.70-1.30); EST Glomerular Filtration Rate 46 mL/min (>60); Est Glom Filt Rate - Afr Amer 55 mL/min (>60); Estimated Creatinine Clearance 37.52 ml/min; Glucose 131 mg/dL (74-106); Sodium Level 138 mmol/L (136-145)
[2017-09-26 06:55] LABS: Bedside Glucose 132 mg/dL (70-110)
[2017-09-26 07:36] VITALS: PULSE 95
--- NOTE | 2017-09-26 08:00 | NURSING ---
post void residual checked, it is 167 ml at this time. Dr Summers in the room to see the patient and she is made aware.
[2017-09-26 08:30] VITALS: BP 138/56; PULSE 94; RESP 18
[2017-09-26] MEDS: Famotidine 20 MG Tablet PO (08:33)
[2017-09-26] MEDS: Ferrous Sulfate 325 MG Tablet PO (08:33)
[2017-09-26] MEDS: Pioglitazone Hydrochloride 45 MG Tablet PO (08:33)
[2017-09-26] MEDS: Aspirin 325 MG Tablet PO (08:33)
[2017-09-26] MEDS: Glimepiride 4 MG Tablet PO (08:33)
[2017-09-26 08:34] VITALS: BP 138/56; PULSE 94
[2017-09-26] MEDS: Metoprolol Tartrate 100 MG Tablet PO (08:34)
[2017-09-26] MEDS: Cefdinir 300 MG Capsule PO (08:42)
--- NOTE | 2017-09-26 10:26 | PCM.DC ---
- Discharge Diagnoses Current Active Problems: Current Active and Chronic Problems PAD (peripheral artery disease) (Acute) Stage III chronic kidney disease (Chronic) Type 2 diabetes mellitus (Chronic) You will use the following diet at home:: Calorie/Carbohydrate Controlled (specify 1200, 1400, etc) - 1800 calories Your food should be the consistency of: Regular Your liquids should be the consistency of: Regular/Thin Discharge Activity: Return to Normal Activity, Use Walker Weight Bearing Status: No weight bearing - left Keep extremity elevated above heart level: Left Leg Call your doctor if your incision/area has: Continuous Slow Oozing, Sudden Increased Bleeding, Increased Pain/ Swelling, Increased Redness, Foul Smelling Discharge, Swelling at the incision site Call your doctor if you observe: Fever of 101 or Higher, Coldness, Increased Pain, Shortness of breath, Dizziness, Fainting spells, Chest pain, Calf discomfort, Uncontrolled pain, - - increased swelling in the legs or increasing weight. You should be weighing yourself daily. If the weight increases by % pounds or greater in a week this means you are retaining fluid and you will need to cut back on fluid intake, cut back on salt and maybe take and extra lasix for a day or twqo until the weight is back to baseline. severe diarrhea, rash Cleanse incision/area with: - - change left heel dressing daily with betadine wicked gauze, adaptic and to the dorsal foot and posterior leg ulcer sites. secure with gauze, kerlix, and yossi wraps. Additional Instructions: 1. You can no longer take Metformin because of the kidney failure. You have been started on a long acting insulin called Levemir. You will take 2 shots a day, one with breakfast and 1 at 9PM nightly. 2. You have been taken off Lisinopril because you had acute on chronic kidey failure at admission. Dr. Whyte may want to restart this medication again in the future. 3. There is blood in your stool and you are anemic. Talk to your PCP about getting scheduled for a colonoscopy. 4. I think you may have sleep apnea. Talk with your PCP about getting a sleep study scheduled. 5. It is important to wear compression stockings from the time you swing your legs out of bed in the morning until you lie down at night to go to sleep. I am giving you a prescription to be measured for compression stockings.....the ones with the zippers are easier to get on. Alternatively you could continue to use the YOSSI wraps for compression. 6. You have disease in the arteries in your legs making it difficult for wounds to heal due to decreased blood flow in the arteries. Dr. Neville Valdez saw you in the hospital. You can either follow up with him as an outpatient or there is another vascular surgeon by the name of Dr. Sam Marx who also has office hours here at the hospital. 7. Dr. Hanson wants to see you at the wound care center in 1 week. Allergies/Adverse Reactions: Allergies No Known Allergies Allergy (Verified 09/19/17 09:11) Medications to take at Discharge Aspirin 325 mg PO DAILY@0800 03/25/15 Glimepiride 4 mg PO BID 03/25/15 Allopurinol [Zyloprim] 300 mg PO DAILYCM #30 tablet 04/05/15 Atorvastatin Calcium [Lipitor] 40 mg PO QHS #30 tablet 04/05/15 Metoprolol Tartrate [Lopressor (beta dixon)] 100 mg PO BID #60 tablet 04/05/15 Pioglitazone [Actos] 45 mg PO DAILY 09/19/17 Acetaminophen [Tylenol Tablet] 650 mg PO Q6H PRN PRN tablet 09/26/17 Cefdinir [Omnicef [equiv]] 300 mg PO Q12 #5 cap 09/26/17 Ferrous Sulfate 325 mg PO BIDCM #60 tab 09/26/17 Furosemide [Lasix] 40 mg PO BID@1000,1800 #60 tab 09/26/17 Glimepiride [Amaryl] 4 mg PO BIDCM tablet 09/26/17 Insulin Detemir [Levemir FlexPen] 15 units SC BID #10 insuln.pen 09/26/17 Lactobacillus Acidophilus [Acidophilus] 2 tab PO BID #20 tab 09/26/17 Pen Needle, Diabetic [Pen [place]] 1 ea MC BID #60 dis.[email or web address] 09/26/17 Prednisone 20 mg PO DAILY PRN #12 tab 09/26/17 The following prescriptions were given: Cefdinir [Omnicef [equiv]] 300 mg PO Q12 #5 cap Furosemide [Lasix] 40 mg PO BID@1000,1800 #60 tab Prednisone 20 mg PO DAILY PRN #12 tab PRN Reason: acute gout Ferrous Sulfate 325 mg PO BIDCM #60 tab Insulin Detemir [Levemir FlexPen] 15 units SC BID #10 insuln.pen Lactobacillus Acidophilus [Acidophilus] 2 tab PO BID #20 tab Pen Needle, Diabetic [Pen [place]] 1 ea MC BID #60 dis.[email or web address] Primary Care Physician: Kian Valdez III, MD [Primary Care Provider] - Please Follow Up With: Nikole Hanson DPM When: 1 week at the wound healing center; call to confirm appointment time Please Follow Up With: Christiane Patel MD When: soonest available Proposed Discharge Date: 09/26/17
--- NOTE | 2017-09-26 10:46 | PCM.DC.SUM ---
Discharge Date and Diagnosis Date of Admission: 09/19/17 Date of Discharge: 09/26/17 - Primary Discharge Diagnosis Active and Suspected Problems Cellulitis LLE with ulcerations due to MSSA, Pasturella and Group G strep Acute gouty arthritis of left ankle Hemoccult positive stool with macrocytic anemia Acute renal failure on chronic renal failure stage III Acute systolic congestive heart failure with plus peripheral edema secondary to decreased left ventricular ejection fraction and pulmonary hypertension - Secondary Discharge Diagnosis Chronic Problems Stage III chronic kidney disease (Chronic) Type 2 diabetes mellitus (Chronic) Status post coronary artery bypass graft (Chronic) Coronary artery disease (Chronic) Hyperlipidemia (Chronic) Hypertension (Chronic) Morbid obesity Peripheral vascular disease Pulmonary hypertension with a RV pressure estimated at 56 Hospital Course and Treatment Imaging Results: Clinical Impression(s) from Imaging Studies Ankle X-Ray 09/19/17 09:16 IMPRESSION: Soft tissue ulcer. No focal erosion. Arthritic change. Demineralization. Electronically Signed: Rupesh Carter MD at 10:17 EDT , Service support , Foot X-Ray 09/19/17 09:16 IMPRESSION: No focal erosion. Soft tissue lucency consistent with ulcer. Demineralization. Arthritic change. Electronically Signed: Rupesh Carter MD at 10:20 EDT , Service support , Lower Extremity MRI 09/21/17 08:38 IMPRESSION: Edema in the subcutis adipose space without demonstrated soft tissue abscess or osteomyelitis. 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 Talonavicular arthrosis and arthrosis of the first through fifth tarsometatarsal joints. 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 Atrophy of the intrinsic muscles of the foot suggestive of peripheral neuropathy. Electronically Signed: Richard Bunn MD at 10:35 EDT Tel , Service support , Renal Ultrasound 09/24/17 05:55 IMPRESSION: Normal kidneys. No hydronephrosis. Electronically Signed: Иван Bowden, at 18:41 EDT Tel , Service support , Microbiology 09/19/17 09:30 Blood Culture (Wb) - Right Hand Blood Culture - Final No growth in 5 days. 09/19/17 10:45 Blood Culture (Wb) - Arm Left Blood Culture - Final No growth in 5 days. 09/23/17 08:45 Stool C. difficile DNA Amplification - Final 09/19/17 12:35 Wound - Leg, Left Gram Stain - Final 09/19/17 12:35 Wound - Leg, Left Wound Culture - Final Staphylococcus aureus Pasteurella canis Streptococcus group G 09/19/17 12:35 Urine, Clean Catch Urine Culture - Final Culture exhibits no growth. 09/21/17 08:35 Stool Stool Occult Blood (GORDO) - Final Occult Blood Positive Laboratory Results - last 24 hr 09/24/17 09/24/17 09/25/17 06:20 14:15 11:29 Sodium Potassium Chloride Carbon Dioxide Anion Gap BUN Creatinine Estim Creat Clear Calc Est GFR (MDRD) Af Amer Est GFR (MDRD) Non-Af BUN/Creatinine Ratio Glucose Calcium Erythropoietin 21.0 H Total Protein (PEP) 6.9 Albumin (PEP) 3.0 Globulin (PEP) 3.9 Albumin/Globulin (PEP) 0.8 Gsngk-9-Nrgaadpcg 0.3 Usxtz-9-Uesgquwvb 0.9 Beta Globulins 1.1 Gamma Globulins 1.6 M-Ken PEP Note Comment PEP Interpretation Comment POC Glucose 198 H 09/25/17 09/25/17 09/26/17 16:23 21:03 02:16 Sodium Potassium Chloride Carbon Dioxide Anion Gap BUN Creatinine Estim Creat Clear Calc Est GFR (MDRD) Af Amer Est GFR (MDRD) Non-Af BUN/Creatinine Ratio Glucose Calcium Erythropoietin Total Protein (PEP) Albumin (PEP) Globulin (PEP) Albumin/Globulin (PEP) Ucepg-1-Zhnkfxrkd Zntrw-9-Xptrpoibt Beta Globulins Gamma Globulins M-Ken PEP Note PEP Interpretation POC Glucose 222 H 309 H 207 H 09/26/17 09/26/17 05:35 06:48 Sodium 138 Potassium 4.0 Chloride 100 Carbon Dioxide 30.0 Anion Gap 8 BUN 67 H Creatinine 1.57 H Estim Creat Clear Calc 37.52 Est GFR (MDRD) Af Amer 55 L Est GFR (MDRD) Non-Af 46 L BUN/Creatinine Ratio 42.7 H Glucose 131 H Calcium 8.8 Erythropoietin Total Protein (PEP) Albumin (PEP) Globulin (PEP) Albumin/Globulin (PEP) Qkwad-4-Fmheqvssb Kpvtm-6-Uhhzbimgm Beta Globulins Gamma Globulins M-Ken PEP Note PEP Interpretation POC Glucose 132 H Consultations 09/19/17 12:01 Consult: Onc/Wound/song plugger Routine Comment: Operations: None Procedures: 2-D Echocardiogram Summary of Care Provided: Patient is a 77-year-old male with a past medical history of type 2 diabetes mellitus, coronary artery disease (status post CABG), chronic renal failure stage III, hyperlipidemia, gout and hypertension who presented to the emergency department at [facility] on 09/19/2017 complaining of swelling, redness and pain of the left foot and left lower extremity. He had multiple ulcerations on the left foot and erythema extending to the tibial plateau. He was seen by Dr. Boykin and had bedside debridement. Non-invasive arterial studies on the LE's revealed at least moderate PVD. MRI of the left foot showed edema in the subcutis adipose space without demonstrated soft tissue abscess or osteomyelitis. There was a focal lesion in the tibialis anterior tendon suggestive of a tophus. There were erosive changes of the first metatarsal head with adjacent tophi. There was talonavicular arthrosis and arthrosis of the first through fifth tarsometatarsal joints. 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 ESR was 80 at admission and the CRP was 38. Serology from the wound drainage is positive for MSSA and negative for MRSA. He was started on prednisone for acute gouty arthritis and Vancomycin and Zosyn for infection. Wound cultures grew MSSA, Pasteurella and group G strep. Vancomycin and Zosyn were discontinued when the cultures were available and he was ordered Rocephin. Acute gouty arthritis resolved redness and was discontinued. He was diuresed with near resolution of peripheral edema at [place]. He was seen by Dr. Whyte in the hospital to establish care and will follow up with her as an OP. He was also seen by Dr. Valdez for PVD and he recommended we resolve the edema prior to any further testing, such as angiogram. He can follow up with him in the office as an OP. He was started on Levemir in addition to Amaryl and Actos because Metformin was discontinued due to CRF. He was instructed in proper use of an insulin pen prior to DC. The infection resolved but, he continues to have open wounds and will follow up with Dr. Hanson in the wound care center post DC. He was discharged home on 09/26 with Cefdinir to finish 10 days of antibiotics. Home Health was arranged for wound care at [place]. While in the hospital he was found to be anemic and Hemoccult stool was positive. An iron panel revealed a normal ferritin at 101, normal iron at 68 and a TIBC of 307. He is going to follow-up with his PCP to arrange for endoscopy because he has never had a colonoscopy or an EGD. He was discharged on 09/26 and will follow up with Dr. Camacho in the wound care center in 1 week. This note was generated with [employer] dictation software. It may contain incorrect words, spelling, and punctuation that were not noted in checking the note before signing. Discharge Activity: Return to Normal Activity, Use Walker Weight Bearing Status: No weight bearing - left Keep extremity elevated above heart level: Left Leg Call your doctor if your incision/area has: Continuous Slow Oozing, Sudden Increased Bleeding, Increased Pain/ Swelling, Increased Redness, Foul Smelling Discharge, Swelling at the incision site Call your doctor if you observe: Fever of 101 or Higher, Coldness, Increased Pain, Shortness of breath, Dizziness, Fainting spells, Chest pain, Calf discomfort, Uncontrolled pain, - - increased swelling in the legs or increasing weight. You should be weighing yourself daily. If the weight increases by % pounds or greater in a week this means you are retaining fluid and you will need to cut back on fluid intake, cut back on salt and maybe take and extra lasix for a day or twqo until the weight is back to baseline. severe diarrhea, rash Cleanse incision/area with: - - change left heel dressing daily with betadine wicked gauze, adaptic and to the dorsal foot and posterior leg ulcer sites. secure with gauze, kerlix, and yossi wraps. Home Medications: Medications to take at Discharge Aspirin 325 mg PO DAILY@0800 03/25/15 Glimepiride 4 mg PO BID 03/25/15 Allopurinol [Zyloprim] 300 mg PO DAILYCM #30 tablet 04/05/15 Atorvastatin Calcium [Lipitor] 40 mg PO QHS #30 tablet 04/05/15 Metoprolol Tartrate [Lopressor (beta dixon)] 100 mg PO BID #60 tablet 04/05/15 Pioglitazone [Actos] 45 mg PO DAILY 09/19/17 Acetaminophen [Tylenol Tablet] 650 mg PO Q6H PRN PRN tablet 09/26/17 Cefdinir [Omnicef [equiv]] 300 mg PO Q12 #5 cap 09/26/17 Ferrous Sulfate 325 mg PO BIDCM #60 tab 09/26/17 Furosemide [Lasix] 40 mg PO BID@1000,1800 #60 tab 09/26/17 Glimepiride [Amaryl] 4 mg PO BIDCM tablet 09/26/17 Insulin Detemir [Levemir FlexPen] 15 units SC BID #10 insuln.pen 09/26/17 Lactobacillus Acidophilus [Acidophilus] 2 tab PO BID #20 tab 09/26/17 Pen Needle, Diabetic [Pen [place]] 1 ea MC BID #60 dis.needle 09/26/17 Prednisone 20 mg PO DAILY PRN #12 tab 09/26/17 Following Prescrptions Were Given to Patient: Cefdinir [Omnicef [equiv]] 300 mg PO Q12 #5 cap Furosemide [Lasix] 40 mg PO BID@1000,1800 #60 tab Prednisone 20 mg PO DAILY PRN #12 tab PRN Reason: acute gout Ferrous Sulfate 325 mg PO BIDCM #60 tab Insulin Detemir [Levemir FlexPen] 15 units SC BID #10 insuln.pen Lactobacillus Acidophilus [Acidophilus] 2 tab PO BID #20 tab Pen Needle, Diabetic [Pen [place]] 1 ea MC BID #60 dis.needle Primary Care Physician: Kian Valdez III, MD [Primary Care Provider] - Please Follow Up With: Nikole Hanson DPM When: 1 week at the wound healing center; call to confirm appointment time Please Follow Up With: Christiane Patel MD When: soonest available Disposition: Home Minutes spent on discharge:: 40 Patient Condition:: Good Medical Necessity - Tobacco Use Smoking Status: Former smoker Meaningful Use Info Meaningful Use Diagnoses (Choose all that apply): CHF - CHF YOSSI/ARB ordered at discharge?: No Reason YOSSI/ARB not ordered?: Worsening renal function Documented LVEF (%): 40 Code Visit Inpatient E&M: 13168 Disch Hosp
--- NOTE | 2017-09-26 10:52 | DS.PCM_ITS ---
Discharge Date and Diagnosis Date of Admission: 09/19/17 Date of Discharge: 09/26/17 - Primary Discharge Diagnosis Active and Suspected Problems Cellulitis LLE with ulcerations due to MSSA, Pasturella and Group G strep Acute gouty arthritis of left ankle Hemoccult positive stool with macrocytic anemia Acute renal failure on chronic renal failure stage III Acute systolic congestive heart failure with plus peripheral edema secondary to decreased left ventricular ejection fraction and pulmonary hypertension - Secondary Discharge Diagnosis Chronic Problems Stage III chronic kidney disease (Chronic) Type 2 diabetes mellitus (Chronic) Status post coronary artery bypass graft (Chronic) Coronary artery disease (Chronic) Hyperlipidemia (Chronic) Hypertension (Chronic) Morbid obesity Peripheral vascular disease Pulmonary hypertension with a RV pressure estimated at 56 Hospital Course and Treatment Imaging Results: Clinical Impression(s) from Imaging Studies Ankle X-Ray 09/19/17 09:16 IMPRESSION: Soft tissue ulcer. No focal erosion. Arthritic change. Demineralization. Electronically Signed: Rupesh Carter MD at 10:17 EDT , Service support , Foot X-Ray 09/19/17 09:16 IMPRESSION: No focal erosion. Soft tissue lucency consistent with ulcer. Demineralization. Arthritic change. Electronically Signed: Rupesh Carter MD at 10:20 EDT , Service support , Lower Extremity MRI 09/21/17 08:38 IMPRESSION: Edema in the subcutis adipose space without demonstrated soft tissue abscess or osteomyelitis. 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 Talonavicular arthrosis and arthrosis of the first through fifth tarsometatarsal joints. 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 Atrophy of the intrinsic muscles of the foot suggestive of peripheral neuropathy. Electronically Signed: Richard Bunn MD at 10:35 EDT Tel , Service support , Renal Ultrasound 09/24/17 05:55 IMPRESSION: Normal kidneys. No hydronephrosis. Electronically Signed: Иван Bowden, at 18:41 EDT Tel , Service support , Microbiology 09/19/17 09:30 Blood Culture (Wb) - Right Hand Blood Culture - Final No growth in 5 days. 09/19/17 10:45 Blood Culture (Wb) - Arm Left Blood Culture - Final No growth in 5 days. 09/23/17 08:45 Stool C. difficile DNA Amplification - Final 09/19/17 12:35 Wound - Leg, Left Gram Stain - Final 09/19/17 12:35 Wound - Leg, Left Wound Culture - Final Staphylococcus aureus Pasteurella canis Streptococcus group G 09/19/17 12:35 Urine, Clean Catch Urine Culture - Final Culture exhibits no growth. 09/21/17 08:35 Stool Stool Occult Blood (GORDO) - Final Occult Blood Positive Laboratory Results - last 24 hr 09/24/17 09/24/17 09/25/17 06:20 14:15 11:29 Sodium Potassium Chloride Carbon Dioxide Anion Gap BUN Creatinine Estim Creat Clear Calc Est GFR (MDRD) Af Amer Est GFR (MDRD) Non-Af BUN/Creatinine Ratio Glucose Calcium Erythropoietin 21.0 H Total Protein (PEP) 6.9 Albumin (PEP) 3.0 Globulin (PEP) 3.9 Albumin/Globulin (PEP) 0.8 Xvzvr-6-Drtumizlv 0.3 Wowyb-7-Aolfdllhx 0.9 Beta Globulins 1.1 Gamma Globulins 1.6 M-Ken PEP Note Comment PEP Interpretation Comment POC Glucose 198 H 09/25/17 09/25/17 09/26/17 16:23 21:03 02:16 Sodium Potassium Chloride Carbon Dioxide Anion Gap BUN Creatinine Estim Creat Clear Calc Est GFR (MDRD) Af Amer Est GFR (MDRD) Non-Af BUN/Creatinine Ratio Glucose Calcium Erythropoietin Total Protein (PEP) Albumin (PEP) Globulin (PEP) Albumin/Globulin (PEP) Voayo-1-Ltcdyysrf Biduv-5-Xelxbhbgo Beta Globulins Gamma Globulins M-Ken PEP Note PEP Interpretation POC Glucose 222 H 309 H 207 H 09/26/17 09/26/17 05:35 06:48 Sodium 138 Potassium 4.0 Chloride 100 Carbon Dioxide 30.0 Anion Gap 8 BUN 67 H Creatinine 1.57 H Estim Creat Clear Calc 37.52 Est GFR (MDRD) Af Amer 55 L Est GFR (MDRD) Non-Af 46 L BUN/Creatinine Ratio 42.7 H Glucose 131 H Calcium 8.8 Erythropoietin Total Protein (PEP) Albumin (PEP) Globulin (PEP) Albumin/Globulin (PEP) Henyy-3-Nrqezhnfw Okqvp-5-Mquqedilg Beta Globulins Gamma Globulins M-Ken PEP Note PEP Interpretation POC Glucose 132 H Consultations 09/19/17 12:01 Consult: Onc/Wound/gas specialist Routine Comment: Operations: None Procedures: 2-D Echocardiogram Summary of Care Provided: Patient is a 77-year-old male with a past medical history of type 2 diabetes mellitus, coronary artery disease (status post CABG), chronic renal failure stage III, hyperlipidemia, gout and hypertension who presented to the emergency department at [facility] on 09/19/2017 complaining of swelling, redness and pain of the left foot and left lower extremity. He had multiple ulcerations on the left foot and erythema extending to the tibial plateau. He was seen by Dr. Boykin and had bedside debridement. Non-invasive arterial studies on the LE's revealed at least moderate PVD. MRI of the left foot showed edema in the subcutis adipose space without demonstrated soft tissue abscess or osteomyelitis. There was a focal lesion in the tibialis anterior tendon suggestive of a tophus. There were erosive changes of the first metatarsal head with adjacent tophi. There was talonavicular arthrosis and arthrosis of the first through fifth tarsometatarsal joints. 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 ESR was 80 at admission and the CRP was 38. Serology from the wound drainage is positive for MSSA and negative for MRSA. He was started on prednisone for acute gouty arthritis and Vancomycin and Zosyn for infection. Wound cultures grew MSSA, Pasteurella and group G strep. Vancomycin and Zosyn were discontinued when the cultures were available and he was ordered Rocephin. Acute gouty arthritis resolved redness and was discontinued. He was diuresed with near resolution of peripheral edema at [place]. He was seen by Dr. Whyte in the hospital to establish care and will follow up with her as an OP. He was also seen by Dr. Valdez for PVD and he recommended we resolve the edema prior to any further testing, such as angiogram. He can follow up with him in the office as an OP. He was started on Levemir in addition to Amaryl and Actos because Metformin was discontinued due to CRF. He was instructed in proper use of an insulin pen prior to [place]. The infection resolved but, he continues to have open wounds and will follow up with Dr. Hanson in the wound care center post [place]. He was discharged home on 09/26 with Cefdinir to finish 10 days of antibiotics. Home Health was arranged for wound care at [place]. While in the hospital he was found to be anemic and Hemoccult stool was positive. An iron panel revealed a normal ferritin at 101, normal iron at 68 and a TIBC of 307. He is going to follow-up with his PCP to arrange for endoscopy because he has never had a colonoscopy or an EGD. He was discharged on 09/26 and will follow up with Dr. Camacho in the wound care center in 1 week. This note was generated with [employer] dictation software. It may contain incorrect words, spelling, and punctuation that were not noted in checking the note before signing. Discharge Activity: Return to Normal Activity, Use Walker Weight Bearing Status: No weight bearing - left Keep extremity elevated above heart level: Left Leg Call your doctor if your incision/area has: Continuous Slow Oozing, Sudden Increased Bleeding, Increased Pain/ Swelling, Increased Redness, Foul Smelling Discharge, Swelling at the incision site Call your doctor if you observe: Fever of 101 or Higher, Coldness, Increased Pain, Shortness of breath, Dizziness, Fainting spells, Chest pain, Calf discomfort, Uncontrolled pain, - - increased swelling in the legs or increasing weight. You should be weighing yourself daily. If the weight increases by % pounds or greater in a week this means you are retaining fluid and you will need to cut back on fluid intake, cut back on salt and maybe take and extra lasix for a day or twqo until the weight is back to baseline. severe diarrhea, rash Cleanse incision/area with: - - change left heel dressing daily with betadine wicked gauze, adaptic and to the dorsal foot and posterior leg ulcer sites. secure with gauze, kerlix, and yossi wraps. Home Medications: Medications to take at Discharge Aspirin 325 mg PO DAILY@0800 03/25/15 Glimepiride 4 mg PO BID 03/25/15 Allopurinol [Zyloprim] 300 mg PO DAILYCM #30 tablet 04/05/15 Atorvastatin Calcium [Lipitor] 40 mg PO QHS #30 tablet 04/05/15 Metoprolol Tartrate [Lopressor (beta dixon)] 100 mg PO BID #60 tablet Pioglitazone [Actos] 45 mg PO DAILY 09/19/17 Acetaminophen [Tylenol Tablet] 650 mg PO Q6H PRN PRN tablet 09/26/17 Cefdinir [Omnicef [equiv]] 300 mg PO Q12 #5 cap 09/26/17 Ferrous Sulfate 325 mg PO BIDCM #60 tab 09/26/17 Furosemide [Lasix] 40 mg PO BID@1000,1800 #60 tab 09/26/17 Glimepiride [Amaryl] 4 mg PO BIDCM tablet 09/26/17 Insulin Detemir [Levemir FlexPen] 15 units SC BID #10 insuln.pen 09/26/17 Lactobacillus Acidophilus [Acidophilus] 2 tab PO BID #20 tab 09/26/17 Pen Needle, Diabetic [Pen [place]] 1 ea MC BID #60 dis.needle 09/26/17 Prednisone 20 mg PO DAILY PRN #12 tab 09/26/17 Following Prescrptions Were Given to Patient: Cefdinir [Omnicef [equiv]] 300 mg PO Q12 #5 cap Furosemide [Lasix] 40 mg PO BID@1000,1800 #60 tab Prednisone 20 mg PO DAILY PRN #12 tab PRN Reason: acute gout Ferrous Sulfate 325 mg PO BIDCM #60 tab Insulin Detemir [Levemir FlexPen] 15 units SC BID #10 insuln.pen Lactobacillus Acidophilus [Acidophilus] 2 tab PO BID #20 tab Pen Needle, Diabetic [Pen [place]] 1 ea MC BID #60 dis.needle Primary Care Physician: Kian Valdez III, MD [Primary Care Provider] - Please Follow Up With: Nikole Hanson DPM When: 1 week at the wound healing center; call to confirm appointment time Please Follow Up With: Christiane Patel MD When: soonest available Disposition: Home Minutes spent on discharge:: 40 Patient Condition:: Good Medical Necessity - Tobacco Use Smoking Status: Former smoker Meaningful Use Info Meaningful Use Diagnoses (Choose all that apply): CHF - CHF YOSSI/ARB ordered at discharge?: No Reason YOSSI/ARB not ordered?: Worsening renal function Documented LVEF (%): 40 Code Visit Inpatient E&M: 14713 Disch Hosp
[2017-09-29 16:09] LABS: PROELU- Albumin, Urine 20.3 % (.); PROELU- Alpha-1-Globulin,Ur 5.7 % (.); PROELU- Alpha-2-Globulin,Ur 26.7 % (.); PROELU- Beta Globulin, Ur 26.4 % (.); PROELU- Gamma Globulin, Ur 20.9 % (.)
[2017-09-30 11:18] LABS: Total Protein, Ur < 4.0 mg/dL (Not Estab.)
== END 2017-09-26 11:25 | disposition home health service (06) | DRG 571 ==
LOC: ED 09:42 → PCU 11:28
PROVIDERS: Internal Medicine Nephrology; Admitting Provider Hospitalist; Emergency Provider Emergency Medicine; Family Provider Family Medicine; PCP Family Medicine; Visit Provider Internal Medicine
DX: L03.116 Cellulitis of left lower limb (principal); N17.9 Acute kidney failure, unspecified; L97.828 Non-pressure chronic ulcer of other part of left lower leg with other specified severity; L97.428 Non-pressure chronic ulcer of left heel and midfoot with other specified severity; L97.328 Non-pressure chronic ulcer of left ankle with other specified severity; L97.528 Non-pressure chronic ulcer of other part of left foot with other specified severity; K92.1 Melena; Z68.41 Body mass index [BMI] 40.0-44.9, adult; I12.9 Hypertensive chronic kidney disease with stage 1 through stage 4 chronic kidney disease, or unspecified chronic kidney disease; B95.4 Other streptococcus as the cause of diseases classified elsewhere; B95.61 Methicillin susceptible Staphylococcus aureus infection as the cause of diseases classified elsewhere; B96.89 Other specified bacterial agents as the cause of diseases classified elsewhere; I73.9 Peripheral vascular disease, unspecified; E11.22 Type 2 diabetes mellitus with diabetic chronic kidney disease; N18.3 Chronic kidney disease, stage 3 (moderate); E11.42 Type 2 diabetes mellitus with diabetic polyneuropathy; I25.10 Atherosclerotic heart disease of native coronary artery without angina pectoris; D63.1 Anemia in chronic kidney disease; E78.5 Hyperlipidemia, unspecified; M10.9 Gout, unspecified; D53.9 Nutritional anemia, unspecified; E66.01 Morbid (severe) obesity due to excess calories; I25.5 Ischemic cardiomyopathy; I27.20 Pulmonary hypertension, unspecified; Z87.891 Personal history of nicotine dependence; Z95.1 Presence of aortocoronary bypass graft; Z79.84 Long term (current) use of oral hypoglycemic drugs; Z79.82 Long term (current) use of aspirin; Z79.899 Other long term (current) drug therapy
CPT/HCPCS: 36415; 51702; 73610; 73630; 73718; 76770; 80048; 80069; 80076; 81001; 82274; 82570; 82607; 82668; 82728; 82747; 82962; 83540; 83550; 84100; 84156; 84165; 84166; 84550; 85014; 85018; 85025; 85027; 85045; 85610; 85652; 86140; 87040; 87070; 87077; 87086; 87186; 87205; 87493; 87640; 93306; 93923; 93971; 97110; 97116; 97162; 97165; 97530; 97535; 97802; 97803; 99285; J7030; J7040; Q9957; A4216; C8929; J0696; J1940

== ENCOUNTER 2017-10-09 11:20 | Day surgery (SDC) | payer MEDICARE, SELFPAY ==
[2017-10-09 12:00] VITALS: BP 121/62; PULSE 97; RESP 18; TEMP 36.6; O2SAT 97; BMI 38.2
[2017-10-09 12:01] LABS: Prothrombin Time Fingerstick 14.5 SEC (11.9-14.4)
[2017-10-09 12:15] LABS: Bedside Glucose 133 mg/dL (70-110)
[2017-10-09] MEDS: Bupivacaine Mpf 0.5% 30 ML VIAL (13:45)
--- NOTE | 2017-10-09 14:35 | PCM.DC.POD ---
Discharge Activity: May Not Shower, Use Walker - or wheel chair Weight Bearing Status: No weight bearing - left lower extremity Keep extremity elevated above heart level: Left Leg Call your doctor if your incision/area has: Continuous Slow Oozing, Sudden Increased Bleeding, Increased Pain/ Swelling, Increased Redness, Foul Smelling Discharge, Swelling at the incision site Call your doctor if you observe: Fever of 101 or Higher, Calf discomfort, Uncontrolled pain Cleanse incision/area with: Keep Dressing Clean & Dry Allergies/Adverse Reactions: Allergies No Known Allergies Allergy (Verified 10/08/17 08:13) Medications to take at Discharge Aspirin 325 mg PO DAILY@0800 03/25/15 Allopurinol [Zyloprim] 300 mg PO DAILYCM #30 tablet 04/05/15 Atorvastatin Calcium [Lipitor] 40 mg PO QHS #30 tablet 04/05/15 Metoprolol Tartrate [Lopressor (beta dixon)] 100 mg PO BID #60 tablet 04/05/15 Pioglitazone [Actos] 45 mg PO DAILY 09/19/17 Acetaminophen [Tylenol Tablet] 650 mg PO Q6H PRN PRN tablet 09/26/17 Ferrous Sulfate 325 mg PO BIDCM #60 tab 09/26/17 Furosemide [Lasix] 40 mg PO BID@1000,1800 #60 tab 09/26/17 Glimepiride [Amaryl] 4 mg PO BIDCM tablet 09/26/17 Insulin Detemir [Levemir FlexPen] 15 units SC BID #10 insuln.pen 09/26/17 Pen Needle, Diabetic [Pen Como] 1 ea MC BID #60 dis.needle 09/26/17 Prednisone 20 mg PO DAILY PRN #12 tab 09/26/17 Primary Care Physician: Kian Valdez III, MD [Primary Care Provider] - Please Follow Up With: Nikole Hanson DPM - call [phone] if questions When: Next [facility]; call to confirm appointment time Proposed Discharge Date: 10/09/17
--- NOTE | 2017-10-09 14:38 | PCM.IMDPSTOP ---
Problem List (1) Ulcer of foot with necrosis of muscle Status: Chronic (2) Ulcer of left lower extremity with fat layer exposed Status: Chronic (3) Type 2 diabetes mellitus with diabetic polyneuropathy Status: Chronic Immediate Post-Op Note Date of Procedure: 10/09/17 Primary Surgeon/Physician: Nikole Hanson DPM ux consultant: none Pre-Operative Diagnosis: chronic ulcer left plantar heel with resolved infection; exposed fascia/muscle. chronic ulcer left dorsal foot Post-Operative Diagnosis: chronic ulcer left plantar heel with resolved infection; exposed fascia/muscle. chronic ulcer left dorsal foot Surgery/Procedure Performed:: versajet debridement of plantar left heel and dorsal foot. application of advanced wound care product; amniofill and epicord of left foot Description of Surgical Findings:: hemostasis controlled no infection see detailed operative report. The patient tolerated the procedure and local anesthesia well. He was transported to the post operative waiting recovery area with vitals intact and vascular status intact to the surgical limb. Post operative and discharge orders were placed electronically. Estimated Blood Loss: <100 mL Specimen's removed: none Type of Anesthesia:: Local - 9 cc of 1:1 mix of 1% lidocaine plain and 0.5% marcaine plain preoperative local infiltration to plantar heel ulcer site - Admit VTE Documentation VTE Present on Admission: No VTE Mechan Device Prophylaxis: SCD's VTE Pharm Prophylaxis ordered?: Yes
--- NOTE | 2017-10-09 14:41 | OP.PN_ITS ---
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 chronic ulcer left dorsal foot Post-Operative Diagnosis: chronic ulcer left plantar heel with resolved infection; exposed fascia/muscle. chronic ulcer left dorsal foot Surgery/Procedure Performed:: versajet debridement of plantar left heel and dorsal foot. application of advanced wound care product; amniofill and epicord of left foot Description of Surgical Findings:: hemostasis controlled no infection see detailed operative report. The patient tolerated the procedure and local anesthesia well. He was transported to the post operative waiting recovery area with vitals intact and vascular status intact to the surgical limb. Post operative and discharge orders were placed electronically. Estimated Blood Loss: <100 mL Specimen's removed: none Type of Anesthesia:: Local - 9 cc of 1:1 mix of 1% lidocaine plain and 0.5% marcaine plain preoperative local infiltration to plantar heel ulcer site - Admit VTE Documentation VTE Present on Admission: No VTE Mechan Device Prophylaxis: SCD's VTE Pharm Prophylaxis ordered?: Yes
--- NOTE | 2017-10-09 14:41 | PCM.OPRPT ---
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 chronic ulcer left dorsal foot Post-Operative Diagnosis: chronic ulcer left plantar heel with resolved infection; exposed fascia/muscle. chronic ulcer left dorsal foot Surgery/Procedure Performed:: versajet debridement of plantar left heel. application of advanced wound care product; amniofill and epicord of left foot Description of Surgical Findings:: hemostasis: no tourniquet utilized materials: 3-0 prolene, 250 mL amniofill, one 2 x 3 cm epicord complications: none food safety specialist: none Type of Anesthesia:: Local - 9 cc of 1:1 mix of 1% lidocaine plain and 0.5% marcaine plain preoperative local infiltration to plantar heel ulcer site Specimen's removed: none Estimated Blood Loss (mL): <100 mL Description of Procedure: Indications: This 77 year old male with multiple comorobidities including diabetes, chronic kidney disease, obesity, coronary artery disease, hypertension, and hyperlipidemia continues to have left foot ulcer delayed healing. He was recently hospitalized and was treated for a foot infection with IV antibiotics and had a non invasive vascular study completed that confirms peripheral vascular disease. Vascular surgery however did not recommend acute intervention at this time. He has capillary fill time less than three seconds to the digits of the left foot and no current local or systemic illness. He had a previous MRI that was negative for bone infection. There has been a clinical concern for muscle infection that has resolved due to the exposed depth the heel ulcer and debridement findings. He has been undergoing a standard wound care treatment plan including offloading, daily wound care, nutritional supplementation, and routine debridements. The surgical indications, planned procedure, benefits, risks, complications were discussed in detail. He understands the risk and complications may include the following but are not limited to the following: infection, scar, pain, swelling,need for further surgery, delayed or non healing, or loss of limb, function or life. He understands and elects to proceed with this curative type procedure. The surgical consent and limb was signed. I answered his questions. I reviewed his last hospital [facility] and his preoperative diagnostic data including CBC, CMP, PT/INR. Procedure in detail: The patient was transported to the operating room via caret and placed on the operating room table in the supine position. No preoperative antibiotics were deemed necessary or provided today. A midcalf tourniquet was placed but not utilized. The preoperative local anesthetic was administered by myself as noted. No MAC or general anesthesia was provided. The left lower extremity was prepped and draped in the usual aseptic manner and surgery began in the following manner: Attention was first directed to the plantar left heel ulcer that measures approximately 1.8 x 2.0 x 1.8 cm with devitalized subcutaneous, fibrous, adipose, biofilm,slough and muscle tissue. This was thoroughly debrided with a versajet on setting 8 to excise devitalized subcutaneous and muscular tissue, biofilm, fibrous tissue and slough. The post debridement measurement was 2.3 x 2.4 x 2.4 cm. Pressure was applied for nearly 8 minutes to maintain hemostasis which was achieved. Next, 250 mL of amniofill was carefully packed into this healthy wound bed and this was further secured in place with epicord (one 2 x3 cm sheet) and was secured in place with simple 3-0 prolene sutures. This was further covered with adaptic. No vanessa necrosis or infection was noted today. Next, attention was directed to the foot dorsum and the wound was excisionally debrided with a versajet including this subcutaneous tissue. No infection, necrosis or deeper tissue structures were identified. The preoperative ulcer measured 3.1 x 2.3 x 0.2 cm and post debridement was 3.2 x 2.5 x 0.2 cm. He tolerated this well. Scant residual left over amniofill material was applied here but it did not cover a significant portion of the wound bed. Adaptic was applied. Brisk capillary fill was noted to all digits of the left foot and no pulsatile bleeding was noted. A post operative dressing was applied; secondary dressing included gauze, abdominal pad, kerlix, and YOSSI wraps. It is also noted he had a posterior leg cluster ulcer and adaptic and gauze was gently applied to this site during this application process. After procedure: The patient tolerated the procedure and anesthesia well. He was transported to the PACU with vitals stable and vascular status intact to the left lower extremity. He was advised to maintain a strict non weightbearing status to the left lower extremity and to keep his dressing clean, dry, and intact. He was [facility] or to call sooner if concerns or questions arise. To continue proper glycemic control and nutritional supplementation to optimize healing. I discussed his care plan with his and daughter; written recommendations were also provided. The goals of the surgery were also reviewed including timely wound healing and limb salvage. Discharge electronic orders were placed and he will go home later today. Nikole Hanson, [facility]
== END 2017-10-09 15:19 | disposition home or self-care (01) ==
LOC: SDC 11:20 → AC 11:22
PROVIDERS: Family Provider Family Medicine; PCP Family Medicine; Visit Provider Podiatrist
PROC: (CPT 11042; principal; 2017-10-09 12:45)
DX: L97.425 Non-pressure chronic ulcer of left heel and midfoot with muscle involvement without evidence of necrosis (principal); L97.522 Non-pressure chronic ulcer of other part of left foot with fat layer exposed; E11.42 Type 2 diabetes mellitus with diabetic polyneuropathy; I12.9 Hypertensive chronic kidney disease with stage 1 through stage 4 chronic kidney disease, or unspecified chronic kidney disease; E11.22 Type 2 diabetes mellitus with diabetic chronic kidney disease; N18.3 Chronic kidney disease, stage 3 (moderate); Z95.1 Presence of aortocoronary bypass graft; E78.5 Hyperlipidemia, unspecified; I25.10 Atherosclerotic heart disease of native coronary artery without angina pectoris; I25.2 Old myocardial infarction; I42.9 Cardiomyopathy, unspecified; I27.20 Pulmonary hypertension, unspecified; M10.9 Gout, unspecified; I73.9 Peripheral vascular disease, unspecified; E66.9 Obesity, unspecified; Z68.38 Body mass index [BMI] 38.0-38.9, adult; Z79.4 Long term (current) use of insulin; Z79.82 Long term (current) use of aspirin; Z79.899 Other long term (current) drug therapy; Z87.891 Personal history of nicotine dependence
CPT/HCPCS: 11042; 11043; 36416; 82962; 85610; 86850; 86900; J7120

== ENCOUNTER 2017-10-14 10:15 | Outpatient (RCR) | payer MEDICARE, SELFPAY ==
[2017-09-30 10:58] VITALS: BP 109/63; PULSE 82; RESP 18; TEMP 36.9; BMI 36.5
--- NOTE | 2017-09-30 12:32 | PCM.WC.PN ---
(1) Ulcer of left lower extremity with fat layer exposed Status: Chronic Current Visit: Yes Code(s): L97.922 - Non-pressure chronic ulcer of unspecified part of left lower leg with fat layer exposed (2) Type 2 diabetes mellitus with diabetic polyneuropathy Status: Chronic Current Visit: Yes Code(s): E11.42 - Type 2 diabetes mellitus with diabetic polyneuropathy (3) Localized edema Status: Chronic Current Visit: Yes Code(s): R60.0 - Localized edema (4) Chronic ulcer of left foot with fat layer exposed Status: Chronic Current Visit: Yes Code(s): L97.522 - Non-pressure chronic ulcer of other part of left foot with fat layer exposed (5) PAD (peripheral artery disease) Status: Chronic Current Visit: Yes Code(s): I73.9 - Peripheral vascular disease, unspecified Type of Wound Date of Service: 09/30/17 Chief Complaint: Left heel and left leg ulcers. New left toe ulcer History of Wound: This 77-year-old male with multiple comorbidities is following up from his recent inpatient hospital admission for left lower extremity ulcers and infection. He is completed antibiotic course. He is now at home and his daughter is helping with his dressing changes. He has been trying to put pressure on his forefoot to avoid walking on his heel wound. He denies redness or odor. He denies fever, chill, nausea, vomiting. He denies claudication, chest pain, shortness of breath, calf pain. He has continued swelling to both lower extremities. He did have vascular studies completed and additional imaging studies of the left lower extremity while in the hospital including x-ray and MRI. Past medical history: Congestive heart failure, history of myocardial infarction, type 1 diabetes, history of gout, hyperlipidemia, hypertension, coronary artery disease, status post bypass, stage III chronic kidney disease. Family history: Nonpertinent reported. Medications: Aspirin, furosemide, glimepiride, metformin, allopurinol, atorvastatin, lisinopril, metoprolol tartrate, Actos. Allergies: No known drug allergies. Surgical history coronary bypass surgery, hernia repair. Social history: Lives with spouse. Former smoker, denies alcohol or drug use. Review of systems: As per history of present illness Progress of Wound: Stabilized - Physical Exam Vital Signs Temp Pulse Resp BP 98.4 F 82 18 109/63 09/30/17 10:58 09/30/17 10:58 09/30/17 10:58 09/30/17 10:58 General: Alert, Oriented x3, Cooperative Extremities: No cyanosis, Capillary Refill Less than 3 Seconds, No Calf Tenderness - Negative Randi and Maier sign bilateral, Diminished Peripheral Pulses, Edema - Bilateral lower extremity Skin: Ulcer/ Wound - No purulence, no erythema, streaking, no odor left lower extremity., - - The plantar heel ulcer does extend into the calcaneus fat pad. There is resolved necrosis and devitalized tissue and this is undermining. There is no direct probe to bone. Wound Measurements and Assessment WC - Nurse 1 - General Ulcer Measurement Start: 09/30/17 10:47 Freq: Status: Active Protocol: Activity Type Activity Date Activity User E-Sign Co-Sign Detail Recorded Client Recorded Date Recorded By Document 09/30/17 10:58 DL [id number] 09/30/17 11:24 DL 09/30/17 10:58 Wound Center Nurse 1 [Ulcer Assessment] #5 L 2nd toe -Current Size (cm) - Length 1.3 -Current Size (cm) - Width 1.9 -Current Size (cm) - Depth 0.1 -Total Square Cm 2.47 -Photo Taken Yes -Classification - [place] Grading ( Grade 1 Diabetic Ulcer) -Exudate Amt Small (1-33%) -Exudate Type Sanguineous -Wound Margin Flat & Intact -Granulation Amt Small (1-33%) -Granulation Quality [place] -Necrosis Amt None Present (0 %) -Structure Exposed N/A -Texture (Irma-wound Skin Appearance) No Abnormality -Moisture (Irma-wound Skin Appearance No Abnormality ) -Color (Irma-wound Skin Appearance) No Abnormality -Temperature (Irma-wound Skin No Abnormality Appearance) (Pt Warm) -Ulcer Cleansing Wound Cleanser -Foul Odor after Cleansing No -Anesthetic Used 4% Lidocaine Solution #4 L Ant Ankle -Current Size (cm) - Length 0.2 -Current Size (cm) - Width 0.2 -Current Size (cm) - Depth 0.2 -Total Square Cm 0.04 -Photo Taken Yes -Exudate Amt None Present (0 %) -Wound Margin Flat & Intact -Granulation Amt Small (1-33%) -Granulation Quality [place] -Slough/Fibrin Yes -Necrosis Amt Small (1-33%) -Necrotic Tissue Type Adherent Slough -Structure Exposed N/A -Texture (Irma-wound Skin Appearance) No Abnormality -Moisture (Irma-wound Skin Appearance No Abnormality ) -Color (Irma-wound Skin Appearance) No Abnormality -Temperature (Irma-wound Skin No Abnormality Appearance) (Pt Warm) -Ulcer Cleansing Wound Cleanser -Foul Odor after Cleansing No -Anesthetic Used 4% Lidocaine Solution #3 L Lower Calf Cluster -Current Size (cm) - Length 4.3 -Current Size (cm) - Width 2.4 -Current Size (cm) - Depth 0.1 -Total Square Cm 10.32 -Photo Taken Yes -Exudate Amt Small (1-33%) -Exudate Type Serosanguineous -Wound Margin Indistinct, Non -Visible -Granulation Amt Medium (34-66%) -Granulation Quality [place] -Necrosis Amt Medium (34-66%) -Necrotic Tissue Type Adherent Slough -Structure Exposed N/A -Texture (Irma-wound Skin Appearance) Scarring -Moisture (Irma-wound Skin Appearance No Abnormality ) -Color (Irma-wound Skin Appearance) Hemosiderin Staining -Temperature (Irma-wound Skin No Abnormality Appearance) (Pt Warm) -Ulcer Cleansing Wound Cleanser -Foul Odor after Cleansing No -Anesthetic Used 4% Lidocaine Solution #2 L Heel -Current Size (cm) - Length 1.9 -Current Size (cm) - Width 2.3 -Current Size (cm) - Depth 0.4 -Total Square Cm 4.37 -Photo Taken Yes -Classification - [place] Grading ( Grade 3 Diabetic Ulcer) -Exudate Amt Small (1-33%) -Exudate Type Serosanguineous -Wound Margin Distinct, Outline Attached -Granulation Amt None Present (0 %) -Necrosis Amt Large (67-100%) -Necrotic Tissue Type Adherent Slough -Structure Exposed N/A -Texture (Irma-wound Skin Appearance) No Abnormality -Moisture (Irma-wound Skin Appearance No Abnormality ) -Color (Irma-wound Skin Appearance) No Abnormality -Temperature (Irma-wound Skin No Abnormality Appearance) (Pt Warm) -Ulcer Cleansing Wound Cleanser -Foul Odor after Cleansing No -Anesthetic Used 4% Lidocaine Solution #1 L Dorsal -Current Size (cm) - Length 3.5 -Current Size (cm) - Width 2.5 -Current Size (cm) - Depth 0.2 -Total Square Cm 8.75 -Photo Taken Yes -Classification - Thickness Full Thickness without Exposed Support Structure -Classification - [place] Grading ( Grade 3 Diabetic Ulcer) -Exudate Amt Small (1-33%) -Exudate Type Serosanguineous -Wound Margin Distinct, Outline Attached -Granulation Amt Small (1-33%) -Granulation Quality [place] -Necrosis Amt Large (67-100%) -Necrotic Tissue Type Adherent Slough -Structure Exposed N/A -Texture (Irma-wound Skin Appearance) No Abnormality -Moisture (Irma-wound Skin Appearance No Abnormality ) -Color (Irma-wound Skin Appearance) Erythema Hemosiderin Staining Rubor -Temperature (Irma-wound Skin No Abnormality Appearance) (Pt Warm) -Ulcer Cleansing Wound Cleanser -Foul Odor after Cleansing No -Anesthetic Used 4% Lidocaine Solution [Edema Assessment] -Right Calf (cm) 43.5 -Right Ankle (cm) 26 -Left Calf (cm) 41.5 -Left Ankle (cm) 27.7 WC - Nurse 2 - General Ulcer CM Notes Start: 09/30/17 10:47 Freq: Status: Active Protocol: Activity Type Activity Date Activity User E-Sign Co-Sign Detail Recorded Client Recorded Date Recorded By Document 09/30/17 11:56 [id number] 09/30/17 12:03 RAYMOND 09/30/17 11:56 Wound Center Nurse 2 [Procedure/Treatment] #5 L 2nd toe -Time 11:56 -Correct Patient Yes -Correct Side, Site, Position Yes -Correct Procedure Yes -Procedure Performed Yes -Type of Procedure Debridement -Clinical Debridement Subcutaneous -Post Debridement Size (cm) - Length 1.3 -Post Debridement Size (cm) - Width 2 -Post Debridement Size (cm) - Depth 0.1 -Total Square Cm 2.6 -Wound/Ulcer Outcome Not Healed -Ulcer Cleansing Rinsed/ Irrigated with Saline -Foul Odor after Cleansing No -Bioengineered Tissue No -Bleeding Controlled with Pressure -Treatment Response Procedure Tolerated Well #4 L Ant Ankle -Time 11:57 -Correct Patient Yes -Correct Side, Site, Position Yes -Correct Procedure Yes -Procedure Performed Yes -Type of Procedure Debridement -Clinical Debridement Subcutaneous -Post Debridement Size (cm) - Length 0.3 -Post Debridement Size (cm) - Width 0.3 -Post Debridement Size (cm) - Depth 0.2 -Total Square Cm 0.09 -Wound/Ulcer Outcome Not Healed -Ulcer Cleansing Rinsed/ Irrigated with Saline -Foul Odor after Cleansing No -Bioengineered Tissue No -Bleeding Controlled with Pressure -Treatment Response Procedure Tolerated Well #3 L Lower Calf Cluster -Time 11:57 -Correct Patient Yes -Correct Side, Site, Position Yes -Correct Procedure Yes -Procedure Performed Yes -Type of Procedure Debridement -Clinical Debridement Subcutaneous -Post Debridement Size (cm) - Length 4.4 -Post Debridement Size (cm) - Width 2.5 -Post Debridement Size (cm) - Depth 0.1 -Total Square Cm 11.00 -Wound/Ulcer Outcome Not Healed -Ulcer Cleansing Rinsed/ Irrigated with Saline -Foul Odor after Cleansing No -Bioengineered Tissue No -Bleeding Controlled with Pressure -Treatment Response Procedure Tolerated Well #2 L Heel -Time 11:57 -Correct Patient Yes -Correct Side, Site, Position Yes -Correct Procedure Yes -Procedure Performed Yes -Type of Procedure Debridement -Clinical Debridement Subcutaneous -Post Debridement Size (cm) - Length 2 -Post Debridement Size (cm) - Width 2.3 -Post Debridement Size (cm) - Depth 1.8 -Total Square Cm 4.6 -Wound/Ulcer Outcome Not Healed -Ulcer Cleansing Rinsed/ Irrigated with Saline -Foul Odor after Cleansing No -Bioengineered Tissue No -Bleeding Controlled with Pressure -Treatment Response Procedure Tolerated Well #1 L Dorsal -Time 11:58 -Correct Patient Yes -Correct Side, Site, Position Yes -Correct Procedure Yes -Procedure Performed Yes -Type of Procedure Debridement -Clinical Debridement Subcutaneous -Post Debridement Size (cm) - Length 3.5 -Post Debridement Size (cm) - Width 2.6 -Post Debridement Size (cm) - Depth 0.2 -Total Square Cm 9.10 -Wound/Ulcer Outcome Not Healed -Ulcer Cleansing Rinsed/ Irrigated with Saline -Foul Odor after Cleansing No -Bioengineered Tissue No -Bleeding Controlled with Pressure -Treatment Response Procedure Tolerated Well [See Physician Procedure note for Specifics] Pain Scale: 0-10 Numeric [Pain] -Is Patient Pain Free? Yes Musculoskeletal: No Tenderness to Palpation of Joints or Extremities, Muscle Wasting, Tenderness - Pain with ulcer debridement noted left lower extremity, - - Dorsal contraction lesser toes left foot. No crepitus on palpation Neurological: - - Lack of epicritic sensation light touch noted left lower extremity Psych/Mental Status: Normal Affect, Appropriate Debridement Note Post-Debridement Measurements/Treatment WC - Nurse 2 - General Ulcer CM Notes Start: 09/30/17 10:47 Freq: Status: Active Protocol: Activity Type Activity Date Activity User E-Sign Co-Sign Detail Recorded Client Recorded Date Recorded By Document 09/30/17 11:56 [email or web address] [id number] 09/30/17 12:03 RAYMOND 09/30/17 11:56 Wound Center Nurse 2 #5 L 2nd toe -Time 11:56 -Correct Patient Yes -Correct Side, Site, Position Yes -Correct Procedure Yes -Procedure Performed Yes -Type of Procedure Debridement -Clinical Debridement Subcutaneous -Post Debridement Size (cm) - Length 1.3 -Post Debridement Size (cm) - Width 2 -Post Debridement Size (cm) - Depth 0.1 -Total Square Cm 2.6 -Wound/Ulcer Outcome Not Healed -Ulcer Cleansing Rinsed/ Irrigated with Saline -Foul Odor after Cleansing No -Bioengineered Tissue No -Bleeding Controlled with Pressure -Treatment Response Procedure Tolerated Well #4 L Ant Ankle -Time 11:57 -Correct Patient Yes -Correct Side, Site, Position Yes -Correct Procedure Yes -Procedure Performed Yes -Type of Procedure Debridement -Clinical Debridement Subcutaneous -Post Debridement Size (cm) - Length 0.3 -Post Debridement Size (cm) - Width 0.3 -Post Debridement Size (cm) - Depth 0.2 -Total Square Cm 0.09 -Wound/Ulcer Outcome Not Healed -Ulcer Cleansing Rinsed/ Irrigated with Saline -Foul Odor after Cleansing No -Bioengineered Tissue No -Bleeding Controlled with Pressure -Treatment Response Procedure Tolerated Well #3 L Lower Calf Cluster -Time 11:57 -Correct Patient Yes -Correct Side, Site, Position Yes -Correct Procedure Yes -Procedure Performed Yes -Type of Procedure Debridement -Clinical Debridement Subcutaneous -Post Debridement Size (cm) - Length 4.4 -Post Debridement Size (cm) - Width 2.5 -Post Debridement Size (cm) - Depth 0.1 -Total Square Cm 11.00 -Wound/Ulcer Outcome Not Healed -Ulcer Cleansing Rinsed/ Irrigated with Saline -Foul Odor after Cleansing No -Bioengineered Tissue No -Bleeding Controlled with Pressure -Treatment Response Procedure Tolerated Well #2 L Heel -Time 11:57 -Correct Patient Yes -Correct Side, Site, Position Yes -Correct Procedure Yes -Procedure Performed Yes -Type of Procedure Debridement -Clinical Debridement Subcutaneous -Post Debridement Size (cm) - Length 2 -Post Debridement Size (cm) - Width 2.3 -Post Debridement Size (cm) - Depth 1.8 -Total Square Cm 4.6 -Wound/Ulcer Outcome Not Healed -Ulcer Cleansing Rinsed/ Irrigated with Saline -Foul Odor after Cleansing No -Bioengineered Tissue No -Bleeding Controlled with Pressure -Treatment Response Procedure Tolerated Well #1 L Dorsal -Time 11:58 -Correct Patient Yes -Correct Side, Site, Position Yes -Correct Procedure Yes -Procedure Performed Yes -Type of Procedure Debridement -Clinical Debridement Subcutaneous -Post Debridement Size (cm) - Length 3.5 -Post Debridement Size (cm) - Width 2.6 -Post Debridement Size (cm) - Depth 0.2 -Total Square Cm 9.10 -Wound/Ulcer Outcome Not Healed -Ulcer Cleansing Rinsed/ Irrigated with Saline -Foul Odor after Cleansing No -Bioengineered Tissue No -Bleeding Controlled with Pressure -Treatment Response Procedure Tolerated Well Pain Scale: 0-10 Numeric Is Patient Pain Free? Yes Wound debrided: plantar heel Laterality: Left Wound Grade/Stage: grade 1 Type of Debridement: Excisional debridement Anesthesia Used: 4% Lidocaine Solution Depth: in the subcutaneous layer Percentage of wound debrided: 100 Instrument Used: 5mm curette Tissue Removed: fibrous, devitalized subcutaneous, biofilm, slough Severity: Fat Layer Exposed Amount of bleeding with debridement: Mild Bleeding Controlled with: Pressure Patient tolerated procedure well - Additional Wound Wound debrided: posterior leg Laterality: Left - g Wound Grade/Stage: grade 1 Type of Debridement: Excisional debridement Anesthesia Used: 4% Lidocaine Solution Depth: in the subcutaneous layer Percentage of wound debrided: 100 Instrument Used: 5mm curette Tissue Removed: fibrous, devitalized subcutaneous, biofilm, slough Severity: Fat Layer Exposed Amount of bleeding with debridement: Mild Bleeding Controlled with: Pressure Patient tolerated procedure: Patient tolerated procedure well - Additional Wound Wound debrided: medial ankle Laterality: Left Wound Grade/Stage: grade 1 Type of Debridement: Excisional debridement Anesthesia Used: 4% Lidocaine Solution Depth: in the subcutaneous layer Percentage of wound debrided: 100 Instrument Used: 5mm curette Tissue Removed: fibrous, devitalized subcutaneous, biofilm, slough Severity: Fat Layer Exposed Amount of bleeding with debridement: Mild Bleeding Controlled with: Pressure Patient tolerated procedure: Patient tolerated procedure well - Additional Wound Wound debrided: distal 2nd toe Laterality: Left Wound Grade/Stage: grade 1 Type of Debridement: Excisional debridement Anesthesia Used: 4% Lidocaine Solution Depth: in the subcutaneous layer Percentage of wound debrided: 100 Instrument Used: 5mm curette Tissue Removed: fibrous, devitalized subcutaneous, biofilm, slough Severity: Fat Layer Exposed Amount of bleeding with debridement: Mild Bleeding Controlled with: Pressure Patient tolerated procedure: Patient tolerated procedure well Assessment/Plan Active Problems Ulcer of left lower extremity with fat layer exposed (Chronic) Type 2 diabetes mellitus with diabetic polyneuropathy (Chronic) Localized edema (Chronic) Chronic ulcer of left foot with fat layer exposed (Chronic) PAD (peripheral artery disease) (Chronic) Assessment: Plantar left heel ulcer. Posterior left leg ulcer. Medial left ankle ulcer. Second distal toe ulcer. Bilateral lower extremity edema. Peripheral vascular disease. Diabetes with neuropathy. Malnutrition. Delayed healing. Gait impairment Plan: I reviewed and discussed his case and care plan today. I recommend application of Santyl to wounds daily and this was applied today and the preauthorization process will be initiated. I do however recommend wet-to-dry gauze packing to the plantar left heel to help alleviate some of his drainage and granulation of this heel cavity. I recommend going to the operating room for surgical versa jet debridement application of advanced wound care product, Amniofill and epi cord to left heel to help optimize a timely healing process. Medical clearance for this local and MAC anesthesia type procedure and preauthorization for advanced wound care product application will need to be completed prior to going to the same-day surgery. This is medically necessary for limb salvage and wound healing. A wound VAC application will also be considered. The family is amenable to proceed at this time as is the patient. To offload these wounds sites by controlling compression. To continue with double Tubigrip suture applied today. To elevate the limbs at rest. To avoid idle standing or sitting in the dependent position. To offload the heel by wearing a surgical shoe and placing more pressure on the forefoot. This was dispensed today. We discussed other offloading mechanisms such as a cam walker will hold off on this time because of his leg wounds and his gait instability. To remain nonweightbearing and use a walker. He was advised to continue with nutritional supplementation; he took Rito during his most recent hospital admission. He responded well to IV antibiotics while in house and he was reassured he does not appear to have any local or systemic signs of illness at this time. To monitor closely. His previous x-rays and MRI did not demonstrate bone infection. Serial labs will be followed. He understands he is at risk for limb loss and his wound healing process will likely be staged and complex. The goals of this treatment plan were reviewed. I answered his questions. He is advised to return to the wound care center 1 week or call sooner if he has any questions or concerns.
[2017-10-07 08:11] VITALS: BP 130/67; PULSE 83; RESP 16; TEMP 35.3; BMI 36.5
--- NOTE | 2017-10-07 10:08 | PN.PCM_ITS ---
(1) Ulcer of left lower extremity with fat layer exposed Status: Chronic Current Visit: Yes Code(s): L97.922 - Non-pressure chronic ulcer of unspecified part of left lower leg with fat layer exposed (2) Type 2 diabetes mellitus with diabetic polyneuropathy Status: Chronic Current Visit: Yes Code(s): E11.42 - Type 2 diabetes mellitus with diabetic polyneuropathy (3) Localized edema Status: Chronic Current Visit: Yes Code(s): R60.0 - Localized edema (4) Chronic ulcer of left foot with fat layer exposed Status: Chronic Current Visit: Yes Code(s): L97.522 - Non-pressure chronic ulcer of other part of left foot with fat layer exposed (5) PAD (peripheral artery disease) Status: Chronic Current Visit: Yes Code(s): I73.9 - Peripheral vascular disease, unspecified Type of Wound Date of Service: 10/07/17 Chief Complaint: Left heel, toe, left leg ulcers History of Wound: This 77-year-old male with multiple comorbidities is following up from his recent inpatient hospital admission for left lower extremity ulcers and infection. He has completed an antibiotic course. He wears a surgical shoe. He denies redness or odor. He denies fever, chill, nausea, vomiting. He denies claudication, chest pain, shortness of breath, calf pain. He has continued swelling to both lower extremities. He did have vascular studies completed and additional imaging studies of the left lower extremity while in the hospital including x-ray and MRI. He is with his daughter and today. His daughter is a nurse and asked about hyperbaric oxygen therapy options. Progress of Wound: stable - Physical Exam Vital Signs Temp Pulse Resp BP 95.5 F L 83 16 130/67 H 10/07/17 08:11 10/07/17 08:11 10/07/17 08:11 10/07/17 08:11 General: Alert, Oriented x3, Cooperative HEENT: Atraumatic Extremities: No cyanosis, Capillary Refill Less than 3 Seconds, No Calf Tenderness - Negative Randi and Maier signs bilateral, Diminished Peripheral Pulses, Edema - Bilateral lower extremities Skin: Ulcer/ Wound - No purulence, no erythema, streaking, no odor, no infection bilateral. The plantar heel has adipose and a this extends almost 2 cm deep into the foot with presumed muscular and fascial involvement. There is no direct probe to bone. The dorsal left foot ulcer is fibrous and dry. The toe ulcer (2) has pale granular and fibrous base. The leg ulcer is also pale granular with fibrous tissue., - - The peripheral skin is atrophic and no hairs noted left lower extremity Wound Measurements and Assessment WC - Nurse 1 - General Ulcer Measurement Start: 09/30/17 10:47 Freq: Status: Active Protocol: Activity Type Activity Date Activity User E-Sign Co-Sign Detail Recorded Client Recorded Date Recorded By Document 10/07/17 08:11 RAYMOND [id number] 10/07/17 08:20 RAYMOND 10/07/17 08:11 Wound Center Nurse 1 [Ulcer Assessment] #5 L 2nd toe -Combined with other wound No -Current Size (cm) - Length 1.1 -Current Size (cm) - Width 1.8 -Current Size (cm) - Depth 0.1 -Total Square Cm 1.98 -Photo Taken No -Epithelialization Small 1-33% -Tunneling No -Undermining/Tunneling No -Circular Undermining No -Exudate Amt Small (1-33%) -Exudate Type Serosanguineous -Wound Margin Flat & Intact -Granulation Amt Large (67-100%) -Granulation Quality Red -Slough/Fibrin Yes -Necrosis Amt Small (1-33%) -Necrotic Tissue Type Adherent Slough -Structure Exposed N/A -Texture (Irma-wound Skin Appearance) Assessed Localized Edema -Moisture (Irma-wound Skin Appearance Assessed ) Dry/Scaly -Color (Irma-wound Skin Appearance) Assessed -Temperature (Irma-wound Skin No Abnormality Appearance) (Pt Warm) -Tenderness on Palpation (Irma-wound No Skin Appearance) -Ulcer Cleansing Rinsed/ Irrigated with Saline -Foul Odor after Cleansing No -Anesthetic Used 4% Lidocaine Solution #4 L Ant Ankle -Combined with other wound No -Current Size (cm) - Length 0.4 -Current Size (cm) - Width 0.3 -Current Size (cm) - Depth 0.1 -Total Square Cm 0.12 -Photo Taken No -Epithelialization Large 67-100% -Tunneling No -Undermining/Tunneling No -Circular Undermining No -Exudate Amt None Present (0 %) -Wound Margin Flat & Intact -Granulation Amt None Present (0 %) -Slough/Fibrin Yes -Necrosis Amt Large (67-100%) -Necrotic Tissue Type Adherent Slough -Structure Exposed N/A -Texture (Irma-wound Skin Appearance) Assessed Localized Edema -Moisture (Irma-wound Skin Appearance Assessed ) Dry/Scaly -Color (Irma-wound Skin Appearance) Assessed -Temperature (Irma-wound Skin No Abnormality Appearance) (Pt Warm) -Tenderness on Palpation (Irma-wound No Skin Appearance) -Ulcer Cleansing Rinsed/ Irrigated with Saline -Foul Odor after Cleansing No -Anesthetic Used 4% Lidocaine Solution #3 L Lower Calf Cluster -Combined with other wound No -Current Size (cm) - Length 3.5 -Current Size (cm) - Width 1.0 -Current Size (cm) - Depth 0.1 -Total Square Cm 3.50 -Photo Taken No -Epithelialization Medium 34-66% -Tunneling No -Undermining/Tunneling No -Circular Undermining No -Exudate Amt None Present (0 %) -Wound Margin Flat & Intact -Granulation Amt Small (1-33%) -Granulation Quality [place] -Slough/Fibrin Yes -Necrosis Amt Large (67-100%) -Necrotic Tissue Type Adherent Slough -Structure Exposed N/A -Texture (Irma-wound Skin Appearance) Assessed Localized Edema -Moisture (Irma-wound Skin Appearance Assessed ) Dry/Scaly -Color (Irma-wound Skin Appearance) Assessed -Temperature (Irma-wound Skin No Abnormality Appearance) (Pt Warm) -Tenderness on Palpation (Irma-wound No Skin Appearance) -Ulcer Cleansing Wound Cleanser -Foul Odor after Cleansing No -Anesthetic Used 4% Lidocaine Solution #2 L Heel -Combined with other wound No -Current Size (cm) - Length 1.4 -Current Size (cm) - Width 1.8 -Current Size (cm) - Depth 2.0 -Total Square Cm 2.52 -Photo Taken No -Epithelialization None Present -Tunneling No -Undermining/Tunneling No -Circular Undermining No -Exudate Amt None Present (0 %) -Wound Margin Flat & Intact -Granulation Amt None Present (0 %) -Slough/Fibrin Yes -Necrosis Amt Large (67-100%) -Necrotic Tissue Type Adherent Slough -Structure Exposed N/A -Texture (Irma-wound Skin Appearance) Assessed Localized Edema -Moisture (Irma-wound Skin Appearance Assessed ) Dry/Scaly -Color (Irma-wound Skin Appearance) Assessed -Temperature (Irma-wound Skin No Abnormality Appearance) (Pt Warm) -Tenderness on Palpation (Irma-wound No Skin Appearance) -Ulcer Cleansing Wound Cleanser -Foul Odor after Cleansing No -Anesthetic Used 4% Lidocaine Solution #1 L Dorsal -Combined with other wound No -Current Size (cm) - Length 3.1 -Current Size (cm) - Width 2.3 -Current Size (cm) - Depth 0.2 -Total Square Cm 7.13 -Photo Taken No -Epithelialization Small 1-33% -Tunneling No -Undermining/Tunneling No -Circular Undermining No -Exudate Amt Small (1-33%) -Exudate Type Serosanguineous -Wound Margin Flat & Intact -Granulation Amt Small (1-33%) -Granulation Quality [place] -Slough/Fibrin Yes -Necrosis Amt Large (67-100%) -Necrotic Tissue Type Adherent Slough -Structure Exposed N/A -Texture (Irma-wound Skin Appearance) Assessed Localized Edema -Moisture (Irma-wound Skin Appearance Assessed ) Dry/Scaly -Color (Irma-wound Skin Appearance) Assessed -Temperature (Irma-wound Skin No Abnormality Appearance) (Pt Warm) -Tenderness on Palpation (Irma-wound No Skin Appearance) -Ulcer Cleansing Rinsed/ Irrigated with Saline -Foul Odor after Cleansing No -Anesthetic Used 4% Lidocaine Solution [Edema Assessment] -Lower Limb Edema Present Yes -Left Calf (cm) 45.3 -Left Ankle (cm) 25.3 WC - Nurse 2 - General Ulcer CM Notes Start: 09/30/17 10:47 Freq: Status: Active Protocol: Activity Type Activity Date Activity User E-Sign Co-Sign Detail Recorded Client Recorded Date Recorded By Document 10/07/17 08:42 RAYMOND [id number] 10/07/17 08:47 RAYMOND 10/07/17 08:42 Wound Center Nurse 2 [Procedure/Treatment] #5 L 2nd toe -Time 08:43 -Correct Patient Yes -Correct Side, Site, Position Yes -Correct Procedure Yes -Procedure Performed Yes -Type of Procedure Debridement -Clinical Debridement Subcutaneous -Post Debridement Size (cm) - Length 1.2 -Post Debridement Size (cm) - Width 1.8 -Post Debridement Size (cm) - Depth 0.1 -Total Square Cm 2.16 -Wound/Ulcer Outcome Not Healed -Ulcer Cleansing Rinsed/ Irrigated with Saline -Foul Odor after Cleansing No -Bioengineered Tissue No -Bleeding Controlled with Pressure -Treatment Response Procedure Tolerated Well #4 L Ant Ankle -Time 08:44 -Correct Patient Yes -Correct Side, Site, Position Yes -Correct Procedure Yes -Procedure Performed Yes -Type of Procedure Debridement -Clinical Debridement Subcutaneous -Post Debridement Size (cm) - Length 0.4 -Post Debridement Size (cm) - Width 0.3 -Post Debridement Size (cm) - Depth 0.1 -Total Square Cm 0.12 -Wound/Ulcer Outcome Not Healed -Ulcer Cleansing Rinsed/ Irrigated with Saline -Foul Odor after Cleansing No -Bioengineered Tissue No -Bleeding Controlled with Pressure -Treatment Response Procedure Tolerated Well #3 L Lower Calf Cluster -Time 08:46 -Correct Patient Yes -Correct Side, Site, Position Yes -Correct Procedure Yes -Procedure Performed Yes -Type of Procedure Debridement -Clinical Debridement Subcutaneous -Post Debridement Size (cm) - Length 3.5 -Post Debridement Size (cm) - Width 1.1 -Post Debridement Size (cm) - Depth 0.1 -Total Square Cm 3.85 -Wound/Ulcer Outcome Not Healed -Ulcer Cleansing Rinsed/ Irrigated with Saline -Foul Odor after Cleansing No -Bioengineered Tissue No -Bleeding Controlled with Pressure -Treatment Response Procedure Tolerated Well #2 L Heel -Time 08:43 -Correct Patient Yes -Correct Side, Site, Position Yes -Correct Procedure Yes -Procedure Performed Yes -Type of Procedure Debridement -Clinical Debridement Subcutaneous -Post Debridement Size (cm) - Length 1.5 -Post Debridement Size (cm) - Width 1.8 -Post Debridement Size (cm) - Depth 2.2 -Total Square Cm 2.70 -Wound/Ulcer Outcome Not Healed -Ulcer Cleansing Rinsed/ Irrigated with Saline -Foul Odor after Cleansing No -Bioengineered Tissue No -Bleeding Controlled with Pressure -Treatment Response Procedure Tolerated Well #1 L Dorsal -Time 08:45 -Correct Patient Yes -Correct Side, Site, Position Yes -Correct Procedure Yes -Procedure Performed Yes -Type of Procedure Debridement -Clinical Debridement Subcutaneous -Post Debridement Size (cm) - Length 1.2 -Post Debridement Size (cm) - Width 1.8 -Post Debridement Size (cm) - Depth 0.1 -Total Square Cm 2.16 -Wound/Ulcer Outcome Not Healed -Ulcer Cleansing Rinsed/ Irrigated with Saline -Foul Odor after Cleansing No -Bioengineered Tissue No -Bleeding Controlled with Pressure -Treatment Response Procedure Tolerated Well [See Physician Procedure note for Specifics] Pain Scale: 0-10 Numeric [Pain] -Is Patient Pain Free? Yes Musculoskeletal: No Tenderness to Palpation of Joints or Extremities, Muscle Wasting Neurological: - - Lack of epicritic sensation light touch bilateral Psych/Mental Status: Normal Affect, Appropriate Debridement Note Post-Debridement Measurements/Treatment WC - Nurse 2 - General Ulcer CM Notes Start: 09/30/17 10:47 Freq: Status: Active Protocol: Activity Type Activity Date Activity User E-Sign Co-Sign Detail Recorded Client Recorded Date Recorded By Document 09/30/17 11:56 [id number] 09/30/17 12:03 Document 10/07/17 08:42 [id number] 10/07/17 08:47 09/30/17 10/07/17 11:56 08:42 Wound Center Nurse 2 #5 L 2nd toe -Time 11:56 08:43 -Correct Patient Yes Yes -Correct Side, Site, Position Yes Yes -Correct Procedure Yes Yes -Procedure Performed Yes Yes -Type of Procedure Debridement Debridement -Clinical Debridement Subcutaneous Subcutaneous -Post Debridement Size (cm) - Length 1.3 1.2 -Post Debridement Size (cm) - Width 2 1.8 -Post Debridement Size (cm) - Depth 0.1 0.1 -Total Square Cm 2.6 2.16 -Wound/Ulcer Outcome Not Healed Not Healed -Ulcer Cleansing Rinsed/ Rinsed/ Irrigated with Irrigated with Saline Saline -Foul Odor after Cleansing No No -Bioengineered Tissue No No -Bleeding Controlled with Pressure Pressure -Treatment Response Procedure Procedure Tolerated Well Tolerated Well #4 L Ant Ankle -Time 11:57 08:44 -Correct Patient Yes Yes -Correct Side, Site, Position Yes Yes -Correct Procedure Yes Yes -Procedure Performed Yes Yes -Type of Procedure Debridement Debridement -Clinical Debridement Subcutaneous Subcutaneous -Post Debridement Size (cm) - Length 0.3 0.4 -Post Debridement Size (cm) - Width 0.3 0.3 -Post Debridement Size (cm) - Depth 0.2 0.1 -Total Square Cm 0.09 0.12 -Wound/Ulcer Outcome Not Healed Not Healed -Ulcer Cleansing Rinsed/ Rinsed/ Irrigated with Irrigated with Saline Saline -Foul Odor after Cleansing No No -Bioengineered Tissue No No -Bleeding Controlled with Pressure Pressure -Treatment Response Procedure Procedure Tolerated Well Tolerated Well #3 L Lower Calf Cluster -Time 11:57 08:46 -Correct Patient Yes Yes -Correct Side, Site, Position Yes Yes -Correct Procedure Yes Yes -Procedure Performed Yes Yes -Type of Procedure Debridement Debridement -Clinical Debridement Subcutaneous Subcutaneous -Post Debridement Size (cm) - Length 4.4 3.5 -Post Debridement Size (cm) - Width 2.5 1.1 -Post Debridement Size (cm) - Depth 0.1 0.1 -Total Square Cm 11.00 3.85 -Wound/Ulcer Outcome Not Healed Not Healed -Ulcer Cleansing Rinsed/ Rinsed/ Irrigated with Irrigated with Saline Saline -Foul Odor after Cleansing No No -Bioengineered Tissue No No -Bleeding Controlled with Pressure Pressure -Treatment Response Procedure Procedure Tolerated Well Tolerated Well #2 L Heel -Time 11:57 08:43 -Correct Patient Yes Yes -Correct Side, Site, Position Yes Yes -Correct Procedure Yes Yes -Procedure Performed Yes Yes -Type of Procedure Debridement Debridement -Clinical Debridement Subcutaneous Subcutaneous -Post Debridement Size (cm) - Length 2 1.5 -Post Debridement Size (cm) - Width 2.3 1.8 -Post Debridement Size (cm) - Depth 1.8 2.2 -Total Square Cm 4.6 2.70 -Wound/Ulcer Outcome Not Healed Not Healed -Ulcer Cleansing Rinsed/ Rinsed/ Irrigated with Irrigated with Saline Saline -Foul Odor after Cleansing No No -Bioengineered Tissue No No -Bleeding Controlled with Pressure Pressure -Treatment Response Procedure Procedure Tolerated Well Tolerated Well #1 L Dorsal -Time 11:58 08:45 -Correct Patient Yes Yes -Correct Side, Site, Position Yes Yes -Correct Procedure Yes Yes -Procedure Performed Yes Yes -Type of Procedure Debridement Debridement -Clinical Debridement Subcutaneous Subcutaneous -Post Debridement Size (cm) - Length 3.5 1.2 -Post Debridement Size (cm) - Width 2.6 1.8 -Post Debridement Size (cm) - Depth 0.2 0.1 -Total Square Cm 9.10 2.16 -Wound/Ulcer Outcome Not Healed Not Healed -Ulcer Cleansing Rinsed/ Rinsed/ Irrigated with Irrigated with Saline Saline -Foul Odor after Cleansing No No -Bioengineered Tissue No No -Bleeding Controlled with Pressure Pressure -Treatment Response Procedure Procedure Tolerated Well Tolerated Well Pain Scale: 0-10 Numeric Is Patient Pain Free? Yes Yes Wound debrided: plantar heel Laterality: Left Wound Grade/Stage: grade 3 Type of Debridement: Excisional debridement Anesthesia Used: 4% Lidocaine Solution Depth: in the subcutaneous layer Instrument Used: 5mm curette Tissue Removed: fibrous, devitalized subcutaneous, biofilm, slough Severity: Fat Layer Exposed Amount of bleeding with debridement: Mild Bleeding Controlled with: Pressure Patient tolerated procedure well - Additional Wound Wound debrided: dorsal foot Laterality: Left Wound Grade/Stage: grade 1 Anesthesia Used: 4% Lidocaine Solution Depth: in the subcutaneous layer Percentage of wound debrided: 100 Instrument Used: 5mm curette Severity: Fat Layer Exposed Amount of bleeding with debridement: Mild Bleeding Controlled with: Pressure Patient tolerated procedure: Patient tolerated procedure well - Additional Wound Wound debrided: distal 2 toe Laterality: Left Wound Grade/Stage: grade 1 Type of Debridement: Excisional debridement Anesthesia Used: 4% Lidocaine Solution Depth: in the subcutaneous layer Percentage of wound debrided: 100 Instrument Used: 5mm curette Severity: Fat Layer Exposed Amount of bleeding with debridement: Mild Bleeding Controlled with: Pressure Patient tolerated procedure: Patient tolerated procedure well - Additional Wound Wound debrided: posterior medial leg Wound Grade/Stage: grade 1 Type of Debridement: Excisional debridement Anesthesia Used: 4% Lidocaine Solution Depth: in the subcutaneous layer Percentage of wound debrided: 100 Instrument Used: 5mm curette Tissue Removed: fibrous, devitalized subcutaneous, biofilm, slough Severity: Fat Layer Exposed Amount of bleeding with debridement: Mild Bleeding Controlled with: Pressure Patient tolerated procedure: Patient tolerated procedure well - Additional Wound Wound debrided: anterior ankle Laterality: Left Wound Grade/Stage: grade 1 Type of Debridement: Excisional debridement Anesthesia Used: 4% Lidocaine Solution Depth: in the subcutaneous layer Percentage of wound debrided: 100 Instrument Used: #15 blade Tissue Removed: fibrous, devitalized subcutaneous, biofilm, slough Severity: Fat Layer Exposed Amount of bleeding with debridement: Mild Bleeding Controlled with: Pressure Patient tolerated procedure: Patient tolerated procedure well Assessment/Plan Active Problems Ulcer of left lower extremity with fat layer exposed (Chronic) Type 2 diabetes mellitus with diabetic polyneuropathy (Chronic) Localized edema (Chronic) Chronic ulcer of left foot with fat layer exposed (Chronic) PAD (peripheral artery disease) (Chronic) Assessment: Plantar left heel ulcer - with deeper muscle / fascia tissue involved, resolving infection. Posterior left leg ulcer. Medial / anterior left ankle ulcer. Second distal toe ulcer. Bilateral lower extremity edema. Peripheral vascular disease. Diabetes with neuropathy. Malnutrition. Delayed healing. Gait impairment Plan: I reviewed and discussed his case and care plan today. I recommend application of Santyl to wounds daily. I recommend going to the operating room for surgical versa jet debridement application of advanced wound care product, Amniofill and epi cord, with ARIEL wound vac application to the left heel to help optimize a timely healing process. Anticipated anesthesia is local with possible light MAC. This is medically necessary for limb salvage and wound healing. The family is amenable to proceed at this time as is the patient. His recent history and physical exam was reviewed from his hospital admission at [facility]. Informed surgical consents were signed today. I answered his questions. I answered his family's questions. The preoperative indications, planned procedure possible benefits, risks, complications and anticipated healing time management were discussed in detail today. To offload these wounds sites by controlling compression. To continue with double Tubigrip suture applied today. To elevate the limbs at rest. To avoid idle standing or sitting in the dependent position. To offload the heel by wearing a surgical shoe and placing more pressure on the forefoot. This was dispensed last week and additional felt offloading material was fabricated today to take pressure off of the ulcer site. We discussed other offloading mechanisms such as a cam walker will hold off on this time because of his leg wounds and his gait instability. To remain nonweightbearing and use a walker. He was advised to continue with nutritional supplementation; he took Rito during his most recent hospital admission. He responded well to IV antibiotics while in house and he was reassured he does not appear to have any local or systemic signs of illness at this time. To monitor closely. His previous x- rays and MRI did not demonstrate bone infection however muscle and fascia tissue are involved at the plantar heel site. Serial labs will be followed. He understands he is at risk for limb loss and his wound healing process will likely be staged and complex. Indications, anticipated management, and benefits and risks of hyperbaric oxygen therapy were reviewed today. His daughter and patient are interested in considering this option however cannot commit to being able to come over here on a daily basis for at least 40 sessions. I provided education today and they will further consider this. They understand that preauthorization from the insurance and medical clearance also need to be obtained once he can confirm his attendance. His surgery is scheduled for this Thursday at 1 PM and this is an anticipated outpatient procedure. He will further follow-up at the wound care center next Thursday.
[2017-10-14 10:14] VITALS: BP 100/52; PULSE 100; RESP 18; TEMP 35.7; BMI 36.5
--- NOTE | 2017-10-14 10:43 | NURSING ---
This nurse spoke with Dr. Hanson this morning prior to clinic starting in regards to her mention of possible HBO for this pt in her progress note from 10/07/17. This nurse asked if an HBO consult should be scheduled since the DrVladimir had spoken to the pt about their potential benefit from HBO. Dr. Hanson states that when speaking with pt and family at their previous appt that they said he probably wouldn't do it this was based on transportation and family responsibility to get pt to and from appts. The family and pt did speak of interest in the tx but unsure of ability to get pt to tx every day as needed. Dr. Hanson stated that if this nurse or even the CNM Galen could speak with the pt and the family more in depth about the benefits of HBO that it would be appreciate and may be what the pt and family need to proceed. Dr. Hanson does not want to start the screening process until the family and the pt are fully on board and able to make it to tx everyday. Will follow up with Dr. Hanson about moving forward. This nurse is unable to speak with the pt today due to having pts in HBO at the time of the pts appt.
--- NOTE | 2017-10-14 11:53 | PCM.WC.PN ---
(1) Ulcer of left lower extremity with fat layer exposed Status: Chronic Current Visit: Yes Code(s): L97.922 - Non-pressure chronic ulcer of unspecified part of left lower leg with fat layer exposed (2) Type 2 diabetes mellitus with diabetic polyneuropathy Status: Chronic Current Visit: Yes Code(s): E11.42 - Type 2 diabetes mellitus with diabetic polyneuropathy (3) Localized edema Status: Chronic Current Visit: No Code(s): R60.0 - Localized edema (4) PAD (peripheral artery disease) Status: Chronic Current Visit: Yes Code(s): I73.9 - Peripheral vascular disease, unspecified (5) Chronic ulcer of left foot with necrosis of muscle Status: Chronic Current Visit: Yes Code(s): L97.523 - Non-pressure chronic ulcer of other part of left foot with necrosis of muscle Type of Wound Date of Service: 10/14/17 Chief Complaint: Left heel, toe, left leg ulcers History of Wound: This 77-year-old male with multiple comorbidities is following up for multiple wounds to left lower extremity. He had surgical versa jet debridement last Thursday with application of advanced wound care products, Johnny fell and epi cord. He is remain nonweightbearing is advised. He wears a surgical shoe. He denies redness or odor. He denies fever, chill, nausea, vomiting. He has continued swelling to both lower extremities. He is with his daughter and today. He recently reports he is unable to attend on a weekly basis due to extreme fatigue and exhaustion and alteration of quality of life by making weekly visits. His family is also concerned about his transportation safety and would like to transition him into a monthly palliative care plan was discussed at length today. They understand this may delay further healing. Progress of Wound: Improved quality - Physical Exam Vital Signs Temp Pulse Resp BP 96.3 F L 100 18 100/52 L 10/14/17 10:14 10/14/17 10:14 10/14/17 10:14 10/14/17 10:14 General: Alert, Oriented x3, Cooperative, Lethargic HEENT: Atraumatic Extremities: No cyanosis, Capillary Refill Less than 3 Seconds, No Calf Tenderness - Negative Randi and Maier left, Diminished Peripheral Pulses, Edema - Bilateral lower extremities Skin: Ulcer/ Wound - No purulence, no erythema, streaking, no odor, no acute infection. There is improved granulation tissue to the plantar left heel and dorsal foot. The adjacent skin is atrophic and no hair is noted. There is full epithelialization noted to the posterior leg ulcer site is healed today. Sutures are intact to the plantar foot and there is some incorporation of the advanced wound care products. Wound Measurements and Assessment WC - Nurse 1 - General Ulcer Measurement Start: 09/30/17 10:47 Freq: Status: Active Protocol: Activity Type Activity Date Activity User E-Sign Co-Sign Detail Recorded Client Recorded Date Recorded By Document 10/14/17 10:14 RB [id number] 10/14/17 10:49 RB 10/14/17 10:14 Wound Center Nurse 1 [Ulcer Assessment] #5 L 2nd toe -Combined with other wound No -Current Size (cm) - Length 0.8 -Current Size (cm) - Width 1.6 -Current Size (cm) - Depth 0.1 -Total Square Cm 1.28 -Epithelialization Small 1-33% -Tunneling No -Undermining/Tunneling No -Circular Undermining No -Classification - Thickness Full Thickness without Exposed Support Structure -Change in Wound Grade/Stage Yes Query Text:If change please identify the Stage/Grade in the comment (ie. S2 G3) -Exudate Amt Small (1-33%) -Exudate Type Sanguineous -Wound Margin Distinct, Outline Attached -Granulation Amt Medium (34-66%) -Granulation Quality [place] -Slough/Fibrin Yes -Necrosis Amt Small (1-33%) -Necrotic Tissue Type Adherent Slough -Structure Exposed N/A -Texture (Irma-wound Skin Appearance) Assessed -Moisture (Irma-wound Skin Appearance Assessed ) Maceration -Color (Irma-wound Skin Appearance) Assessed -Temperature (Irma-wound Skin No Abnormality Appearance) (Pt Warm) -Tenderness on Palpation (Irma-wound No Skin Appearance) -Ulcer Cleansing Rinsed/ Irrigated with Saline -Foul Odor after Cleansing No -Anesthetic Used 5% Lidocaine Gel #4 L Ant Ankle -Combined with other wound No -Current Size (cm) - Length 0.3 -Current Size (cm) - Width 0.2 -Current Size (cm) - Depth 0.1 -Total Square Cm 0.06 -Photo Taken No -Tunneling No -Undermining/Tunneling No -Circular Undermining No -Classification - Thickness Full Thickness without Exposed Support Structure -Exudate Amt None Present (0 %) -Wound Margin Distinct, Outline Attached -Granulation Amt Small (1-33%) -Granulation Quality [place] -Slough/Fibrin Yes -Necrosis Amt Large (67-100%) -Necrotic Tissue Type Adherent Slough -Structure Exposed N/A -Texture (Irma-wound Skin Appearance) Assessed -Moisture (Irma-wound Skin Appearance Assessed ) Dry/Scaly -Color (Irma-wound Skin Appearance) Assessed -Temperature (Irma-wound Skin No Abnormality Appearance) (Pt Warm) -Tenderness on Palpation (Irma-wound Yes Skin Appearance) -Ulcer Cleansing Rinsed/ Irrigated with Saline -Foul Odor after Cleansing No -Anesthetic Used 5% Lidocaine Gel #3 L Lower Calf Cluster -Combined with other wound No -Current Size (cm) - Length 2 -Current Size (cm) - Width 5 -Current Size (cm) - Depth 0.1 -Total Square Cm 10 -Photo Taken No -Tunneling No -Undermining/Tunneling No -Circular Undermining No -Classification - Thickness Full Thickness without Exposed Support Structure -Exudate Amt None Present (0 %) -Wound Margin Distinct, Outline Attached -Granulation Amt Small (1-33%) -Granulation Quality [place] -Slough/Fibrin Yes -Necrosis Amt Large (67-100%) -Necrotic Tissue Type Adherent Slough -Structure Exposed N/A -Texture (Irma-wound Skin Appearance) Assessed -Moisture (Irma-wound Skin Appearance Assessed ) Dry/Scaly -Color (Irma-wound Skin Appearance) Assessed -Temperature (Irma-wound Skin No Abnormality Appearance) (Pt Warm) -Tenderness on Palpation (Irma-wound No Skin Appearance) -Ulcer Cleansing Rinsed/ Irrigated with Saline -Foul Odor after Cleansing No -Anesthetic Used 5% Lidocaine Gel #2 L Heel -Combined with other wound No -Current Size (cm) - Length 1.7 -Current Size (cm) - Width 2.2 -Current Size (cm) - Depth 2 -Total Square Cm 3.74 -Photo Taken No -Tunneling No -Undermining/Tunneling No -Circular Undermining No -Classification - Thickness Full Thickness without Exposed Support Structure -Exudate Amt Medium (34-66%) -Exudate Type Serosanguineous -Wound Margin Thickened & Rolled Under -Granulation Amt Medium (34-66%) -Granulation Quality [place] -Slough/Fibrin Yes -Necrosis Amt Medium (34-66%) -Necrotic Tissue Type Adherent Slough -Structure Exposed N/A -Texture (Irma-wound Skin Appearance) Assessed -Moisture (Irma-wound Skin Appearance Maceration ) -Color (Irma-wound Skin Appearance) Assessed -Temperature (Irma-wound Skin No Abnormality Appearance) (Pt Warm) -Tenderness on Palpation (Irma-wound No Skin Appearance) -Ulcer Cleansing Rinsed/ Irrigated with Saline -Foul Odor after Cleansing No -Anesthetic Used 5% Lidocaine Gel #1 L Dorsal -Combined with other wound No -Current Size (cm) - Length 3 -Current Size (cm) - Width 2.5 -Current Size (cm) - Depth 0.1 -Total Square Cm 7.5 -Photo Taken No -Tunneling No -Undermining/Tunneling No -Circular Undermining No -Classification - Thickness Full Thickness without Exposed Support Structure -Exudate Amt Small (1-33%) -Exudate Type Serosanguineous -Wound Margin Distinct, Outline Attached -Granulation Amt Medium (34-66%) -Granulation Quality [place] -Slough/Fibrin Yes -Necrosis Amt Medium (34-66%) -Necrotic Tissue Type Adherent Slough -Structure Exposed N/A -Texture (Irma-wound Skin Appearance) Assessed -Moisture (Irma-wound Skin Appearance Assessed ) -Color (Irma-wound Skin Appearance) Assessed -Temperature (Irma-wound Skin No Abnormality Appearance) (Pt Warm) -Tenderness on Palpation (Irma-wound No Skin Appearance) -Ulcer Cleansing Rinsed/ Irrigated with Saline -Foul Odor after Cleansing No -Anesthetic Used 5% Lidocaine Gel [Edema Assessment] -Lower Limb Edema Present Yes -Left Calf (cm) 38.5 -Left Ankle (cm) 26 WC - Nurse 2 - General Ulcer CM Notes Start: 09/30/17 10:47 Freq: Status: Active Protocol: Activity Type Activity Date Activity User E-Sign Co-Sign Detail Recorded Client Recorded Date Recorded By Document 10/14/17 11:09 [email or web address] [id number] 10/14/17 11:17 RAYMOND 10/14/17 11:09 Wound Center Nurse 2 [Procedure/Treatment] #5 L 2nd toe -Time 11:13 -Correct Patient Yes -Correct Side, Site, Position Yes -Correct Procedure Yes -Procedure Performed Yes -Type of Procedure Debridement -Clinical Debridement Subcutaneous -Post Debridement Size (cm) - Length 1 -Post Debridement Size (cm) - Width 1.6 -Post Debridement Size (cm) - Depth 0.1 -Total Square Cm 1.6 -Wound/Ulcer Outcome Not Healed -Ulcer Cleansing Rinsed/ Irrigated with Saline -Foul Odor after Cleansing No -Bioengineered Tissue No -Bleeding Controlled with Pressure -Treatment Response Procedure Tolerated Well #4 L Ant Ankle -Time 11:14 -Correct Patient Yes -Correct Side, Site, Position Yes -Correct Procedure Yes -Procedure Performed Yes -Type of Procedure Debridement -Clinical Debridement Subcutaneous -Post Debridement Size (cm) - Length 0.3 -Post Debridement Size (cm) - Width 0.3 -Post Debridement Size (cm) - Depth 0.1 -Total Square Cm 0.09 -Wound/Ulcer Outcome Not Healed -Ulcer Cleansing Rinsed/ Irrigated with Saline -Foul Odor after Cleansing No -Bioengineered Tissue No -Bleeding Controlled with Pressure -Treatment Response Procedure Tolerated Well #3 L Lower Calf Cluster -Time 11:14 -Correct Patient No -Correct Side, Site, Position No -Correct Procedure No -Procedure Performed No -Post Debridement Size (cm) - Length 0 -Post Debridement Size (cm) - Width 0 -Post Debridement Size (cm) - Depth 0 -Total Square Cm 0 -Wound/Ulcer Outcome Healed- Epithelialized #2 L Heel -Correct Patient No -Correct Side, Site, Position No -Correct Procedure No -Procedure Performed No #1 L Dorsal -Time 11:15 -Correct Patient Yes -Correct Side, Site, Position Yes -Correct Procedure Yes -Procedure Performed Yes -Type of Procedure Debridement -Clinical Debridement Subcutaneous -Post Debridement Size (cm) - Length 3.0 -Post Debridement Size (cm) - Width 2.6 -Post Debridement Size (cm) - Depth 0.1 -Total Square Cm 7.80 -Wound/Ulcer Outcome Not Healed -Ulcer Cleansing Rinsed/ Irrigated with Saline -Foul Odor after Cleansing No -Bioengineered Tissue No -Bleeding Controlled with Pressure -Treatment Response Procedure Tolerated Well [See Physician Procedure note for Specifics] Pain Scale: 0-10 Numeric [Pain] -Is Patient Pain Free? Yes Musculoskeletal: No Tenderness to Palpation of Joints or Extremities, Muscle Wasting, - - No pain with wound manipulation Neurological: - - Lack of epicritic sensation light touch left lower extremity Psych/Mental Status: Normal Affect, Appropriate Debridement Note Post-Debridement Measurements/Treatment WC - Nurse 2 - General Ulcer CM Notes Start: 09/30/17 10:47 Freq: Status: Active Protocol: Activity Type Activity Date Activity User E-Sign Co-Sign Detail Recorded Client Recorded Date Recorded By Document 09/30/17 11:56 [id number] 09/30/17 12:03 Document 10/07/17 08:42 [id number] 10/07/17 08:47 Document 10/14/17 11:09 [id number] 10/14/17 11:17 09/30/17 10/07/17 10/14/17 11:56 08:42 11:09 Wound Center Nurse 2 #5 L 2nd toe -Time 11:56 08:43 11:13 -Correct Patient Yes Yes Yes -Correct Side, Site, Position Yes Yes Yes -Correct Procedure Yes Yes Yes -Procedure Performed Yes Yes Yes -Type of Procedure Debridement Debridement Debridement -Clinical Debridement Subcutaneous Subcutaneous Subcutaneous -Post Debridement Size (cm) - Length 1.3 1.2 1 -Post Debridement Size (cm) - Width 2 1.8 1.6 -Post Debridement Size (cm) - Depth 0.1 0.1 0.1 -Total Square Cm 2.6 2.16 1.6 -Wound/Ulcer Outcome Not Healed Not Healed Not Healed -Ulcer Cleansing Rinsed/ Rinsed/ Rinsed/ Irrigated with Irrigated with Irrigated with Saline Saline Saline -Foul Odor after Cleansing No No No -Bioengineered Tissue No No No -Bleeding Controlled with Pressure Pressure Pressure -Treatment Response Procedure Procedure Procedure Tolerated Well Tolerated Well Tolerated Well #4 L Ant Ankle -Time 11:57 08:44 11:14 -Correct Patient Yes Yes Yes -Correct Side, Site, Position Yes Yes Yes -Correct Procedure Yes Yes Yes -Procedure Performed Yes Yes Yes -Type of Procedure Debridement Debridement Debridement -Clinical Debridement Subcutaneous Subcutaneous Subcutaneous -Post Debridement Size (cm) - Length 0.3 0.4 0.3 -Post Debridement Size (cm) - Width 0.3 0.3 0.3 -Post Debridement Size (cm) - Depth 0.2 0.1 0.1 -Total Square Cm 0.09 0.12 0.09 -Wound/Ulcer Outcome Not Healed Not Healed Not Healed -Ulcer Cleansing Rinsed/ Rinsed/ Rinsed/ Irrigated with Irrigated with Irrigated with Saline Saline Saline -Foul Odor after Cleansing No No No -Bioengineered Tissue No No No -Bleeding Controlled with Pressure Pressure Pressure -Treatment Response Procedure Procedure Procedure Tolerated Well Tolerated Well Tolerated Well #3 L Lower Calf Cluster -Time 11:57 08:46 11:14 -Correct Patient Yes Yes No -Correct Side, Site, Position Yes Yes No -Correct Procedure Yes Yes No -Procedure Performed Yes Yes No -Type of Procedure Debridement Debridement -Clinical Debridement Subcutaneous Subcutaneous -Post Debridement Size (cm) - Length 4.4 3.5 0 -Post Debridement Size (cm) - Width 2.5 1.1 0 -Post Debridement Size (cm) - Depth 0.1 0.1 0 -Total Square Cm 11.00 3.85 0 -Wound/Ulcer Outcome Not Healed Not Healed Healed- Epithelialized -Ulcer Cleansing Rinsed/ Rinsed/ Irrigated with Irrigated with Saline Saline -Foul Odor after Cleansing No No -Bioengineered Tissue No No -Bleeding Controlled with Pressure Pressure -Treatment Response Procedure Procedure Tolerated Well Tolerated Well #2 L Heel -Time 11:57 08:43 -Correct Patient Yes Yes No -Correct Side, Site, Position Yes Yes No -Correct Procedure Yes Yes No -Procedure Performed Yes Yes No -Type of Procedure Debridement Debridement -Clinical Debridement Subcutaneous Subcutaneous -Post Debridement Size (cm) - Length 2 1.5 -Post Debridement Size (cm) - Width 2.3 1.8 -Post Debridement Size (cm) - Depth 1.8 2.2 -Total Square Cm 4.6 2.70 -Wound/Ulcer Outcome Not Healed Not Healed -Ulcer Cleansing Rinsed/ Rinsed/ Irrigated with Irrigated with Saline Saline -Foul Odor after Cleansing No No -Bioengineered Tissue No No -Bleeding Controlled with Pressure Pressure -Treatment Response Procedure Procedure Tolerated Well Tolerated Well #1 L Dorsal -Time 11:58 08:45 11:15 -Correct Patient Yes Yes Yes -Correct Side, Site, Position Yes Yes Yes -Correct Procedure Yes Yes Yes -Procedure Performed Yes Yes Yes -Type of Procedure Debridement Debridement Debridement -Clinical Debridement Subcutaneous Subcutaneous Subcutaneous -Post Debridement Size (cm) - Length 3.5 1.2 3.0 -Post Debridement Size (cm) - Width 2.6 1.8 2.6 -Post Debridement Size (cm) - Depth 0.2 0.1 0.1 -Total Square Cm 9.10 2.16 7.80 -Wound/Ulcer Outcome Not Healed Not Healed Not Healed -Ulcer Cleansing Rinsed/ Rinsed/ Rinsed/ Irrigated with Irrigated with Irrigated with Saline Saline Saline -Foul Odor after Cleansing No No No -Bioengineered Tissue No No No -Bleeding Controlled with Pressure Pressure Pressure -Treatment Response Procedure Procedure Procedure Tolerated Well Tolerated Well Tolerated Well Pain Scale: 0-10 Numeric Is Patient Pain Free? Yes Yes Yes Wound debrided: distal toe Laterality: Left Wound Grade/Stage: grade 1 Type of Debridement: Excisional debridement Anesthesia Used: 5% Lidocaine Gel Depth: in the subcutaneous layer Percentage of wound debrided: 100 Instrument Used: #15 blade Tissue Removed: fibrous, devitalized subcutaneous, biofilm, slough - Additional Wound Wound debrided: part of dorsal foot Laterality: Left Wound Grade/Stage: grade 1 Type of Debridement: Excisional debridement Anesthesia Used: 5% Lidocaine Gel Depth: in the subcutaneous layer Percentage of wound debrided: 50 Instrument Used: #15 blade Tissue Removed: fibrous, devitalized subcutaneous, biofilm, slough Severity: Fat Layer Exposed Amount of bleeding with debridement: Mild Bleeding Controlled with: Pressure Patient tolerated procedure: Patient tolerated procedure well - Additional Wound Wound debrided: medial ankle Laterality: Left Wound Grade/Stage: grade 1 Type of Debridement: Excisional debridement Anesthesia Used: 5% Lidocaine Gel Depth: in the subcutaneous layer Percentage of wound debrided: 100 Instrument Used: #15 blade Tissue Removed: fibrous, devitalized subcutaneous, biofilm, slough Severity: Fat Layer Exposed Amount of bleeding with debridement: Mild Bleeding Controlled with: Pressure Patient tolerated procedure: Patient tolerated procedure well - Additional Wound Wound debrided: plantar heel Laterality: Left Wound Grade/Stage: grade 3 Tissue Removed: not debrided: advanced wound care product is incorporating Assessment/Plan Active Problems Ulcer of left lower extremity with fat layer exposed (Chronic) Type 2 diabetes mellitus with diabetic polyneuropathy (Chronic) Chronic ulcer of left foot with necrosis of muscle (Chronic) Chronic ulcer of left foot with fat layer exposed (Chronic) PAD (peripheral artery disease) (Chronic) Assessment: Plantar left heel ulcer - with deeper muscle / fascia tissue involved, resolving infection. Posterior left leg ulcer - healed. Medial / anterior left ankle ulcer. Second distal toe ulcer. Bilateral lower extremity edema. Peripheral vascular disease. Diabetes with neuropathy. Malnutrition. Delayed healing. Gait impairment Plan: I reviewed and discussed his case and care plan today. I recommend application of Santyl to wounds daily. His recent surgical intervention is noted in the procedure was performed under local anesthetic only. To offload these wounds sites by controlling compression and remaining nonweightbearing to left lower extremity. To continue with double Tubigrip applied today. To elevate the limbs at rest. To avoid idle standing or sitting in the dependent position. To offload the heel by wearing a surgical shoe and placing more pressure on the forefoot. To remain nonweightbearing and use a walker. He was advised to continue with nutritional supplementation; he took Rito during his most recent hospital admission. He responded well to IV antibiotics while in house and he was reassured he does not appear to have any local or systemic signs of illness at this time. To monitor closely. His previous x-rays and MRI did not demonstrate bone infection however muscle and fascia tissue are involved at the plantar heel site. He understands he is at risk for limb loss and his wound healing process will likely be staged and complex. He has had somewhat of a breakdown this past week and reports he is not feeling safe traveling to the wound center every week and his quality of life is significantly impaired. His family is having very hard time within this week and would like him to proceed on a monthly basis. We discussed palliative versus complex and he will be placed on palliative care plan at this time. His most appropriate. He understands this not recommended for timely wound healing and advanced measures will no longer be pursued. In the meantime, I recommend allowing advanced wound care product to continue to incorporate in. There has been significant improvement the past 5 days and this is encouraging. Hydrogel and a new wound veil was applied to the wounds. To continue change of the dressings with Santyl. His daughter is a nurse and will remove the there is an further apply wound dressing to the heel went 2 weeks elapse. The refused hyperbaric oxygen therapy at this time for the same reason as to why he cannot attend weekly at this time. I answered her questions and encouraged them to resume the traditional wound care plan after they reconsider this or if he has a status change. At this time he defers advanced wound care product application on triweekly basis in the operating room.
== END 2017-10-19 23:59 ==
LOC: WC 10:15
PROVIDERS: Family Provider Family Medicine; PCP Family Medicine; Visit Provider Podiatrist
DX: E11.622 Type 2 diabetes mellitus with other skin ulcer (principal); E11.42 Type 2 diabetes mellitus with diabetic polyneuropathy; R60.0 Localized edema; E11.51 Type 2 diabetes mellitus with diabetic peripheral angiopathy without gangrene; I25.2 Old myocardial infarction; E78.5 Hyperlipidemia, unspecified; I50.9 Heart failure, unspecified; I25.10 Atherosclerotic heart disease of native coronary artery without angina pectoris; I13.0 Hypertensive heart and chronic kidney disease with heart failure and stage 1 through stage 4 chronic kidney disease, or unspecified chronic kidney disease; N18.3 Chronic kidney disease, stage 3 (moderate); E11.22 Type 2 diabetes mellitus with diabetic chronic kidney disease; L97.322 Non-pressure chronic ulcer of left ankle with fat layer exposed; L97.422 Non-pressure chronic ulcer of left heel and midfoot with fat layer exposed; L97.522 Non-pressure chronic ulcer of other part of left foot with fat layer exposed; L97.822 Non-pressure chronic ulcer of other part of left lower leg with fat layer exposed
CPT/HCPCS: 11042; 11045; 97602; 99213; G0463

== ENCOUNTER 2017-10-20 11:38 | Emergency (ER) | payer MEDICARE, SELFPAY ==
[2017-10-20 11:39] VITALS: BP 108/55; PULSE 100; RESP 16; TEMP 36.3; BMI 38.1
--- NOTE | 2017-10-20 11:56 | ED.VISSUMM ---
- ER Visit Summary Date of Service: 10/20/17 Chief Complaint: Urinary retention History of Present Illness: The patient is a 77 M history of insulin-dependent diabetes, CAD, hypertension, chronic anemia and chronic renal insufficiency. September 19 of this year patient was admitted for urinary retention and found to have renal insufficiency. He has done well since. States he has not urinated since yesterday at noon. Complaining of suprapubic fullness. No vomiting. No diarrhea. No recent hematuria or dysuria. Physical Examination: Older male no acute distress vital signs are stable afebrile. HEENT exam unremarkable. Lungs clear to auscultation. Heart regular rate and rhythm no murmur. Abdomen obese but soft he has suprapubic fullness. No peritoneal signs. External exam he is uncircumcised. Nontender. Moving all 4 extremities. Both lower extremities have trace edema that pits bilaterally. Neurologically is awake and alert with no focal motor deficits. Test Results: UA is unremarkable. Electrolytes show chronic renal insufficiency with a BUN of 71 creatinine 2.84 typically his creatinines run between 1.3 and 3. Gap normal. Potassium 3.4. Emergency Department Course and Treatment: Nurses will attempt to place a Sosa catheter. Urinalysis and chemistry panel will be obtained. Treatment Plan: Exam patient is doing better after Sosa catheter was placed he has voided several 100 cc of yellow urine. Disposition: discharge Impression: Urinary retention History of insulin-dependent diabetes and CAD and hypertension History of chronic renal insufficiency This note was generated with [employer] dictation software. It may contain incorrect words, spelling, and punctuation that were not noted in review of the chart prior to signing ED Disposition - Plan for ED Patient: Chief Complaint: Complaint Referrals: Kian Valdez III, MD [Primary Care Provider] -
[2017-10-20 12:40] LABS: Mucous, Urine 0 SEEN /hpf (<or=2+); Red Blood Cells-Urine 0 SEEN /hpf (0-5)
[2017-10-20 12:47] LABS: Color, Urine Yellow (Yellow); Glucose, Dipstick Normal (Normal); Ketone-Dipstick Negative (Negative); Leukocyte Esterase-Dipstick 25 /ul (Negative); Nitrite-Dipstick Negative (Negative); Occult Blood-Urine Negative /ul (Negative); Protein-Dipstick Negative (Negative); Urine Bilirubin Dipstick Negative (Negative); Urine Clarity Sl. Cloudy (Clear); Urine Urobilinogen Normal (Normal)
[2017-10-20 12:57] LABS: Bacteria 1+ /hpf (None Seen); Squamous Epithelial Cells - UA 0-5 SEEN /hpf (0-5); White Blood Cells 0-5 SEEN /hpf (0-5)
[2017-10-20 13:12] LABS: Anion Gap 13 (5-15); BUN 71 mg/dL (7-18); Chloride 95 mmol/L (98-107); Creatinine, Serum 2.84 mg/dL (0.70-1.30); EST Glomerular Filtration Rate 23 mL/min (>60); Est Glom Filt Rate - Afr Amer 28 mL/min (>60); Estimated Creatinine Clearance 20.74 ml/min; Glucose 134 mg/dL (74-106); Potassium 3.4 mmol/L (3.5-5.1); Sodium Level 131 mmol/L (136-145)
[2017-10-20 15:10] VITALS: BP 107/66; PULSE 91; RESP 18; O2SAT 91
--- NOTE | 2017-10-20 15:34 | ED.DEP ---
ED Disposition - Plan for ED Patient: Disposition: Home or Assisted Living Chief Complaint: Complaint Instructions: ED Retention Urinary Male Referrals: Kian Valdez III, MD [Primary Care Provider] - As Needed Jorje Newell MD [STAFF PHYSICIAN] - As soon as possible Additional Instructions: Call and follow-up with Dr. Darrell Newell
== END 2017-10-20 16:12 | disposition home or self-care (01) ==
PROVIDERS: Emergency Provider Emergency Medicine; Family Provider Family Medicine; PCP Family Medicine
DX: R33.9 Retention of urine, unspecified (principal); I12.9 Hypertensive chronic kidney disease with stage 1 through stage 4 chronic kidney disease, or unspecified chronic kidney disease; E11.22 Type 2 diabetes mellitus with diabetic chronic kidney disease; N18.9 Chronic kidney disease, unspecified; I25.10 Atherosclerotic heart disease of native coronary artery without angina pectoris; D64.9 Anemia, unspecified; I25.2 Old myocardial infarction; Z79.4 Long term (current) use of insulin; Z79.82 Long term (current) use of aspirin; Z79.899 Other long term (current) drug therapy
CPT/HCPCS: 51702; 80048; 81001; 99285; A4216

== ENCOUNTER → 2017-12-14 17:39 | Outpatient (CLI) | payer MEDICARE, SELFPAY ==
[2017-12-14 18:01] LABS: Anion Gap 11 (5-15); BUN 66 mg/dL (7-18); Chloride 105 mmol/L (98-107); Creatinine, Serum 2.75 mg/dL (0.70-1.30); EST Glomerular Filtration Rate 24 mL/min (>60); Est Glom Filt Rate - Afr Amer 29 mL/min (>60); Glucose 81 mg/dL (74-106); Potassium 5.4 mmol/L (3.5-5.1); Sodium Level 135 mmol/L (136-145)
== END ==
PROVIDERS: Family Provider Family Medicine; PCP Family Medicine
DX: N18.3 Chronic kidney disease, stage 3 (moderate) (principal); E08.65 Diabetes mellitus due to underlying condition with hyperglycemia; R60.9 Edema, unspecified
CPT/HCPCS: 80048